=== PATIENT | male | born 1950 | race Caucasian/White ===

== ENCOUNTER 2017-03-26 17:22 | Inpatient (IN) | payer MEDICARE, MEDICAID ==
[~2017-03-26] VITALS: Ht 157.5 cm; Wt 59.0 kg
[2017-03-26 09:00] VITALS: BP 134/79
--- NOTE | 2017-03-26 17:26 | NUR ---
KRISS FROM [facility] DT SP FALL. NO KO, PT IS CO BOTH KNEES PAIN. PATIENT IS ALERT, HOWEEVR CONFUSED. APPEARS IN NO APPARENT DISTRESS. RECEIVED PT ON NON REBREATHER-- SATING 98%. PER REPORT PT WAS SATING HIGH 80S ON ROOM AIR. WILL CONT TO MONITOR. PENDING MD MAHARAJ
[2017-03-26] MEDS ORDERED: BUDE180A IH (17:41)
[2017-03-26] MEDS ORDERED: DOCU-141 PO (17:41)
[2017-03-26] MEDS ORDERED: MONT10TA22 PO (17:41)
[2017-03-26] MEDS ORDERED: TOLN15CR TP (17:41)
[2017-03-26] MEDS ORDERED: ALBU18HF2 IH (17:41)
[2017-03-26] MEDS ORDERED: POTA20TA83 PO (17:41)
[2017-03-26] MEDS ORDERED: DILT240C2 PO (17:41)
[2017-03-26] MEDS ORDERED: FURO40TA5 PO (17:41)
[2017-03-26] MEDS ORDERED: TRIA15CR2 TP (17:41)
[2017-03-26] MEDS ORDERED: Magnesium 1GM/D5W 100ML PREMIX 200 ML IV ONE (17:53)
--- NOTE | 2017-03-26 17:55 | NUR ---
CALLED RT FOR ABG AND BREATHING TREATMENT
[2017-03-26] MEDS ORDERED: DEXAMETHASONE SOD PHOSPHATE 10 MG/ML VIAL ONE (17:59)
[2017-03-26] MEDS ORDERED: Magnesium 1GM/D5W 100ML PREMIX 100 ML IV ONE ×2 (17:59→18:10)
[2017-03-26] MEDS ORDERED: DEXAMETHASONE SOD PHOSPHATE 10 MG/ML VIAL IV ONE (18:00)
[2017-03-26] MEDS ORDERED: IPRATROPIUM NEB FS 0.5 MG/2.5 ML AMPUL.NEB NEB ONE (18:00)
[2017-03-26] MEDS ORDERED: ALBUTEROL FS 2.5 MG/3 ML VIAL.NEB CONTNEB ONE (18:00)
[2017-03-26] MEDS ORDERED: ALBUTEROL FS 2.5 MG/3 ML VIAL.NEB ONE (18:03)
[2017-03-26] MEDS ORDERED: IPRATROPIUM NEB FS 0.5 MG/2.5 ML AMPUL.NEB ONE (18:03)
[2017-03-26 18:20] LABS: BASOPHILS % (AUTO) 0.3 % (0.0-2.0); EOSINOPHILS % (AUTO) 0.1 % (0.0-6.0); HEMATOCRIT 48 % (39-51); HEMOGLOBIN 16.4 g/dL (13.5-17.5); LYMPHOCYTES # (AUTO) 0.7 /CMM (0.8-4.8); LYMPHOCYTES % (AUTO) 8.8 % (20.0-44.0); MEAN CORPUSCULAR HEMOGLOBIN 32 PG (26.0-33.0); MEAN CORPUSCULAR HGB CONC 34 g/dl (31.0-36.0); MEAN CORPUSCULAR VOLUME 93 fL (80-96); MONOCYTES # (AUTO) 0.6 /CMM (0.1-1.30); MONOCYTES % (AUTO) 7.2 % (2.0-12.0); NEUTROPHILS # (AUTO) 6.4 /CMM (1.8-8.9); NEUTROPHILS % (AUTO) 83.6 % (43.0-81.0); PLATELET COUNT (AUTO) 196 /CMM (150-450); RDW COEFFICIENT OF VARIATION 11.8 (11.5-15.0); RED BLOOD CELL COUNT(AUTO) 5.14 MIL/uL (4.5-6.0); WHITE BLOOD COUNT (AUTO) 7.8 K/uL (4.3-11.0)
[2017-03-26 18:22] LABS: POTASSIUM 3.6 mmol/L (3.5-5.1)
[2017-03-26 18:31] LABS: ABG OXYGEN SATURATION 95.2 % (92.0-98.5); ABG PCO2 34.1 mmHg (35.0-45.0); ABG PH 7.495 (7.350-7.450); ABG PO2 71.1 mmHg (75.0-100.0); COHb 1.3 % (0.5-1.5); MetHb 0.6 % (0.0-1.5); O2Hb 93.4 % (94.0-97.0); SITE, ABG Right Radial; VENT MODE, BG SIMPLE MASK
[2017-03-26 18:33] LABS: TROPONIN I 1.431 ng/mL (0.00-0.056)
--- NOTE | 2017-03-26 18:36 | NUR ---
CALLED NURSING SUP. FOR TELE BED
--- NOTE | 2017-03-26 19:04 | NUR ---
REPORT GIVEN TO TIFFANY LYNNE FOR DILLAN
--- NOTE | 2017-03-26 19:07 | NUR ---
REPORT RECEIVED FROM [employer] FOR DILLAN.
[2017-03-26 19:19] LABS: BAND % (MANUAL) 13 % (0.0-5.0); LYMPHOCYTES % (MANUAL) 6 % (16-48); MONOCYTES % (MANUAL) 7 % (0-11.0); NEUTROPHILS % (MANUAL) 74 (42-76)
[2017-03-26] MEDS ORDERED: ASPIRIN 325 MG TABLET PO ONE (20:00)
[2017-03-26] MEDS ORDERED: NITROGLYCERIN PACKET 1 GM PACKET TOP ONE (20:00)
--- NOTE | 2017-03-26 20:10 | NUR ---
NURSES REPEATLY PUT O2 ON PT AND PT CONTINUES TO PULL IT OFF. NURSE SPOKE WITH PT REGARDING RISKS OF NOT WEARING O2. PT REFUSES. PT SAT 83%.
[2017-03-26] MEDS ORDERED: ASPIRIN 325 MG TABLET ONE (20:13)
[2017-03-26] MEDS ORDERED: NITROGLYCERIN PACKET 1 GM PACKET ONE (20:13)
--- NOTE | 2017-03-26 20:26 | NUR ---
D/C NITRO PASTE DUE TO PT B/P 95/47.
[2017-03-26] MEDS ORDERED: IV NS 0.9% 500 ML BAG IV ONE (20:30)
--- NOTE | 2017-03-26 20:35 | NUR ---
REPORT CALLED TO [facility] FOR DILLAN.
--- NOTE | 2017-03-26 20:45 | NUR ---
PT TRANS VIA STRETCHER TO TELE [id number] WITH RN, ACLS PROTOCOL. VSS.
--- NOTE | 2017-03-26 21:00 | NUR ---
MS RN NOTE RECEIVED PATIENT AWAKE ALERT AND ORIENTED ON GAIL FROM ER. PATIENT FELL AT "[facility] [place]". NO DISTRESS NOTED. PATIENT DENIES ANY PAIN AT THIS TIME. RECEIVING 3L OXYGEN VIA NASAL CANNULA. ALL BELONGINGS CHECKED AND ACCOUNTED FOR. IV SITE TO RAC INTACT, WITH BOLUS FINISHING ORDERED. SKIN INTACT, BUT SOME BRUISING NOTED. PICTURES TAKEN AND PLACED IN CHART. WOUND CONSULT ORDERED. ORIENTED PATIENT TO ROOM AND TO UNIT. WAITING FOR MD ORDERS. BED LOCKED AND IN LOWEST POSITION. SIDE RAILS UP, CALL LIGHT WITHIN REACH. WILL CONTINUE TO MONITOR.
[2017-03-26] MEDS ORDERED: HYDROCODONE/APAP 5/325MG 1 EACH TABLET PO PRN (22:30)
[2017-03-26] MEDS ORDERED: Z GUARD REMEDY 2 OZ OINT TP PRN (22:30)
[2017-03-26] MEDS ORDERED: MAGNESIUM HYDROXIDE 30 ML UDC PO PRN (22:30)
[2017-03-26] MEDS ORDERED: ONDANSETRON HCL/PF 4 MG/2 ML VIAL IVP PRN (22:30)
[2017-03-26] MEDS ORDERED: MAG HYDROX/AL HYDROX/SIMETH 30 ML UDC PO PRN (22:30)
[2017-03-26] MEDS ORDERED: ACETAMINOPHEN 325 MG TABLET PO PRN (22:30)
[2017-03-26] MEDS ORDERED: NITROGLYCERIN 0.4 MG/TAB BOTTLE SL PRN (22:30)
[2017-03-27] VITALS: BP_SYST 117; BP_SYST 121; BP_DIAS 79; BP_DIAS 83
[2017-03-27] MEDS ORDERED: LEVOFLOXACIN 750 MG /D5W 150ML 150 ML IV ONE (00:48)
[2017-03-27] MEDS: LEVOFLOXACIN 750 MG /D5W 150ML 750 MG in PREMIX 1 EA IV SCH (00:51)
[2017-03-27] MEDS ORDERED: ALBUTEROL FS 2.5 MG/0.5 ML VIAL.NEB ONE (01:45)
[2017-03-27] MEDS: ALBUTEROL FS 2.5 MG/0.5 ML VIAL.NEB NEB SCH ×4 (01:48→20:11)
[2017-03-27] MEDS ORDERED: LORAZEPAM INJ 2 MG/ML VIAL IV PRN (02:30)
[2017-03-27] MEDS ORDERED: LORAZEPAM INJ 2 MG/ML VIAL IV ONE (02:30)
[2017-03-27] MEDS ORDERED: LORAZEPAM INJ 2 MG/ML VIAL ONE (02:31)
[2017-03-27 04:00] VITALS: BP_SYST 117; BP_SYST 121; BP_DIAS 79; BP_DIAS 83
--- NOTE | 2017-03-27 06:09 | NUR ---
MS RN NOTE PATIENT STABLE. SLEEPING AT THIS TIME. ALL NEEDS MET AND ATTENDED TO. WILL ENDORSE TO DAY SHIFT FOR DILLAN.
[2017-03-27 07:23] LABS: BASOPHILS % (AUTO) 0.1 % (0.0-2.0); HEMATOCRIT 44 % (39-51); HEMOGLOBIN 14.7 g/dL (13.5-17.5); LYMPHOCYTES # (AUTO) 0.5 /CMM (0.8-4.8); LYMPHOCYTES % (AUTO) 8.6 % (20.0-44.0); MEAN CORPUSCULAR HEMOGLOBIN 32 PG (26.0-33.0); MEAN CORPUSCULAR HGB CONC 34 g/dl (31.0-36.0); MEAN CORPUSCULAR VOLUME 95 fL (80-96); MONOCYTES # (AUTO) 0.3 /CMM (0.1-1.30); MONOCYTES % (AUTO) 4.8 % (2.0-12.0); NEUTROPHILS # (AUTO) 4.8 /CMM (1.8-8.9); NEUTROPHILS % (AUTO) 86.5 % (43.0-81.0); PLATELET COUNT (AUTO) 181 /CMM (150-450); WHITE BLOOD COUNT (AUTO) 5.5 K/uL (4.3-11.0)
[2017-03-27 07:24] LABS: CALCIUM, SERUM 8.6 mg/dL (8.5-10.1); CREATININE 0.9 mg/dL (0.6-1.3); POTASSIUM 3.3 mmol/L (3.5-5.1)
[2017-03-27 07:33] LABS: ALBUMIN 2.3 g/dL (3.4-5.0); BILIRUBIN,TOTAL 1.7 mg/dL (0.2-1.0); MAGNESIUM 2.5 mg/dL (1.8-2.4); PHOSPHORUS 2.6 mg/dL (2.5-4.9); TOTAL PROTEIN, SERUM 6.1 g/dL (6.4-8.2)
[2017-03-27 07:37] LABS: THYROID STIMULATING HORMONE 0.387 uIU/mL (0.358-3.74)
[2017-03-27 08:00] VITALS: BP 133/88
--- NOTE | 2017-03-27 08:05 | NUR ---
YAIR MS INITIAL NOTES Received pt laying in bed. a/o x3, respirations are even and unlabored, not in any acute distress noted. PICC line to CONI, dressing intact, no s/sx of infection noted. Denies any pain at this time. Reminded pt to use call light when assistance is needed. Will continue to monitor during shift. Addendum: 03/27/17 at 0817 by VERONICA CARTER RN Incorrect RN MS initial documentation: manager of corporate Initial notes: Received pt laying in bed. a/o x3, respirations are even and unlabored, not in any acute distress noted. Peripheral RAC noted. Denies any pain at this time. currently on ATB for PNA w/ no ASE noted. Will continue to monitor pt during shift. Reminded pt to use call light when assistance is needed.
[2017-03-27 08:12] LABS: TROPONIN I 0.559 ng/mL (0.00-0.056)
[2017-03-27 08:44] LABS: THYROID STIMULATING HORMONE 0.38 uIU/mL (0.358-3.74)
[2017-03-27] MEDS: LACTOBACILLUS RHAMNOSUS GG 1 EACH CAP.SPRINK PO SCH ×2 (08:46→17:24)
[2017-03-27] MEDS: POTASSIUM CHLORIDE 20 MEQ TAB.PRT.SR PO SCH ×2 (08:47→17:25)
[2017-03-27] MEDS: FUROSEMIDE 40 MG TABLET PO SCH (08:47)
[2017-03-27] MEDS: DILTIAZEM HCL CD 240 MG PO SCH (08:47)
[2017-03-27] MEDS: ATORVASTATIN 10 MG TABLET PO SCH (08:47)
[2017-03-27] MEDS: ASPIRIN 81 MG TAB.CHEW PO SCH (08:47)
[2017-03-27] MEDS: DOCUSATE SODIUM 100 MG CAPSULE PO SCH ×2 (08:48→17:24)
[2017-03-27] MEDS: methylPREDNISolone SOD SUCC 40 MG/ML VIAL IV SCH ×3 (08:49→17:24)
[2017-03-27] MEDS: ENOXAPARIN SODIUM 60 MG/0.6 ML DISP.SYRIN SQ SCH ×2 (12:55→22:00)
[2017-03-27 16:00] VITALS: BP 128/78
[2017-03-27] MEDS: MONTELUKAST SODIUM (10MG) 10 MG TABLET PO SCH (17:25)
--- NOTE | 2017-03-27 19:27 | NUR ---
RN MS CLOSING NOTES a/o x3, respirations are even and unlabored, not in any acute distress noted. New peripheral IV access 20gauge to L wrist. tolerated procedure well. No infiltration noted. Denies any pain at this time. Reminded pt to use call light when assistance is needed. endorsed to next shift for continuity of care.
--- NOTE | 2017-03-27 19:30 | NUR ---
RN INITIAL NOTES PATIENT RECEIVED IN BED, ALERT AND ORIENTED X 2, VERBALLY RESPONSIVE AND ABLE TO MAKE NEEDS KNOWN, SITTER AT BEDSIDE. NOTED WITH NO SOB, BREATHING EVEN AND UNLABORED, NO C/O PAIN, IN NO ACUTE DISTRESS. WILL CONTINUE TO MONITOR.
[2017-03-27 20:00] VITALS: BP 105/68
[2017-03-28] VITALS: BP 113/69
[2017-03-28] MEDS: LEVOFLOXACIN 750 MG /D5W 150ML 750 MG in PREMIX 1 EA IV SCH (01:14)
[2017-03-28] MEDS ORDERED: GUAIFENESIN/D-METHORPHAN HB 5 ML UDC ONE (01:22)
[2017-03-28] MEDS ORDERED: GUAIFENESIN/D-METHORPHAN HB 5 ML UDC PO PRN (01:30)
[2017-03-28] MEDS: ALBUTEROL FS 2.5 MG/0.5 ML VIAL.NEB NEB SCH ×4 (01:32→19:28)
[2017-03-28 04:00] VITALS: BP 111/73
[2017-03-28 07:02] LABS: BASOPHILS % (AUTO) 0.1 % (0.0-2.0); HEMATOCRIT 42 % (39-51); HEMOGLOBIN 14.1 g/dL (13.5-17.5); LYMPHOCYTES # (AUTO) 0.7 /CMM (0.8-4.8); LYMPHOCYTES % (AUTO) 9.8 % (20.0-44.0); MEAN CORPUSCULAR HEMOGLOBIN 32 PG (26.0-33.0); MEAN CORPUSCULAR HGB CONC 34 g/dl (31.0-36.0); MEAN CORPUSCULAR VOLUME 95 fL (80-96); MONOCYTES # (AUTO) 0.6 /CMM (0.1-1.30); MONOCYTES % (AUTO) 8.4 % (2.0-12.0); NEUTROPHILS # (AUTO) 5.6 /CMM (1.8-8.9); NEUTROPHILS % (AUTO) 81.7 % (43.0-81.0); PLATELET COUNT (AUTO) 234 /CMM (150-450); RDW COEFFICIENT OF VARIATION 12.8 (11.5-15.0); RED BLOOD CELL COUNT(AUTO) 4.43 MIL/uL (4.5-6.0); WHITE BLOOD COUNT (AUTO) 6.9 K/uL (4.3-11.0)
--- NOTE | 2017-03-28 07:09 | NUR ---
RN CLOSING NOTES PATIENT IN BED, ALERT AND ORIENTED X 2, VERBALLY RESPONSIVE AND ABLE TO MAKE NEEDS KNOWN. NOTED WITH NO SOB, BREATHING EVEN AND UNLABORED, NOTED WITH NO C/O PAIN AT THIS TIME, IN NO ACUTE DISTRESS. SITTER AT BEDSIDE. ALL PATIENT'S NEEDS ATTENDED TO. CALL LIGHT PLACED WITHIN EASY REACH.
[2017-03-28 07:44] LABS: CALCIUM, SERUM 8.6 mg/dL (8.5-10.1); POTASSIUM 3.3 mmol/L (3.5-5.1)
[2017-03-28 08:00] VITALS: BP 104/60
--- NOTE | 2017-03-28 08:00 | NUR ---
TREE GIRDLER NOTES PATIENT IN BED RESTING NO SOB OR ACUTE DISTRESS NOTED. PATIENT ALERT, ORIENTED X2. DENIES ANY CHEST PAIN. BED IN LOW LOCKED POSITION CALL LIGHT WITHIN REACH. SITTER AT BEDSIDE WILL CONTINUE TO MONITOR.
[2017-03-28] MEDS: methylPREDNISolone SOD SUCC 40 MG/ML VIAL IV SCH ×3 (08:49→17:20)
[2017-03-28] MEDS: DOCUSATE SODIUM 100 MG CAPSULE PO SCH ×2 (08:49→17:20)
[2017-03-28] MEDS: FUROSEMIDE 40 MG TABLET PO SCH (08:50)
[2017-03-28] MEDS: DILTIAZEM HCL CD 240 MG PO SCH (08:50)
[2017-03-28] MEDS: ASPIRIN 81 MG TAB.CHEW PO SCH (08:50)
[2017-03-28] MEDS: LACTOBACILLUS RHAMNOSUS GG 1 EACH CAP.SPRINK PO SCH ×2 (08:50→17:20)
[2017-03-28] MEDS: POTASSIUM CHLORIDE 20 MEQ TAB.PRT.SR PO SCH ×5 (08:50→17:20)
[2017-03-28] MEDS: ATORVASTATIN 10 MG TABLET PO SCH (08:53)
[2017-03-28] MEDS: ENOXAPARIN SODIUM 60 MG/0.6 ML DISP.SYRIN SQ SCH ×2 (08:53→21:27)
[2017-03-28] MEDS: BUDESONIDE RESPULE INH 0.25 MG/2 ML AMPUL.NEB NEB SCH (09:23)
[2017-03-28 10:01] LABS: ALBUMIN 2.4 g/dL (3.4-5.0); BILIRUBIN,DIRECT 0.4 mg/dL (0.0-0.2); BILIRUBIN,TOTAL 1.5 mg/dL (0.2-1.0); MAGNESIUM 2.2 mg/dL (1.8-2.4); TOTAL PROTEIN, SERUM 6.2 g/dL (6.4-8.2)
[2017-03-28 10:21] LABS: TROPONIN I 0.288 ng/mL (0.00-0.056)
--- NOTE | 2017-03-28 10:46 | NUR ---
WOUND CARE CONSULT: PT PRESENTS WITH BRUISING TO RT HIP AND LEFT HEEL BUMP WHICH PT STATES IS CHRONIC. RECOMMEND DPM CONSULT. RECOMMENDATIONS MADE FOR SKIN PROTECTION. DISCUSSED WITH NURSING STAFF. PT IS CONTINENT AT THIS TIME AND AMBULATORY. WILL SEE PRN. CHAUDHRY IN AGREEMENT WITH PLAN OF CARE. Addendum: 03/28/17 at 1047 by ADRIENNE JARRETTU Amended: Links added. Addendum: 03/28/17 at 1048 by ADRIENNE JARRETTU PT BECOMES ANXIOUS AND AGITATED AT TIMES. SITTER AT BEDSIDE.
[2017-03-28 12:00] VITALS: BP 117/74
--- NOTE | 2017-03-28 13:00 | NUR ---
CATALYTIC CONVERTER OPERATOR NOTES PATIENT REFUSED BED BATH DESPITE EXPLANATION OF BENEFITS. STATES WHEN HE RETURNEES TO HIS ASSISTED LIVING WILL HAVE A SHOWER THERE.
[2017-03-28] MEDS ORDERED: NORMAL SALINE 10 ML DISP.SYRIN IV PRN (15:00)
--- NOTE | 2017-03-28 15:00 | NUR ---
DISPLAY DEPARTMENT MANAGER NOTES PATIENT TRANSFERRED TO RADIOLOGY FOR CT OF THE ABDOMEN REFUSED ONCE IN RADIOLOGY TRANSFERRED BACK TO ROOM . MD MADE AWARE.
--- NOTE | 2017-03-28 15:28 | NUR ---
PT REFUSING CT SCAN.
[2017-03-28] MEDS ORDERED: IV NS 0.9% 1,000 ML BAG IV PRN (15:30)
[2017-03-28 16:00] VITALS: BP 113/70
[2017-03-28] MEDS: MONTELUKAST SODIUM (10MG) 10 MG TABLET PO SCH (17:20)
[2017-03-28] MEDS: IV NS 0.9% 1,000 ML IV PRN (17:21)
--- NOTE | 2017-03-28 18:58 | NUR ---
LEAN CONSULTANT NOTES PATIENT IN BED RESTING NO SOB OR ACUTE DISTRESS NOTED. PATIENT ALERT, ORIENTED X3. DENIES ANY DISTRESS OR DISCOMFORT. PATIENT WITH PERIPHERAL IV INTACT RUNNING NS AT 70ML/HR. ALL DUE MEDICATIONS ADMINISTERED ALL NEEDS MET WILL ENDORSE CARE TO PM SHIFT.
--- NOTE | 2017-03-28 19:20 | NUR ---
TELE/RN NOTES RECEIVED PT. LYING IN BED. AWAKE, ALERT AND ORIENTED X 2-3. BREATHING EVEN AND UNLABORED ON ROOM AIR. NO SOB, RESPIRATORY DISTRESS OR COMPLAINTS OF PAIN NOTED AT THIS TIME. PT. WITH LEFT FOREARM 20 GAUGE IV SALINE LOCK WITH NS @ 70 ML/HR. PT. WITH EXTERNAL ENGINEER TECHNICAL STAFF PRESENT AND INTACT CURRENT RHYTHM = NSR HR 91. PT. WITH 1:1 SITTER PRESENT AT BEDSIDE. BED LOCKED AND IN LOWEST POSITION, SIDE RAILS UP X2, CALL LIGHT WITHIN REACH, WILL CONTINUE TO MONITOR.
[2017-03-28 20:00] VITALS: BP 117/78
[2017-03-29] VITALS: BP 101/66
--- NOTE | 2017-03-29 00:50 | NUR ---
TELE/RN NOTES CLARIFIED LEVAQUIN MEDICATION WITH EPIC ELECTRIC ENGINE MECHANIC ALIS RUBIN. PT. HAS LEVAQUIN 750MG IVPB AND LEVAQUIN 750MG PO SCHEDULED AT 0100. PER ALIS RUBIN D/C LEVAQUIN IVPB AND ADMINISTER TO PT. LEVAQUIN PO ORDERED. WILL CARRY OUT ORDER. WILL CONTINUE TO MONITOR.
[2017-03-29] MEDS: ALBUTEROL FS 2.5 MG/0.5 ML VIAL.NEB NEB SCH ×4 (01:46→20:12)
[2017-03-29] MEDS: LEVOFLOXACIN (750 MG) 750 MG TABLET PO SCH (01:58)
[2017-03-29 04:00] VITALS: BP 116/70
--- NOTE | 2017-03-29 06:45 | NUR ---
TELE/RN NOTES PT. IS LYING IN BED RESTING. BREATHING EVEN AND UNLABORED ON ROOM AIR. NO SOB, RESPIRATORY DISTRESS OR COMPLAINTS OF PAIN NOTED AT THIS TIME. PT. WITH LEFT FOREARM 20 GAUGE IV SALINE LOCK WITH NS @ 70 ML/HR. PT. WITH EXTERNAL LIPCOAT SPRAYER PRESENT AND INTACT CURRENT RHYTHM = NSR HR 84. PT. WITH 1:1 SITTER PRESENT AT BEDSIDE. ALL PT. NEEDS MET. BED LOCKED AND IN LOWEST POSITION, SIDE RAILS UP X2, CALL LIGHT WITHIN REACH, WILL ENDORSE TO DAYSHIFT NURSE FOR CONTINUITY OF CARE.
[2017-03-29 07:14] LABS: BASOPHILS % (AUTO) 0.1 % (0.0-2.0); HEMATOCRIT 40 % (39-51); HEMOGLOBIN 13.5 g/dL (13.5-17.5); LYMPHOCYTES # (AUTO) 0.8 /CMM (0.8-4.8); LYMPHOCYTES % (AUTO) 9.2 % (20.0-44.0); MEAN CORPUSCULAR HEMOGLOBIN 32 PG (26.0-33.0); MEAN CORPUSCULAR HGB CONC 34 g/dl (31.0-36.0); MEAN CORPUSCULAR VOLUME 94 fL (80-96); MONOCYTES # (AUTO) 0.9 /CMM (0.1-1.30); MONOCYTES % (AUTO) 10.8 % (2.0-12.0); NEUTROPHILS # (AUTO) 6.6 /CMM (1.8-8.9); NEUTROPHILS % (AUTO) 79.9 % (43.0-81.0); PLATELET COUNT (AUTO) 258 /CMM (150-450); RDW COEFFICIENT OF VARIATION 12.8 (11.5-15.0); RED BLOOD CELL COUNT(AUTO) 4.23 MIL/uL (4.5-6.0); WHITE BLOOD COUNT (AUTO) 8.3 K/uL (4.3-11.0)
[2017-03-29 07:27] LABS: ALBUMIN 2.2 g/dL (3.4-5.0); CALCIUM, SERUM 8.3 mg/dL (8.5-10.1); MAGNESIUM 2.3 mg/dL (1.8-2.4); PHOSPHORUS 3.1 mg/dL (2.5-4.9); POTASSIUM 4.7 mmol/L (3.5-5.1); TOTAL PROTEIN, SERUM 5.7 g/dL (6.4-8.2)
--- NOTE | 2017-03-29 07:30 | NUR ---
RN NOTES PT RECEIVED IN BED RESTING COMFORTABLY, ABLE TO MAKE NEEDS KNOWN, EASILY AROUSABLE DURING CARE. RESPIRATIONS EVEN AND UNLABORED ON ROOM AIR. DENIES ANY PAIN OR DISCOMFORT AT THIS TIME. PT WITH LEFT FOREARM 20 GAUGE IV SALINE LOCK WITH NS @ 70 ML/HR. PT. WITH EXTERNAL SENIOR DESIGNER PRESENT . WITH 1:1 SITTER PRESENT AT BEDSIDE. ALL PT. NEEDS MET. BED LOCKED AND IN LOWEST POSITION, SIDE RAILS UP X2, CALL LIGHT WITHIN REACH, WILL CONTINUE TO MONITOR
[2017-03-29 07:33] LABS: TROPONIN I 0.156 ng/mL (0.00-0.056)
[2017-03-29 08:00] VITALS: BP 133/90
--- NOTE | 2017-03-29 08:30 | NUR ---
RN NOTES PATIENT REFUSED CT OF ABDOMEN X3 EXPLAINED MD ORDERS STRONGLY REFUSED WILL NOTIFY MD
[2017-03-29] MEDS: DOCUSATE SODIUM 100 MG CAPSULE PO SCH ×2 (08:59→17:09)
[2017-03-29] MEDS: POTASSIUM CHLORIDE 20 MEQ TAB.PRT.SR PO SCH (08:59)
[2017-03-29] MEDS: methylPREDNISolone SOD SUCC 40 MG/ML VIAL IV SCH ×3 (08:59→17:09)
[2017-03-29] MEDS: ATORVASTATIN 10 MG TABLET PO SCH (09:00)
[2017-03-29] MEDS: DILTIAZEM HCL CD 240 MG PO SCH (09:00)
[2017-03-29] MEDS: LACTOBACILLUS RHAMNOSUS GG 1 EACH CAP.SPRINK PO SCH ×2 (09:01→17:09)
[2017-03-29] MEDS: FUROSEMIDE 40 MG TABLET PO SCH (09:01)
[2017-03-29] MEDS: ASPIRIN 81 MG TAB.CHEW PO SCH (09:01)
[2017-03-29] MEDS: ENOXAPARIN SODIUM 60 MG/0.6 ML DISP.SYRIN SQ SCH (09:02)
[2017-03-29] MEDS: BUDESONIDE RESPULE INH 0.25 MG/2 ML AMPUL.NEB NEB SCH ×2 (09:52→16:50)
[2017-03-29 15:03] LABS: APPEARANCE,URINE SL CLOUDY (CLEAR); BILIRUBIN,URINE NEGATIVE (NEGATIVE); BLOOD, URINE 1+ Ery/uL (NEGATIVE); COLOR,URINE YELLOW (YELLOW); KETONES,URINE NEGATIVE (NEGATIVE); LEUKOCYTE ESTERASE ,URINE NEGATIVE (NEGATIVE); NITRITE, URINE NEGATIVE (NEGATIVE); PROTEIN,URINE NEGATIVE (NEGATIVE); UGLUCOSE NEGATIVE (NEGATIVE); UROBILINOGEN,URINE 0.2 EU/dL (0.2)
[2017-03-29 15:35] LABS: BACTERIA,URINE None seen /HPF (None Seen); SQUAMOUS EPITHELIAL CELL,UR Rare /HPF (None Seen); WBC,URINE 0-2 /HPF (0-3)
[2017-03-29 16:00] VITALS: BP 111/67
--- NOTE | 2017-03-29 17:00 | NUR ---
RN NOTES DR. LAGUNAS IN FACILITY AWARE, PT IS REFUSING CT OF ABDOMEN, NO NEW ORDERS AT THIS TIME WILL CONTINUE TO MONITOR
[2017-03-29] MEDS: IV NS 0.9% 1,000 ML IV PRN (17:09)
[2017-03-29] MEDS: MONTELUKAST SODIUM (10MG) 10 MG TABLET PO SCH (17:09)
--- NOTE | 2017-03-29 18:56 | NUR ---
RN CLOSING NOTES ALL NEEDS ANTICIPATED AND RENDERED. A/O X2-3, RESPIRATIONS ARE EVEN AND UNLABORED, NOT IN ANY ACUTE DISTRESS NOTED. DENIES ANY PAIN AT THIS TIME. PT REFUSED CT SCAN AND RECEIVED ORDER TO D/C. PT CONTNUES TO BE ON FALL RISK AND WITH ONE SITTER AT BEDSIDE. PT IS ALSO CONTINENT OF BOTH BLADDER AND BOWEL WITH ONE PERSON ASSIST TO THE BATHROOM. WILL ENDORSE TO NEXT SHIFT FOR CONTINUITY OF CARE.
--- NOTE | 2017-03-29 19:35 | NUR ---
MS RN NOTES RECEIVED ON BED A/O X2-3,BREATHING NON LABORED,O2 SAT 94% ON ROOM AIR.PRESENT IVF NS 70ML/HR RATE IN PROGRESS VIA IV PUMP,SITE PATENT ON LFA.INSTRUCTED NPO EXCEPT MEDS AFTER MIDNIGHT FOR STRESS TEST TOMORROW.RT AT BEDSIDE TO ADMINISTER BREATHING TREATMENT SCHEDULED.
[2017-03-29 20:00] VITALS: BP 130/80
--- NOTE | 2017-03-30 01:00 | NUR ---
MS RN NOTES DUE LEVAQUIN 750MG PO ADMINISTERED WITH SIPS OF WATER,TAKEN WELL.
[2017-03-30] MEDS: LEVOFLOXACIN (750 MG) 750 MG TABLET PO SCH (01:20)
[2017-03-30] MEDS: ALBUTEROL FS 2.5 MG/0.5 ML VIAL.NEB NEB SCH ×3 (01:51→10:02)
--- NOTE | 2017-03-30 04:00 | NUR ---
MS RN NOTES SOUND ASLEEP,SITTER AT BEDSIDE FOR SAFETY.
--- NOTE | 2017-03-30 06:16 | NUR ---
MS RN NOTES FAIRLY RESTED,SLEPT WITH INTERVALS,NO FALL NO INJURY,SITTER AT BEDSIDE FOR SAFETY.KEPT NPO EXCEPT EDS FOR STRESS TEST.WILL ENDORSE TO DAY NURSE FOR DILLAN.
--- NOTE | 2017-03-30 07:42 | NUR ---
RN MS INITIAL NOTES RECEIVED PT LAYING IN BED WITH HOB ELEVATED. AWAKE, ALERT AND ORIENTED X2-3 WITH FORGETFULNESS. RESPIRATIONS ARE EVEN AND UNLABORED, NOT IN ANY ACUTE DISTRESS NOTED. CURRENTLY NPO DUE TO SCHEDULED STRESS TEST. DENIES ANY PAIN AT THIS TIME. PT HAS ONE SITTER AT BEDSIDE. REMINDED PT TO LET SITTER KNOW AND USE CALL LIGHT WHEN ASSISTANCE IS NEEDED. WILL CONTINUE TO MONITOR DURING SHIFT.
[2017-03-30 08:00] VITALS: BP 130/75
[2017-03-30] MEDS ORDERED: REGADENOSON 0.4 MG/5 ML DISP.SYRIN IVP ONE (08:00)
[2017-03-30 08:18] VITALS: BP 130/75
[2017-03-30 08:18] LABS: IMMUNOGLOBULIN A, SERUM 202 mg/dL (61-437); IMMUNOGLOBULIN G, SERUM 712 mg/dL (700-1600); IMMUNOGLOBULIN M, SERUM 44 mg/dL (20-172)
[2017-03-30] MEDS: DILTIAZEM HCL CD 240 MG PO SCH (08:18)
[2017-03-30] MEDS: ASPIRIN 81 MG TAB.CHEW PO SCH (08:18)
[2017-03-30] MEDS: DOCUSATE SODIUM 100 MG CAPSULE PO SCH (08:19)
[2017-03-30] MEDS: LACTOBACILLUS RHAMNOSUS GG 1 EACH CAP.SPRINK PO SCH (08:19)
[2017-03-30] MEDS: methylPREDNISolone SOD SUCC 40 MG/ML VIAL IV SCH ×2 (08:19→12:23)
[2017-03-30] MEDS: BUDESONIDE RESPULE INH 0.25 MG/2 ML AMPUL.NEB NEB SCH ×2 (09:00→10:05)
[2017-03-30] MEDS: ATORVASTATIN 10 MG TABLET PO SCH (09:36)
[2017-03-30] MEDS ORDERED: ASPI-1169 PO (13:04)
[2017-03-30] MEDS ORDERED: LEVO750T21 PO (13:04)
[2017-03-30] MEDS ORDERED: ATOR10TA PO (13:04)
[2017-03-30] MEDS ORDERED: METH4TAB17 PO (13:04)
[2017-03-30 14:17] LABS: *SPE ALBUMIN 2.5 g/dL (2.9-4.4); *SPE ALPHA-1-GLOBULIN 0.3 g/dL (0.0-0.4); *SPE ALPHA-2-GLOBULIN 0.9 g/dL (0.4-1.0); *SPE BETA GLOBULIN 0.7 g/dL (0.7-1.3); *SPE GLOBULIN, TOTAL 2.6 g/dL (2.2-3.9); *SPE M-SPIKE Not Observed g/dL (Not Observed); *SPEGAMMA GLOBULIN 0.7 g/dL (0.4-1.8)
--- NOTE | 2017-03-30 15:30 | NUR ---
RN MS DISCHARGE NOTES PT D/C'D TO [facility] IN STABLE CONDITION 1530. A/O X2-3 WITH FORGETFUL. RESPIRATIONS ARE EVEN AND UNLABORED, NOT IN ANY ACUTE DISTRESS NOTED. VITAL SIGNS ARE WNL. DENIES ANY PAIN AT THIS TIME. DISCHARGE PAPERWORK EXPLAINED TO PATIENT WITH VERBAL UNDERSTANDING. PICTURES WERE TAKEN TO BLE. PAPERWORKS AND BELONGING SHEET SIGNED BY PT AND ALL BELONGS WERE SENT WITH PT. REPORT GIVEN TO [facility]. TRANSPORTATION PERSONNEL FROM THE [facility] CAME TO P/U PT VIA WHEELCHAIR IN STABLE CONDITION.
--- NOTE | 2017-03-30 16:50 | NUR ---
ADDENDUM TO RN DISHCARGE NOTE: IV LINE D/C'D W/ NO BLEEDING, NO S/SX OF INFECTION NOTED. PT TOLERATED WELL.
== END 2017-03-30 15:15 | DRG 177 ==
LOC: ER 17:24 → TELE 20:10 → MED 03-29 09:06
PROVIDERS: ADMIT Legal Medicine; ATTEND Legal Medicine
DX: J15.6 Pneumonia due to other Gram-negative bacteria (principal); I21.4 Non-ST elevation (NSTEMI) myocardial infarction; J96.01 Acute respiratory failure with hypoxia; N17.0 Acute kidney failure with tubular necrosis; J45.901 Unspecified asthma with (acute) exacerbation; E88.09 Other disorders of plasma-protein metabolism, not elsewhere classified; E83.52 Hypercalcemia; R17 Unspecified jaundice; J98.11 Atelectasis; I11.0 Hypertensive heart disease with heart failure; I50.9 Heart failure, unspecified; K44.9 Diaphragmatic hernia without obstruction or gangrene; J15.9 Unspecified bacterial pneumonia; E87.6 Hypokalemia; I25.10 Atherosclerotic heart disease of native coronary artery without angina pectoris; I10 Essential (primary) hypertension; I87.2 Venous insufficiency (chronic) (peripheral); Z88.2 Allergy status to sulfonamides; Z79.899 Other long term (current) drug therapy; R29.6 Repeated falls; M41.9 Scoliosis, unspecified; I87.8 Other specified disorders of veins; M85.671 Other cyst of bone, right ankle and foot
CPT/HCPCS: 36415; 36600; 71010-TC; 71250-TC; 73564-TC; 76536-TC; 80048-TC; 80053-TC; 80061-TC; 80076-TC; 81000-TC; 82306; 82784; 83605-TC; 83615-TC; 83735-TC; 83880; 84100-TC; 84153-TC; 84155; 84165; 84439-TC; 84443-TC; 84484-TC; 85025-TC; 86301; 86334; 87081-TC; 87400; 93307-TC; 93970-TC; 94799-TC; A4216; A9502; J1100; J1650; J1956; J2060; J2785; J2920; J3475; J7030; J7040; Z7610

== ENCOUNTER 2017-12-08 16:43 | Inpatient (IN) | payer MEDICARE, OTHER ==
[~2017-12-08] VITALS: Ht 152.4 cm; Wt 60.8 kg
[~2017-12-08 16:43] MED LIST: ALBU18HF2 IH; ASPI-1169 PO; ATOR10TA PO; BUDE180A IH; DILT240C2 PO; DOCU-141 PO; FURO40TA5 PO; LEVO750T21 PO; METH4TAB17 PO; MONT10TA22 PO; POTA20TA83 PO; TOLN15CR TP; TRIA15CR2 TP
[2017-12-08] MEDS ORDERED: ATOR10TA PO (17:22)
[2017-12-08] MEDS ORDERED: ASPI-1169 PO (17:22)
[2017-12-08] MEDS ORDERED: MUPI22OI7 TD (17:22)
[2017-12-08] MEDS ORDERED: ONDANSETRON HCL/PF 4 MG/2 ML VIAL ONE (17:29)
[2017-12-08] MEDS ORDERED: PIPERACILLIN /TAZOBACTAM 3.375 G in IV D5W 50 ML IV ONE (17:30)
[2017-12-08] MEDS ORDERED: VANCOMYCIN 1 GM in IV D5W 250 ML IV ONE (17:30)
[2017-12-08] MEDS ORDERED: MORPHINE SULFATE INJ 4 MG/ML DISP.SYRIN ONE (17:30)
[2017-12-08] MEDS ORDERED: MORPHINE SULFATE INJ 2 MG/ML DISP.SYRIN IV ONE (17:30)
[2017-12-08] MEDS ORDERED: ONDANSETRON HCL/PF 4 MG/2 ML VIAL IVP ONE (17:30)
[2017-12-08] MEDS ORDERED: CLINDAMYCIN 600 MG in IV D5W 100 ML IV ONE (17:30)
[2017-12-08] MEDS ORDERED: IV NS 0.9% 1,000 ML BAG IV ONE (17:30)
[2017-12-08 17:31] LABS: BASOPHILS # (AUTO) 0.1 /CMM (0.0-0.2); BASOPHILS % (AUTO) 0.8 % (0.0-2.0); HEMATOCRIT 51 % (39-51); HEMOGLOBIN 17.2 g/dL (13.5-17.5); LYMPHOCYTES # (AUTO) 0.4 /CMM (0.8-4.8); LYMPHOCYTES % (AUTO) 3.7 % (20.0-44.0); MEAN CORPUSCULAR HEMOGLOBIN 32 PG (26.0-33.0); MEAN CORPUSCULAR HGB CONC 34 g/dl (31.0-36.0); MEAN CORPUSCULAR VOLUME 94 fL (80-96); MONOCYTES # (AUTO) 0.6 /CMM (0.1-1.30); MONOCYTES % (AUTO) 5.9 % (2.0-12.0); NEUTROPHILS # (AUTO) 8.9 /CMM (1.8-8.9); NEUTROPHILS % (AUTO) 89.6 % (43.0-81.0); PLATELET COUNT (AUTO) 205 /CMM (150-450); RDW COEFFICIENT OF VARIATION 11.9 (11.5-15.0); RED BLOOD CELL COUNT(AUTO) 5.42 MIL/uL (4.5-6.0)
[2017-12-08 17:42] LABS: CALCIUM, SERUM 9.3 mg/dL (8.5-10.1); CARBON DIOXIDE 29 mmol/L (21-32); CHLORIDE 98 mmol/L (98-107); GLUCOSE 96 mg/dL (74-106); POTASSIUM 3.4 mmol/L (3.5-5.1); SODIUM SERUM 134 mmol/L (136-145); UREA NITROGEN, BLOOD 22 mg/dL (7-18)
[2017-12-08 17:44] LABS: INR 1.17 (0.85-1.15)
[2017-12-08 17:47] LABS: ALANINE AMINOTRANSFERASE 38 U/L (12-78); ALBUMIN 3.5 g/dL (3.4-5.0); ALKALINE PHOSPHATASE 84 U/L (46-116); ASPARTATE AMINOTRANSFERASE 62 U/L (15-37); BILIRUBIN,DIRECT 0.3 mg/dL (0.0-0.2); BILIRUBIN,TOTAL 2.9 mg/dL (0.2-1.0); TOTAL PROTEIN, SERUM 7.2 g/dL (6.4-8.2)
[2017-12-08 17:48] LABS: TROPONIN I < 0.017 ng/mL (0.00-0.056)
[2017-12-08] MEDS ORDERED: ENOXAPARIN SODIUM 60 MG/0.6 ML DISP.SYRIN SQ STA (18:48)
[2017-12-08 18:53] LABS: APPEARANCE,URINE Clear (CLEAR); BILIRUBIN,URINE Negative (NEGATIVE); BLOOD, URINE Moderate Ery/uL (NEGATIVE); COLOR,URINE Yellow (YELLOW); KETONES,URINE 15 (NEGATIVE); LEUKOCYTE ESTERASE ,URINE Negative (NEGATIVE); NITRITE, URINE Negative (NEGATIVE); PROTEIN,URINE Negative (NEGATIVE); UGLUCOSE Negative (NEGATIVE); UROBILINOGEN,URINE 0.2 EU/dL (0.2)
[2017-12-08 19:36] LABS: BACTERIA,URINE Rare /HPF (None Seen); MUCUS,URINE Few /LPF (None Seen); RBC,URINE 51-80 /HPF (0-2); SQUAMOUS EPITHELIAL CELL,UR Few /HPF (None Seen); URINE AMORPHOUS URATE Few /HPF (None Seen)
[2017-12-08 20:00] VITALS: BP 148/92
[2017-12-08] MEDS ORDERED: ACETAMINOPHEN 325 MG TABLET PO PRN (21:00)
[2017-12-08] MEDS ORDERED: ENOXAPARIN SODIUM 60 MG/0.6 ML DISP.SYRIN SQ SCH (21:00)
[2017-12-08] MEDS ORDERED: ONDANSETRON HCL/PF 4 MG/2 ML VIAL IVP PRN (21:00)
[2017-12-08] MEDS ORDERED: FEE PK DOSING 1 MIN EA MC ONE (21:06)
[2017-12-08 21:45] VITALS: BP 147/99
[2017-12-08] MEDS ORDERED: ENOXAPARIN SODIUM 80 MG/0.8 ML DISP.SYRIN SQ ONE (22:02)
[2017-12-08] MEDS: ENOXAPARIN SODIUM 80 MG/0.8 ML DISP.SYRIN SQ SCH (22:12)
[2017-12-09] MEDS: VANCOMYCIN 1 GM in IV D5W 250 ML IV SCH ×2 (06:02→17:21)
[2017-12-09 06:43] LABS: BASOPHILS % (AUTO) 0.2 % (0.0-2.0); HEMATOCRIT 43 % (39-51); HEMOGLOBIN 14.4 g/dL (13.5-17.5); LYMPHOCYTES # (AUTO) 0.6 /CMM (0.8-4.8); LYMPHOCYTES % (AUTO) 7.4 % (20.0-44.0); MEAN CORPUSCULAR HEMOGLOBIN 32 PG (26.0-33.0); MEAN CORPUSCULAR HGB CONC 33 g/dl (31.0-36.0); MEAN CORPUSCULAR VOLUME 97 fL (80-96); MONOCYTES # (AUTO) 0.9 /CMM (0.1-1.30); MONOCYTES % (AUTO) 11.5 % (2.0-12.0); NEUTROPHILS # (AUTO) 6.6 /CMM (1.8-8.9); NEUTROPHILS % (AUTO) 80.9 % (43.0-81.0); PLATELET COUNT (AUTO) 184 /CMM (150-450); RDW COEFFICIENT OF VARIATION 12.6 (11.5-15.0); RED BLOOD CELL COUNT(AUTO) 4.46 MIL/uL (4.5-6.0); WHITE BLOOD COUNT (AUTO) 8.2 K/uL (4.3-11.0)
[2017-12-09 06:46] LABS: CALCIUM, SERUM 8.1 mg/dL (8.5-10.1); CREATININE 0.7 mg/dL (0.6-1.3)
[2017-12-09] MEDS ORDERED: CLONIDINE HCL 0.1 MG TABLET PO PRN (08:00)
[2017-12-09] MEDS: PANTOPRAZOLE 40 MG TABLET.DR PO SCH (08:34)
[2017-12-09] MEDS ORDERED: POTASSIUM CHLORIDE 20 MEQ TAB.PRT.SR PO ONE (09:00)
[2017-12-09] MEDS ORDERED: BUDESONIDE INH SCH (09:00)
[2017-12-09] MEDS: ATORVASTATIN 10 MG TABLET PO SCH (09:23)
[2017-12-09] MEDS: ENOXAPARIN SODIUM 80 MG/0.8 ML DISP.SYRIN SQ SCH ×2 (09:23→22:03)
[2017-12-09] MEDS: POTASSIUM CHLORIDE 20 MEQ TAB.PRT.SR PO SCH ×2 (09:23→17:22)
[2017-12-09] MEDS: FUROSEMIDE 40 MG TABLET PO SCH (09:24)
[2017-12-09] MEDS: DOCUSATE SODIUM 100 MG CAPSULE PO SCH ×2 (09:24→17:22)
[2017-12-09] MEDS: ASPIRIN 81 MG TAB.CHEW PO SCH (09:24)
[2017-12-09] MEDS ORDERED: Z GUARD REMEDY 2 OZ OINT TP PRN (10:00)
[2017-12-09] MEDS: DILTIAZEM HCL CD 240 MG PO SCH (11:20)
[2017-12-09] MEDS ORDERED: ALBUTEROL FS 2.5 MG/3 ML VIAL.NEB NEB PRN (13:30)
[2017-12-09 16:00] VITALS: BP 149/84
[2017-12-09] MEDS: MONTELUKAST SODIUM (10MG) 10 MG TABLET PO SCH (17:22)
[2017-12-09 20:00] VITALS: BP 154/98
[2017-12-10 07:05] LABS: CALCIUM, SERUM 8.4 mg/dL (8.5-10.1); CREATININE 0.8 mg/dL (0.6-1.3); POTASSIUM 3.1 mmol/L (3.5-5.1)
[2017-12-10] MEDS: VANCOMYCIN 1 GM in IV D5W 250 ML IV SCH ×2 (07:35→17:17)
[2017-12-10 08:00] VITALS: BP 147/72
[2017-12-10] MEDS: ATORVASTATIN 10 MG TABLET PO SCH (08:41)
[2017-12-10] MEDS: DILTIAZEM HCL CD 240 MG PO SCH (08:41)
[2017-12-10] MEDS: DOCUSATE SODIUM 100 MG CAPSULE PO SCH ×2 (08:41→16:35)
[2017-12-10] MEDS: ASPIRIN 81 MG TAB.CHEW PO SCH (08:41)
[2017-12-10] MEDS: FUROSEMIDE 40 MG TABLET PO SCH (08:41)
[2017-12-10] MEDS: POTASSIUM CHLORIDE 20 MEQ TAB.PRT.SR PO SCH ×2 (08:42→16:35)
[2017-12-10] MEDS: PANTOPRAZOLE 40 MG TABLET.DR PO SCH (08:42)
[2017-12-10] MEDS: ENOXAPARIN SODIUM 80 MG/0.8 ML DISP.SYRIN SQ SCH (09:30)
[2017-12-10] MEDS ORDERED: POTASSIUM CHLORIDE 20 MEQ TAB.PRT.SR PO ONE (13:00)
[2017-12-10 16:00] VITALS: BP 125/75
[2017-12-10] MEDS: RIVAROXABAN 10 MG TABLET PO SCH (16:35)
[2017-12-10] MEDS: MONTELUKAST SODIUM (10MG) 10 MG TABLET PO SCH (17:17)
[2017-12-10] MEDS: BUDESONIDE RESPULE INH 0.25 MG/2 ML AMPUL.NEB NEB SCH (19:30)
[2017-12-10 20:00] VITALS: BP 125/80
[2017-12-11] MEDS: VANCOMYCIN 1 GM in IV D5W 250 ML IV SCH (05:32)
[2017-12-11] MEDS: BUDESONIDE RESPULE INH 0.25 MG/2 ML AMPUL.NEB NEB SCH (07:30)
[2017-12-11 07:37] LABS: POTASSIUM 3.8 mmol/L (3.5-5.1)
[2017-12-11 08:00] VITALS: BP 96/69
[2017-12-11] MEDS: PANTOPRAZOLE 40 MG TABLET.DR PO SCH (08:54)
[2017-12-11] MEDS: DOCUSATE SODIUM 100 MG CAPSULE PO SCH ×2 (08:54→16:17)
[2017-12-11] MEDS: POTASSIUM CHLORIDE 20 MEQ TAB.PRT.SR PO SCH ×2 (08:54→16:17)
[2017-12-11] MEDS: ATORVASTATIN 10 MG TABLET PO SCH (08:54)
[2017-12-11] MEDS: FUROSEMIDE 40 MG TABLET PO SCH (08:54)
[2017-12-11] MEDS: ASPIRIN 81 MG TAB.CHEW PO SCH (08:54)
[2017-12-11] MEDS: DILTIAZEM HCL CD 240 MG PO SCH (08:55)
[2017-12-11 09:51] VITALS: BP 96/69
[2017-12-11] MEDS ORDERED: CEPH-570 PO (12:12)
[2017-12-11] MEDS: RIVAROXABAN 10 MG TABLET PO SCH (16:17)
== END 2017-12-11 17:42 | DRG 872 ==
LOC: ER 16:45 → MED 18:30 → MEDSG2 21:32
PROVIDERS: ADMIT Legal Medicine; ATTEND Legal Medicine
DX: A41.9 Sepsis, unspecified organism (principal); I82.411 Acute embolism and thrombosis of right femoral vein; L97.329 Non-pressure chronic ulcer of left ankle with unspecified severity; L03.115 Cellulitis of right lower limb; I87.8 Other specified disorders of veins; J44.9 Chronic obstructive pulmonary disease, unspecified; I11.0 Hypertensive heart disease with heart failure; E87.6 Hypokalemia; I89.0 Lymphedema, not elsewhere classified; I87.2 Venous insufficiency (chronic) (peripheral); I50.9 Heart failure, unspecified
CPT/HCPCS: 36415; 71045-TC; 73590-TC; 80048-TC; 80076-TC; 80202-TC; 81000-TC; 83605-TC; 84484-TC; 85025-TC; 85730-TC; 87040-TC; 87081-TC; 87086-TC; 93971-TC; A4606; J1650; J2270; J2405; J2543; J3370; J3490; J7030; J7050; J7060; Z7610

== ENCOUNTER 2018-10-05 11:57 | Inpatient (IN) | payer MEDICARE, OTHER ==
[~2018-10-05] VITALS: Ht 149.9 cm; Wt 52.6 kg
[~2018-10-05 11:57] MED LIST changes: +CEPH-570 PO; -LEVO750T21 PO; -METH4TAB17 PO; +MUPI22OI7 TD
--- NOTE | 2018-10-05 12:08 | NUR ---
PT [facility], PER REPORT SEND BY PD FOR INCREASING CUNFUSION. PT IS AAOX2, NOT IN RESPIRATORY DISTRESS, V/S STABLE, KEPT RESTED AND COMFORTABLE, WILL CONTINUE TO MONITOR.
[2018-10-05] MEDS ORDERED: TRAM50TA2 PO (12:16)
[2018-10-05] MEDS ORDERED: APIX5TAB PO (12:16)
[2018-10-05] MEDS ORDERED: VITA1TAB56 PO (12:16)
[2018-10-05] MEDS ORDERED: MULT-447 PO (12:16)
--- NOTE | 2018-10-05 12:20 | NUR ---
SEEN AND EXAMINED BY DR. FONSECA.
[2018-10-05] MEDS ORDERED: IV NS 0.9% 1,000 ML BAG IV ONE (12:30)
--- NOTE | 2018-10-05 12:30 | NUR ---
URINE SPECIMEN COLLECTED AND SENT TO LAB.
--- NOTE | 2018-10-05 12:35 | NUR ---
IV LINE ESTABLISHED, BLOOD DRAWNED AND SENT TO LAB.
[2018-10-05 12:38] LABS: BASOPHILS # (AUTO) 0.1 /CMM (0.0-0.2); BASOPHILS % (AUTO) 1.2 % (0.0-2.0); EOSINOPHILS % (AUTO) 0.7 % (0.0-6.0); HEMATOCRIT 42 % (39-51); LYMPHOCYTES # (AUTO) 0.7 /CMM (0.8-4.8); LYMPHOCYTES % (AUTO) 14.8 % (20.0-44.0); MEAN CORPUSCULAR HGB CONC 33 g/dl (31.0-36.0); MEAN CORPUSCULAR VOLUME 96 fL (80-96); MONOCYTES # (AUTO) 0.8 /CMM (0.1-1.30); MONOCYTES % (AUTO) 16.6 % (2.0-12.0); NEUTROPHILS # (AUTO) 3.3 /CMM (1.8-8.9); NEUTROPHILS % (AUTO) 66.7 % (43.0-81.0); PLATELET COUNT (AUTO) 247 /CMM (150-450); RED BLOOD CELL COUNT(AUTO) 4.39 MIL/uL (4.5-6.0); WHITE BLOOD COUNT (AUTO) 4.9 K/uL (4.3-11.0)
[2018-10-05 12:39] LABS: APPEARANCE,URINE Clear (CLEAR); BILIRUBIN,URINE Negative (NEGATIVE); BLOOD, URINE Large Ery/uL (NEGATIVE); COLOR,URINE Yellow (YELLOW); KETONES,URINE Negative (NEGATIVE); LEUKOCYTE ESTERASE ,URINE Negative (NEGATIVE); NITRITE, URINE Negative (NEGATIVE); PROTEIN,URINE Negative (NEGATIVE); UGLUCOSE Negative (NEGATIVE); UROBILINOGEN,URINE 0.2 EU/dL (0.2)
[2018-10-05 12:42] LABS: BACTERIA,URINE Few /HPF (None Seen); SQUAMOUS EPITHELIAL CELL,UR Few /HPF (None Seen); WBC,URINE 0-2 /HPF (0-3)
--- NOTE | 2018-10-05 12:48 | NUR ---
PT IS WHEELED TO CT SCAN VIA [facility].
[2018-10-05 13:16] LABS: ALANINE AMINOTRANSFERASE 25 U/L (12-78); ALBUMIN 3.8 g/dL (3.4-5.0); ALCOHOL, BLOOD < 3 mg/dL (0-0); ALKALINE PHOSPHATASE 86 U/L (46-116); ASPARTATE AMINOTRANSFERASE 26 U/L (15-37); BILIRUBIN,DIRECT 0.3 mg/dL (0.0-0.2); BILIRUBIN,TOTAL 1.4 mg/dL (0.2-1.0); CALCIUM, SERUM 9.3 mg/dL (8.5-10.1); CARBON DIOXIDE 29 mmol/L (21-32); CHLORIDE 98 mmol/L (98-107); GLUCOSE 79 mg/dL (74-106); SODIUM SERUM 137 mmol/L (136-145); TOTAL PROTEIN, SERUM 7.3 g/dL (6.4-8.2); UREA NITROGEN, BLOOD 26 mg/dL (7-18)
[2018-10-05 13:26] LABS: CREATININE 0.9 mg/dL (0.6-1.3)
[2018-10-05 13:27] LABS: SERUM AMMONIA 7 umol/L (11-32)
[2018-10-05 14:14] LABS: THYROID STIMULATING HORMONE 1.918 uIU/mL (0.358-3.74)
--- NOTE | 2018-10-05 14:22 | NUR ---
CALLED ARTIST WOODBLOCK JESENIA KNIGHT 1HR
[2018-10-05 15:45] LABS: ACETAMINOPHEN < 10 ug/ml (10-30); SALICYLATE < 3.0 mg/dL (2.8-20.0)
--- NOTE | 2018-10-05 15:54 | NUR ---
GPS 214-1
--- NOTE | 2018-10-05 15:55 | NUR ---
RN ANTONIA CRISIS TEAM AT BEDSIDE FOR EVAL.
--- NOTE | 2018-10-05 16:45 | NUR ---
REPORT GIVEN TO YAIR ROJAS FOR DILLAN.
[2018-10-05] MEDS ORDERED: ZOLPIDEM TARTRATE 5 MG TABLET PO PRN (18:00)
[2018-10-05] MEDS ORDERED: MAG HYDROX/AL HYDROX/SIMETH 30 ML UDC PO PRN (18:00)
[2018-10-05] MEDS ORDERED: ACETAMINOPHEN 325 MG TABLET PO PRN (18:00)
[2018-10-05] MEDS ORDERED: MAGNESIUM HYDROXIDE 30 ML UDC PO PRN (18:00)
--- NOTE | 2018-10-05 18:22 | NUR ---
POST ACUTE CARE NURSE NOTE: PATIENT IS A 68 YEAR OLD MALE BROUGHT BY AMBULANCE TO [facility] ER FROM [facility], ADMITTED ON A 5150 GD. PER HOLD, PSYCH EVALUATION REQUESTED BY ER MD FOR THIS 68 BROUGHT BY AMBULANCE TO ER FROM [facility]. JOI HAS BEEN INCREASINGLY CONFUSED AND NON-COMPLIANT WITH CARE AT THE FACILITY. WHEN INTERVIEW ATTEMPTED FACE TO FACE AT THE BEDSIDE, JOI WAS CONFUSED, HE STATED "THOSE PSYCHOS ARE TRYING TO KILL ME. I NEED TO GET OUT OF HERE. THEY WANT TO JUMP ME. THEY ARE A BUNCH OF JACKASSES!" PATIENT IS TRYING TO WALK OUT OF THE ER AND HE IS FEARFUL AND IMPULSIVE. PER STAFF MARGARITA AND SYEDA AT [facility], JOI HAS BEEN INCREASINGLY CONFUSED AND PARANOID FOR THE PAST WEEK. HE HAS BEEN WANDERING, CURSING AT STAFF AND REFUSING ALL CARE FROM STAFF. HE IS CONFUSED AT TIMES AND TRIES TO LEAVE THE FACILITY. HE IS CURRENTLY NOT SAFE FOR DISCHARGE AND STAFF ARE CONCERNED FOR HIS SAFETY AT FACILITY DUE TO HIS PARANOIA AND IMPAIRED JUDGEMENT AND IMPULSIVE BEHAVIOR. UPON FACE TO FACE ASSESSMENT, PATIENT IS UNCOOPERATIVE WITH CARE, DOES NOT ALLOW US TO TOUCH HIM. WHEN I REMOVED HIS IV LINE AND PUT A DRESSING ON, HE PULLED AWAY FROM ME RIGHT AWAY TRYING TO GET AWAY FROM ME AND STARTED BLEEDING THROUGH THE SITE. NEW DRESSING HAD TO BE APPLIED WITH THE HELP OF SECURITY. PATIENT IS ALERT X1, CONFUSED, VERBALLY AGGRESSIVE TOWARDS STAFF, AWOL AND FALL RISK. PATIENT IS ALREADY SCREAMING STATING THAT HE WANTS TO GET OUT OF HERE, THERE'S PEOPLE AFTER HIM. PATIENT REFUSED SKIN CHECK, REFUSED PHOTO TAKEN AND REFUSED PUTTING PUTTING HIS ARMBAND ON. PATIENT DENIES SI/HI, VAH AT THIS TIME. PATIENT IS PORTRAYING PARANOID BEHAVIOR THINKING PEOPLE ARE AFTER HIM. PATIENT REFUSED VITAL SIGNS, HEIGHT AND WEIGHT ASSESSMENT ALONG WITH MRSA SWAB OF THE NARES. PATIENT IS VERY FORGETFUL, HAS A UNKEMPT, DISHEVELED APPEARANCE, UNABLE TO SIT STILL, AND POOR CONCENTRATION. PATIENT HAS ALLERGIES TO SULFA, VALUABLES AND CONTRABANDS NOTED AND PUT AWAY IN LOCKER. HANDBOOK WAS GIVEN INCLUDING PATIENT'S RIGHTS AND GUIDE TO PRESCRIPTIONS. DR. TREADWELL & DR. ROMERO WAS CONTACTED AND INFORMED OF THE PATIENT'S ADMISSION WITH ADMITTING ORDERS. ATTEMPTED ON CONTACTING FAMILY MEMBER LISTED IN EMERGENCY CONTACTS AND PHONE NUMBER WAS NOT CORRECT. UNABLE TO CONTACT FAMILY. WILL MONITOR PATIENT Q 15 MINUTES FOR SAFETY AND BEHAVIOR PER GPS PROTOCOL AND CONTACT MD IF BEHAVIOR ESCALATES. Addendum: 10/05/18 at 1904 by HUY DISLA RN WILL ENDORSE THE REFUSAL OF ASSESSMENTS TO FOLLOWING SHIFT TO ATTEMPT AGAIN.
[2018-10-05] MEDS ORDERED: TRAMADOL HCL 50 MG TABLET PO PRN (18:30)
[2018-10-05] MEDS: APIXABAN 5 MG TABLET PO SCH (18:30)
[2018-10-05] MEDS ORDERED: ALBUTEROL FS 2.5 MG/0.5 ML VIAL.NEB NEB PRN (19:30)
[2018-10-05 20:00] VITALS: BP 130/89
[2018-10-05] MEDS: ATORVASTATIN 10 MG TABLET PO SCH (22:11)
[2018-10-06 07:45] LABS: CALCIUM, SERUM 9.9 mg/dL (8.5-10.1); POTASSIUM 3.3 mmol/L (3.5-5.1); TOTAL PROTEIN, SERUM 7.6 g/dL (6.4-8.2)
[2018-10-06 07:49] LABS: CHOLESTEROL 170 mg/dL (<200); HDL CHOLESTEROL 120 mg/dL (40-60); LDL 48 mg/dL (0-99); TRIGLYCERIDES 46 mg/dL (30-150)
[2018-10-06 08:00] VITALS: BP 130/90
[2018-10-06] MEDS: POTASSIUM CHLORIDE 20 MEQ TAB.PRT.SR PO SCH ×2 (09:11→16:32)
[2018-10-06] MEDS: FUROSEMIDE 40 MG TABLET PO SCH (09:11)
[2018-10-06] MEDS: VITAMIN B COMP W-C 1 TAB TABLET PO SCH (09:11)
[2018-10-06] MEDS: MULTIVIT W/MINERALS 1 TAB TABLET PO SCH (09:11)
[2018-10-06] MEDS: ASPIRIN 81 MG TAB.CHEW PO SCH (09:11)
[2018-10-06] MEDS: DILTIAZEM HCL CD 240 MG PO SCH (09:12)
[2018-10-06] MEDS: APIXABAN 5 MG TABLET PO SCH ×2 (09:13→16:34)
--- NOTE | 2018-10-06 10:52 | NUR ---
WOUND CARE CONSULT: PT PRESENTS WITH MULTIPLE AREAS OF RED/PURPLE/BROWN DISCOLORATION ON BODY INCLUDING LARGE RED AREA TO LEFT AND RT KNEE AND RT LATERAL LEG AND INTACT DEEP TISSUE INJURY TO MIDBACK, PRESENT ON ADMISSION. PLANTAR FOOT CALLUS NOTED BY NURSING STAFF, PRESENT ON ADMISSION. RECOMMEND DPM CONSULT. DR RANKIN AWARE OF CONSULT REQUEST. PT UNCOOPERATIVE AT TIMES AND WALKS AWAY DURING SKIN ASSESSMENT. PT NOTED TO HAVE VERY BONY KYPHOTIC BACK. RECOMMENDATIONS MADE FOR SKIN PROTECTION. DISCUSSED WITH NURSING STAFF. WILL SEE PRN. CHAUDHRY IN AGREEMENT WITH PLAN OF CARE.
[2018-10-06] MEDS ORDERED: Z GUARD REMEDY 2 OZ OINT TP PRN (11:00)
--- NOTE | 2018-10-06 12:03 | NUR ---
NATALIE contacted [facility] Address: [address] [facility], [place] [address] Jauregui, senior storage administrator for collateral information and discharge planning. Dr. Jauregui stated that pt has no family or responsible green party, pt has been living at [facility] for 10 years and has not had any visitors since he's been living there. Dr. Jauregui also informed SW that pt has a psychiatrist and psychologist and has refused to take psychotropic medication and does not see his psychologist. Per Dr. Jauregui this is pts first psychiatric hospitalization since living at [facility], she also mentioned that pt is combative and is wheelchair bound and often times pushes other residents out of his way. SW was also informed that pt has OCD and if able to will ride the elevators up and down all day if he's allowed to and gets upset when other people are in the elevator thus becoming aggressive, Dr. Jauregui mentioned that pt isolates himself and only comes out during meal times. Dr. Jauregui mentioned that pt has drastically declined mentally within the last week and has been having delusions and responding to internal stimuli.
[2018-10-06] MEDS: Z GUARD REMEDY 2 OZ OINT TP SCH (13:13)
[2018-10-06] MEDS: DIVALPROEX SODIUM 250 MG TABLET.DR PO SCH ×2 (13:13→22:31)
--- NOTE | 2018-10-06 14:13 | NUR ---
INITIAL DISCHARGE PLAN: Patient wishes to return to [facility] Address: [address] [facility], [place] [address] . NATALIE spoke with Dr. Jauregui, linux unix system administrator who stated pt is able to return once stable ans also stated facility will arrange for transportation back to the facility from hospital. NATALIE will help form a safe and proper discharge in collaboration with .
--- NOTE | 2018-10-06 14:30 | NUR ---
GROUP NOTE: SW prompted pt to attend group discussing the topic of support systems, but pt unable to participate in group.
[2018-10-06 16:00] VITALS: BP 125/68
[2018-10-06] MEDS: LORAZEPAM 0.5 MG TABLET PO PRN (16:32)
--- NOTE | 2018-10-06 16:35 | NUR ---
GPS/RN-NOTES NOTED PATIENT VERY ANXIOUS,UNABLE TO SIT STILL,WALKING UN ASSISTED AND NOT USING WALKER. REDIRECTED AND OFFERED ATIVAN AND AGREED. ATIVAN 1MG P.O GIVEN PRN ORDER. WILL CONT. MONITORING FOR SAFETY AND BEHAVIOR.
[2018-10-06] MEDS: MONTELUKAST SODIUM (10MG) 10 MG TABLET PO SCH (17:23)
--- NOTE | 2018-10-06 17:35 | NUR ---
GPS/RN-NOTES PATIENT IN THE DAY ROOM UP IN THE TATIANNA-CHAIR CALM,NO ACUTE DISTRESS NOTED.
[2018-10-06 20:21] VITALS: BP 129/63
[2018-10-06] MEDS: ATORVASTATIN 10 MG TABLET PO SCH (22:31)
[2018-10-06] MEDS: QUETIAPINE FUMARATE 25 MG TABLET PO SCH (22:31)
[2018-10-07 08:00] VITALS: BP 121/80
[2018-10-07] MEDS: DIVALPROEX SODIUM 250 MG TABLET.DR PO SCH ×2 (09:07→21:33)
[2018-10-07] MEDS: MULTIVIT W/MINERALS 1 TAB TABLET PO SCH (09:07)
[2018-10-07] MEDS: POTASSIUM CHLORIDE 20 MEQ TAB.PRT.SR PO SCH ×2 (09:07→16:21)
[2018-10-07] MEDS: ASPIRIN 81 MG TAB.CHEW PO SCH (09:07)
[2018-10-07] MEDS: DILTIAZEM HCL CD 240 MG PO SCH (09:07)
[2018-10-07] MEDS: Z GUARD REMEDY 2 OZ OINT TP SCH (09:08)
[2018-10-07] MEDS: CLOTRIMAZOLE 1% 15 GM TUBE TP SCH (09:08)
[2018-10-07] MEDS: VITAMIN B COMP W-C 1 TAB TABLET PO SCH (09:09)
[2018-10-07] MEDS: APIXABAN 5 MG TABLET PO SCH ×2 (09:10→16:21)
[2018-10-07] MEDS: FUROSEMIDE 40 MG TABLET PO SCH (09:13)
--- NOTE | 2018-10-07 14:17 | NUR ---
DR. ROMERO MADE AWARE THAT PT. IS POSITIVE FOR MRSA AND ORDERED BACTROBAN OINTMENT Q12HR FOR 7 DAYS.
[2018-10-07 16:18] VITALS: BP 132/83
[2018-10-07] MEDS: MONTELUKAST SODIUM (10MG) 10 MG TABLET PO SCH (16:21)
[2018-10-07 20:00] VITALS: BP 122/74
[2018-10-07] MEDS: QUETIAPINE FUMARATE 25 MG TABLET PO SCH (21:33)
[2018-10-07] MEDS: ATORVASTATIN 10 MG TABLET PO SCH (21:33)
[2018-10-07] MEDS: MUPIROCIN OINT 2% 22 GM TUBE SCH (21:33)
[2018-10-08 06:22] LABS: BASOPHILS % (AUTO) 0.5 % (0.0-2.0); EOSINOPHILS % (AUTO) 0.6 % (0.0-6.0); HEMATOCRIT 44 % (39-51); HEMOGLOBIN 14.6 g/dL (13.5-17.5); LYMPHOCYTES # (AUTO) 0.5 /CMM (0.8-4.8); LYMPHOCYTES % (AUTO) 7.8 % (20.0-44.0); MEAN CORPUSCULAR HGB CONC 33 g/dl (31.0-36.0); MEAN CORPUSCULAR VOLUME 95 fL (80-96); NEUTROPHILS # (AUTO) 5.2 /CMM (1.8-8.9); NEUTROPHILS % (AUTO) 76.1 % (43.0-81.0); PLATELET COUNT (AUTO) 250 /CMM (150-450); RED BLOOD CELL COUNT(AUTO) 4.58 MIL/uL (4.5-6.0); WHITE BLOOD COUNT (AUTO) 6.8 K/uL (4.3-11.0)
[2018-10-08 06:41] LABS: CALCIUM, SERUM 9.5 mg/dL (8.5-10.1); CREATININE 1.2 mg/dL (0.6-1.3); POTASSIUM 3.7 mmol/L (3.5-5.1)
[2018-10-08 07:09] LABS: LYMPHOCYTES % (MANUAL) 10 % (16-48); MONOCYTES % (MANUAL) 14 % (0-11.0); NEUTROPHILS % (MANUAL) 76 (42-76)
[2018-10-08 08:00] VITALS: BP 137/82
--- NOTE | 2018-10-08 09:00 | NUR ---
SEEN AND EVALUATED BY GRACY NAM WITH NEW ORDERS MADE TO CHANGE DIET TO PUREED, NOTED AND CARRIED OUT.
[2018-10-08] MEDS: POTASSIUM CHLORIDE 20 MEQ TAB.PRT.SR PO SCH ×2 (09:04→17:04)
[2018-10-08] MEDS: VITAMIN B COMP W-C 1 TAB TABLET PO SCH (09:05)
[2018-10-08] MEDS: FUROSEMIDE 40 MG TABLET PO SCH (09:05)
[2018-10-08] MEDS: DILTIAZEM HCL CD 240 MG PO SCH (09:05)
[2018-10-08] MEDS: ASPIRIN 81 MG TAB.CHEW PO SCH (09:05)
[2018-10-08] MEDS: APIXABAN 5 MG TABLET PO SCH ×2 (09:06→17:05)
[2018-10-08] MEDS: MULTIVIT W/MINERALS 1 TAB TABLET PO SCH (09:06)
[2018-10-08] MEDS: MUPIROCIN OINT 2% 22 GM TUBE SCH ×2 (09:06→21:28)
[2018-10-08] MEDS: DIVALPROEX SODIUM 250 MG TABLET.DR PO SCH ×2 (09:06→21:30)
[2018-10-08] MEDS: CLOTRIMAZOLE 1% 15 GM TUBE TP SCH (09:07)
[2018-10-08] MEDS: Z GUARD REMEDY 2 OZ OINT TP SCH (09:08)
[2018-10-08 16:08] VITALS: BP 107/62
[2018-10-08] MEDS: MONTELUKAST SODIUM (10MG) 10 MG TABLET PO SCH (17:04)
[2018-10-08 20:14] VITALS: BP 118/63
[2018-10-08] MEDS: QUETIAPINE FUMARATE 25 MG TABLET PO SCH (21:30)
[2018-10-08] MEDS: ATORVASTATIN 10 MG TABLET PO SCH (21:30)
[2018-10-08] MEDS: LORAZEPAM 0.5 MG TABLET PO PRN (23:50)
[2018-10-09 08:00] VITALS: BP 115/54
[2018-10-09] MEDS: VITAMIN B COMP W-C 1 TAB TABLET PO SCH (08:15)
[2018-10-09] MEDS: LORAZEPAM 0.5 MG TABLET PO PRN (08:15)
[2018-10-09] MEDS: DILTIAZEM HCL CD 240 MG PO SCH (08:16)
[2018-10-09] MEDS: APIXABAN 5 MG TABLET PO SCH ×2 (08:16→16:06)
[2018-10-09] MEDS: ASPIRIN 81 MG TAB.CHEW PO SCH (08:16)
[2018-10-09] MEDS: DIVALPROEX SODIUM 250 MG TABLET.DR PO SCH ×2 (08:16→21:00)
[2018-10-09] MEDS: POTASSIUM CHLORIDE 20 MEQ TAB.PRT.SR PO SCH ×2 (08:16→16:07)
[2018-10-09] MEDS: FUROSEMIDE 40 MG TABLET PO SCH (08:16)
[2018-10-09] MEDS: MULTIVIT W/MINERALS 1 TAB TABLET PO SCH (08:16)
[2018-10-09] MEDS: MUPIROCIN OINT 2% 22 GM TUBE SCH ×2 (09:07→21:09)
[2018-10-09] MEDS: CLOTRIMAZOLE 1% 15 GM TUBE TP SCH (09:08)
[2018-10-09] MEDS: Z GUARD REMEDY 2 OZ OINT TP SCH (09:08)
[2018-10-09] MEDS: risperiDONE 1 MG TABLET PO SCH ×2 (10:00→16:07)
--- NOTE | 2018-10-09 10:30 | NUR ---
GPS RN NOTES PATIENT REFUSED TO HAVE RISPERDAL. RISKS AND BENEFITS EXPLAINED BUT TO NO AVAIL, PATIENT STRONGLY REFUSED. WILL CONTINUE TO MONITOR
--- NOTE | 2018-10-09 15:58 | NUR ---
Group Note: Pt attended group therapy session on 10/09/18 at 2:30pm discussing personal strengths and coping skills but was not engaged and did not participate due to her cognitive impairment.
[2018-10-09 16:00] VITALS: BP 138/92
[2018-10-09] MEDS: MONTELUKAST SODIUM (10MG) 10 MG TABLET PO SCH (17:11)
[2018-10-09 20:00] VITALS: BP 118/71
[2018-10-09] MEDS: ATORVASTATIN 10 MG TABLET PO SCH (21:00)
[2018-10-09] MEDS: ZOLPIDEM TARTRATE 5 MG TABLET PO PRN (22:59)
--- NOTE | 2018-10-09 22:59 | NUR ---
RN GPS NOTES UPON ASSESSMENT NOTED PATIENT AWAKE NOT SLEEPING , APPEARS IRRITABLE, REMOVING GOWN. ATTEMPTING TO GET UP UNASSISTED , PRN AMBIEN GIVEN WILL CONTINUE TO MONITOR FOR EFFECTIVENESS.
[2018-10-10 07:20] LABS: BASOPHILS # (AUTO) 0.1 /CMM (0.0-0.2); BASOPHILS % (AUTO) 1.1 % (0.0-2.0); EOSINOPHILS % (AUTO) 1.3 % (0.0-6.0); HEMATOCRIT 41 % (39-51); HEMOGLOBIN 13.9 g/dL (13.5-17.5); LYMPHOCYTES # (AUTO) 0.6 /CMM (0.8-4.8); LYMPHOCYTES % (AUTO) 10.3 % (20.0-44.0); MEAN CORPUSCULAR HGB CONC 34 g/dl (31.0-36.0); MEAN CORPUSCULAR VOLUME 95 fL (80-96); MONOCYTES # (AUTO) 0.9 /CMM (0.1-1.30); NEUTROPHILS % (AUTO) 71.3 % (43.0-81.0); PLATELET COUNT (AUTO) 282 /CMM (150-450); RED BLOOD CELL COUNT(AUTO) 4.33 MIL/uL (4.5-6.0); WHITE BLOOD COUNT (AUTO) 5.7 K/uL (4.3-11.0)
[2018-10-10 07:30] LABS: ALBUMIN 3.1 g/dL (3.4-5.0); BILIRUBIN,DIRECT 0.2 mg/dL (0.0-0.2); BILIRUBIN,TOTAL 1.2 mg/dL (0.2-1.0); CALCIUM, SERUM 9.2 mg/dL (8.5-10.1); CREATININE 1.9 mg/dL (0.6-1.3); POTASSIUM 4.6 mmol/L (3.5-5.1); TOTAL PROTEIN, SERUM 6.9 g/dL (6.4-8.2)
[2018-10-10] MEDS: FUROSEMIDE 40 MG TABLET PO SCH ×2 (07:56→08:36)
[2018-10-10] MEDS: ASPIRIN 81 MG TAB.CHEW PO SCH ×2 (07:56→08:35)
[2018-10-10] MEDS: POTASSIUM CHLORIDE 20 MEQ TAB.PRT.SR PO SCH ×2 (07:56→08:36)
[2018-10-10] MEDS: risperiDONE 1 MG TABLET PO SCH ×4 (07:56→17:09)
[2018-10-10] MEDS: APIXABAN 5 MG TABLET PO SCH ×3 (07:56→17:09)
[2018-10-10] MEDS: DIVALPROEX SODIUM 250 MG TABLET.DR PO SCH ×4 (07:56→21:13)
[2018-10-10 08:00] VITALS: BP 106/72
[2018-10-10] MEDS: MUPIROCIN OINT 2% 22 GM TUBE SCH ×2 (08:04→21:14)
[2018-10-10] MEDS: DILTIAZEM HCL CD 240 MG PO SCH (08:05)
[2018-10-10] MEDS: VITAMIN B COMP W-C 1 TAB TABLET PO SCH (08:05)
[2018-10-10] MEDS: MULTIVIT W/MINERALS 1 TAB TABLET PO SCH (08:05)
[2018-10-10] MEDS: CLOTRIMAZOLE 1% 15 GM TUBE TP SCH (08:06)
[2018-10-10] MEDS: Z GUARD REMEDY 2 OZ OINT TP SCH (08:08)
--- NOTE | 2018-10-10 09:01 | NUR ---
WOUND CARE CONSULT: PT PRESENTS WITH MULTIPLE SKIN ISSUES INCLUDING RASH TO ABDOMINAL/GROIN FOLDS, MULTIPLE AREAS OF BRUISING AND RT LATERAL LEG OPEN WOUND, RT KNEE OPEN ABRASION, MIDBACK OPEN AREA. RT LATERAL LEG, MIDBACK DEEP TISSUE INJURY AND RT KNEE NOTED TO BE PRESENT ON ADMISSION. MIDBACK DTI IS NOW IN EVOLUTION. PT IS VERY THIN AND BONY WITH KYPHOSIS NOTED TO BE SEVERE TO HIS BACK. PT IS UNCOOPERATIVE AT TIMES AND OFTEN TRYING TO WALK WITH UNSTEADY GAIT. PT WILL BENEFIT FROM CLOSE SUPERVISION AND POSSIBLY P.T. CONTINUE TO KEEP SKIN CLEAN AND DRY AND ASSIST PT IN REPOSITIONING EVERY 2 HOURS PT CONDITION PERMITS. ALL SKIN PROTECTION AND WOUND CARE RECOMMENDATIONS DISCUSSED WITH NURSING STAFF. WILL SEE PRN. CHAUDHRY IN AGREEMENT WITH PLAN OF CARE. DIETARY CONSULT IN PLACE. Addendum: 10/10/18 at 0906 by ADRIENNE APTHAK WNDNU Amended: Links added.
--- NOTE | 2018-10-10 15:30 | NUR ---
ALAN CALLED REGARDING ELEVATED POTASSIUM AND MED DC'D.
--- NOTE | 2018-10-10 15:36 | NUR ---
Group Note: Pt attended group therapy session on 10/10/18 at 2:00pm discussing the topic of goal setting for while they are in the hospital and after discharge but was not engaged and did not participate due to cognitive impairment.
[2018-10-10 16:00] VITALS: BP 124/73
[2018-10-10] MEDS: MONTELUKAST SODIUM (10MG) 10 MG TABLET PO SCH (17:09)
--- NOTE | 2018-10-10 18:00 | NUR ---
REFUSED MEDS IN AM THEN DR. TREADWELL SPOKE WITH PT AND TOOK PSYCH MEDS AFTER THAT.
[2018-10-10 20:25] VITALS: BP 103/64
[2018-10-10] MEDS: ATORVASTATIN 10 MG TABLET PO SCH (21:13)
[2018-10-10] MEDS: LORAZEPAM 0.5 MG TABLET PO PRN (22:26)
--- NOTE | 2018-10-10 22:39 | NUR ---
GPS RN NOTES: PT.NOTED VERY ANXIOUS ,RESTLESS, UNCOOPERTIVE,GETTING OUT OF THE BED, NOT FOLLOWING ANY REDIRECTIONS, VERBALLY ABUSIVE WITH STAFF, ATIVAN 1 MG PO PRN GIVEN ,WILL CONTINUE TO MONITOR.
[2018-10-11 08:00] VITALS: BP 133/72
[2018-10-11] MEDS: risperiDONE 1 MG TABLET PO SCH ×2 (09:00→21:38)
[2018-10-11] MEDS: MULTIVIT W/MINERALS 1 TAB TABLET PO SCH (09:00)
[2018-10-11] MEDS: MUPIROCIN OINT 2% 22 GM TUBE SCH ×2 (10:39→21:01)
[2018-10-11] MEDS: CLOTRIMAZOLE 1% 15 GM TUBE TP SCH (10:40)
[2018-10-11] MEDS: DILTIAZEM HCL CD 240 MG PO SCH (12:28)
[2018-10-11] MEDS: APIXABAN 5 MG TABLET PO SCH ×2 (12:28→17:48)
[2018-10-11] MEDS: ASPIRIN 81 MG TAB.CHEW PO SCH (12:29)
[2018-10-11] MEDS: VITAMIN B COMP W-C 1 TAB TABLET PO SCH (12:29)
[2018-10-11] MEDS: DIVALPROEX SODIUM 250 MG TABLET.DR PO SCH ×2 (12:29→21:01)
--- NOTE | 2018-10-11 13:35 | NUR ---
Group Note: Pt attended group therapy session on 10/11/18 at 12:30pm discussing stress management techniques for while they are in the hospital and after discharge but was not engaged and did not participate due to cognitive impairment.
[2018-10-11] MEDS: Z GUARD REMEDY 2 OZ OINT TP SCH (15:53)
[2018-10-11 17:00] VITALS: BP 127/89
[2018-10-11] MEDS: FUROSEMIDE 40 MG TABLET PO SCH (17:47)
[2018-10-11] MEDS: MONTELUKAST SODIUM (10MG) 10 MG TABLET PO SCH (17:47)
--- NOTE | 2018-10-11 18:00 | NUR ---
Debbie PATEL MANAGER [facility]OS[facility] IN TO SEE PT. RN REQUESTED BMP PT. ON LASIX WITH NO POTASSIUM.SILKE. YAIR TO FOLLOW UP TOMORROW.
[2018-10-11 20:00] VITALS: BP 148/99
[2018-10-11] MEDS: ATORVASTATIN 10 MG TABLET PO SCH (21:37)
[2018-10-12] MEDS: ZOLPIDEM TARTRATE 5 MG TABLET PO PRN (00:06)
--- NOTE | 2018-10-12 07:28 | NUR ---
GPS RN NOTES: REPORT GIVEN DAY NURSE ARTURO PT. ON LASIX, WITH NO POTASSIUM NOTED ,AND PLEASE FOLLOW UP WITH MD .WILL CONTINUITY WITH CARE .
[2018-10-12 07:55] LABS: BASOPHILS # (AUTO) 0.1 /CMM (0.0-0.2); BASOPHILS % (AUTO) 0.8 % (0.0-2.0); EOSINOPHILS % (AUTO) 1.8 % (0.0-6.0); HEMATOCRIT 40 % (39-51); HEMOGLOBIN 13.4 g/dL (13.5-17.5); LYMPHOCYTES # (AUTO) 0.6 /CMM (0.8-4.8); LYMPHOCYTES % (AUTO) 10.1 % (20.0-44.0); MEAN CORPUSCULAR HGB CONC 34 g/dl (31.0-36.0); MEAN CORPUSCULAR VOLUME 95 fL (80-96); MONOCYTES % (AUTO) 16.4 % (2.0-12.0); NEUTROPHILS # (AUTO) 4.5 /CMM (1.8-8.9); NEUTROPHILS % (AUTO) 70.9 % (43.0-81.0); PLATELET COUNT (AUTO) 281 /CMM (150-450); RED BLOOD CELL COUNT(AUTO) 4.23 MIL/uL (4.5-6.0); WHITE BLOOD COUNT (AUTO) 6.3 K/uL (4.3-11.0)
[2018-10-12 08:00] VITALS: BP 124/81
[2018-10-12 08:28] LABS: ALBUMIN 3.3 g/dL (3.4-5.0); BILIRUBIN,TOTAL 1.3 mg/dL (0.2-1.0); CALCIUM, SERUM 9.5 mg/dL (8.5-10.1); CREATININE 1.9 mg/dL (0.6-1.3); MAGNESIUM 2.9 mg/dL (1.8-2.4); PHOSPHORUS 4.6 mg/dL (2.5-4.9); POTASSIUM 4.1 mmol/L (3.5-5.1); TOTAL PROTEIN, SERUM 7.1 g/dL (6.4-8.2)
[2018-10-12] MEDS: VITAMIN B COMP W-C 1 TAB TABLET PO SCH (08:28)
[2018-10-12] MEDS: DILTIAZEM HCL CD 240 MG PO SCH (08:28)
[2018-10-12] MEDS: MULTIVIT W/MINERALS 1 TAB TABLET PO SCH (08:28)
[2018-10-12] MEDS: ASPIRIN 81 MG TAB.CHEW PO SCH (08:28)
[2018-10-12] MEDS: DIVALPROEX SODIUM 250 MG TABLET.DR PO SCH ×2 (08:28→21:23)
[2018-10-12] MEDS: CLOTRIMAZOLE 1% 15 GM TUBE TP SCH (08:30)
[2018-10-12] MEDS: Z GUARD REMEDY 2 OZ OINT TP SCH (08:30)
[2018-10-12] MEDS: APIXABAN 5 MG TABLET PO SCH ×2 (08:30→17:51)
[2018-10-12] MEDS: MUPIROCIN OINT 2% 22 GM TUBE SCH ×2 (08:30→21:23)
[2018-10-12 16:00] VITALS: BP 112/64
[2018-10-12] MEDS: MONTELUKAST SODIUM (10MG) 10 MG TABLET PO SCH (17:51)
--- NOTE | 2018-10-12 18:10 | NUR ---
GPS NOTE DID BLADDER SCAN AND NOTED URINE OF >[address] KEYLA PATEL FOR IN AND OUT ORDER. WAITING FOR CALL BACK.
--- NOTE | 2018-10-12 18:45 | NUR ---
GPS NOTE PAGED MD AGAIN. WAITING FOR CALL BACK.
--- NOTE | 2018-10-12 19:21 | NUR ---
GPS NOTE RECEIVED ORDERS FROM DR KEYLA PATEL. NOTED AND CARRIED OUT. IN AND OUT DONE AND 1100 ML OF URINE IS DRAINED. ENDORSED TO UP COLOR MAKER FORMULATOR.
[2018-10-12 20:33] VITALS: BP 135/76
[2018-10-12] MEDS: ATORVASTATIN 10 MG TABLET PO SCH (21:23)
[2018-10-12] MEDS: risperiDONE 1 MG TABLET PO SCH (21:23)
[2018-10-13] MEDS: ZOLPIDEM TARTRATE 5 MG TABLET PO PRN ×2 (00:01→21:49)
--- NOTE | 2018-10-13 06:53 | NUR ---
GPS/APPRENTICE COOK NOTES: BLADDER SCAN DONE. NOTED 989 URINE. BLOOD PRESSURE CHECKED. 104/69. IN AND OUT CATH DONE ORDERED. 900 URINE OUTPUT. BLOOD PRESSURE RECHECKED AND NOTED 112/73. WILL ENDORSE TO NEXT SHIFT.
[2018-10-13 07:07] LABS: BASOPHILS % (AUTO) 0.5 % (0.0-2.0); EOSINOPHILS % (AUTO) 3.7 % (0.0-6.0); HEMATOCRIT 37 % (39-51); HEMOGLOBIN 12.4 g/dL (13.5-17.5); MEAN CORPUSCULAR HGB CONC 34 g/dl (31.0-36.0); MEAN CORPUSCULAR VOLUME 94 fL (80-96); MONOCYTES # (AUTO) 1.1 /CMM (0.1-1.30); MONOCYTES % (AUTO) 17.8 % (2.0-12.0); NEUTROPHILS # (AUTO) 3.7 /CMM (1.8-8.9); PLATELET COUNT (AUTO) 289 /CMM (150-450); RED BLOOD CELL COUNT(AUTO) 3.93 MIL/uL (4.5-6.0); WHITE BLOOD COUNT (AUTO) 6.1 K/uL (4.3-11.0)
[2018-10-13 07:24] LABS: ALBUMIN 2.9 g/dL (3.4-5.0); BILIRUBIN,TOTAL 1.3 mg/dL (0.2-1.0); CREATININE 1.4 mg/dL (0.6-1.3); MAGNESIUM 2.6 mg/dL (1.8-2.4); PHOSPHORUS 3.8 mg/dL (2.5-4.9); POTASSIUM 3.8 mmol/L (3.5-5.1); TOTAL PROTEIN, SERUM 6.6 g/dL (6.4-8.2)
[2018-10-13 08:00] VITALS: BP 102/59
--- NOTE | 2018-10-13 08:00 | NUR ---
PT. IN THE BED SLEEPING BUT AROUSABLE. WATCHING TV. NO DISTRESS OR AGITATION NOTED. CONFUSED. REALITY ORIENTATION DONE. NO C/O PAIN OR DISCOMFORT. SAFETY ENVIRONMENT OBSERVED AT ALL TIMES. ON CONTACT ISOLATION PRECAUTIONS FOR MRSA NARES.WILL CONTINUE TO MONITOR Q 15 MIN FOR SAFETY AND BEHAVIOR.
[2018-10-13] MEDS: DILTIAZEM HCL CD 240 MG PO SCH (09:00)
[2018-10-13] MEDS: MULTIVIT W/MINERALS 1 TAB TABLET PO SCH (09:03)
[2018-10-13] MEDS: VITAMIN B COMP W-C 1 TAB TABLET PO SCH (09:03)
[2018-10-13] MEDS: ASPIRIN 81 MG TAB.CHEW PO SCH (09:03)
[2018-10-13] MEDS: Z GUARD REMEDY 2 OZ OINT TP SCH (09:04)
[2018-10-13] MEDS: DIVALPROEX SODIUM 250 MG TABLET.DR PO SCH ×2 (09:04→21:45)
[2018-10-13 09:26] LABS: EOSINOPHILS % (MANUAL) 4 % (0-4); LYMPHOCYTES % (MANUAL) 10 % (16-48); MONOCYTES % (MANUAL) 18 % (0-11.0); NEUTROPHILS % (MANUAL) 68 (42-76)
[2018-10-13] MEDS: CLOTRIMAZOLE 1% 15 GM TUBE TP SCH (09:40)
[2018-10-13] MEDS: MUPIROCIN OINT 2% 22 GM TUBE SCH (09:41)
[2018-10-13] MEDS: APIXABAN 5 MG TABLET PO SCH ×2 (09:41→18:27)
--- NOTE | 2018-10-13 13:30 | NUR ---
PT HASN'T VOIDED SINCE AM BLADDER SCAN DONE WITH 907 ML URINARY RETENTION NOTED. NOTIFIED DR PATEL WITH ORDERS TO INSERT BERNARDO CATHETER AND CARRIED OUT.
--- NOTE | 2018-10-13 14:30 | NUR ---
INSERTED BERNARDO CATHETER AND DRAINED 1300 ML YELLOW SIVLESTRE URINE.PT TOLERATED WELL.WOUND TX DONE TO BLE AND BACK WOUNDS.TURNED EVERY TWO HRS.PT LOVES TO TURN ON HIS LT SIDE.PROVIDED 1:1 SITTER TO CLOSELY MONITOR PT'S SAfety.
[2018-10-13 16:00] VITALS: BP 127/75
[2018-10-13] MEDS: MONTELUKAST SODIUM (10MG) 10 MG TABLET PO SCH (18:26)
[2018-10-13 20:00] VITALS: BP 136/79
[2018-10-13] MEDS: TAMSULOSIN 0.4 MG CAP.SR.24H PO SCH (21:46)
[2018-10-13] MEDS: ATORVASTATIN 10 MG TABLET PO SCH (21:46)
[2018-10-13] MEDS: risperiDONE 1 MG TABLET PO SCH (21:48)
[2018-10-14] MEDS: MUPIROCIN OINT 2% 22 GM TUBE SCH ×3 (00:20→23:06)
[2018-10-14 07:27] LABS: BASOPHILS # (AUTO) 0.1 /CMM (0.0-0.2); BASOPHILS % (AUTO) 0.9 % (0.0-2.0); HEMATOCRIT 36 % (39-51); HEMOGLOBIN 12.3 g/dL (13.5-17.5); LYMPHOCYTES # (AUTO) 0.4 /CMM (0.8-4.8); LYMPHOCYTES % (AUTO) 6.5 % (20.0-44.0); MEAN CORPUSCULAR HGB CONC 34 g/dl (31.0-36.0); MEAN CORPUSCULAR VOLUME 93 fL (80-96); MONOCYTES # (AUTO) 0.9 /CMM (0.1-1.30); MONOCYTES % (AUTO) 13.8 % (2.0-12.0); NEUTROPHILS # (AUTO) 5.2 /CMM (1.8-8.9); NEUTROPHILS % (AUTO) 77.8 % (43.0-81.0); PLATELET COUNT (AUTO) 295 /CMM (150-450); RED BLOOD CELL COUNT(AUTO) 3.89 MIL/uL (4.5-6.0); WHITE BLOOD COUNT (AUTO) 6.7 K/uL (4.3-11.0)
[2018-10-14 07:42] LABS: CALCIUM, SERUM 8.7 mg/dL (8.5-10.1); CREATININE 0.8 mg/dL (0.6-1.3); PHOSPHORUS 2.7 mg/dL (2.5-4.9); POTASSIUM 3.1 mmol/L (3.5-5.1)
[2018-10-14 08:00] VITALS: BP 142/75
[2018-10-14] MEDS: DIVALPROEX SODIUM 250 MG TABLET.DR PO SCH ×2 (08:43→23:03)
[2018-10-14] MEDS: MULTIVIT W/MINERALS 1 TAB TABLET PO SCH (08:43)
[2018-10-14] MEDS: VITAMIN B COMP W-C 1 TAB TABLET PO SCH (08:43)
[2018-10-14] MEDS: APIXABAN 5 MG TABLET PO SCH ×2 (08:43→16:51)
[2018-10-14] MEDS: ASPIRIN 81 MG TAB.CHEW PO SCH (08:43)
[2018-10-14] MEDS: FINASTERIDE (5 MG) 5 MG TABLET PO SCH (08:43)
[2018-10-14] MEDS: DILTIAZEM HCL CD 240 MG PO SCH (08:44)
[2018-10-14] MEDS: Z GUARD REMEDY 2 OZ OINT TP SCH (08:47)
[2018-10-14] MEDS ORDERED: POTASSIUM CHLORIDE 20 MEQ TAB.PRT.SR PO ONE (09:30)
[2018-10-14] MEDS: CLOTRIMAZOLE 1% 15 GM TUBE TP SCH (11:03)
--- NOTE | 2018-10-14 12:22 | NUR ---
GPS/RN-NOTES ANSELMO PATEL SEEN THE PATIENT AND AWARE OF PATIENT TEA COLORED URINE AND LABS RESULT.
[2018-10-14 13:39] LABS: CREATININE, URINE 82.5 MG/DL (30.0-125.0)
[2018-10-14 13:44] LABS: APPEARANCE,URINE CLOUDY (CLEAR)
[2018-10-14 13:47] LABS: PH,URINE >9.0 (5.0-8.0)
[2018-10-14 13:48] LABS: BILIRUBIN,URINE 2+ (NEGATIVE); BLOOD, URINE 3+ Ery/uL (NEGATIVE); KETONES,URINE TRACE (NEGATIVE); PROTEIN,URINE 3+ mg/dl (NEGATIVE); UGLUCOSE TRACE mg/dL (NEGATIVE)
[2018-10-14 13:49] LABS: LEUKOCYTE ESTERASE ,URINE 3+ (NEGATIVE); NITRITE, URINE POSITIVE (NEGATIVE)
[2018-10-14 13:50] LABS: COLOR,URINE AMBER (YELLOW)
[2018-10-14 13:54] LABS: RBC,URINE TOO NUMEROUS TO COUN /HPF (0-2)
[2018-10-14 13:56] LABS: BACTERIA,URINE Many /HPF (None Seen)
[2018-10-14 13:57] LABS: CALCIUM OXALATE CRYSTALS,UR Few /HPF (None Seen); SQUAMOUS EPITHELIAL CELL,UR Few /HPF (None Seen)
[2018-10-14 14:03] LABS: URINE TOTAL PROTEIN 811.5 mg/dL (0-11.9)
--- NOTE | 2018-10-14 15:01 | NUR ---
GPSR/N-NOTES ANSELMO PATEL MADE AWARE OF PT. URINE RESULTS. Addendum: 10/14/18 at 1506 by MONICA BARRIENTOS RN IN ADDITION ON MY ABOVE NOTES RECEIVED T.O ORDER FROM ANSELMO PATEL OF MACROBID 100MG P.O BID X10 DAYS. NOTED AND CARRIED OUT.
[2018-10-14 15:45] LABS: EOSINOPHIL,URINE None Seen
[2018-10-14 16:00] VITALS: BP 108/62
[2018-10-14] MEDS: NITROFURANTOIN/NITROFURAN MAC 100 MG CAPSULE PO SCH (16:51)
[2018-10-14] MEDS: MONTELUKAST SODIUM (10MG) 10 MG TABLET PO SCH (17:06)
[2018-10-14 19:54] VITALS: BP 137/83
[2018-10-14 20:28] LABS: OCCULT BLOOD STOOL POSITIVE (NEGATIVE)
[2018-10-14] MEDS: risperiDONE 1 MG TABLET PO SCH (23:04)
[2018-10-14] MEDS: ZOLPIDEM TARTRATE 5 MG TABLET PO PRN (23:04)
[2018-10-14] MEDS: ATORVASTATIN 10 MG TABLET PO SCH (23:04)
[2018-10-14] MEDS: TAMSULOSIN 0.4 MG CAP.SR.24H PO SCH (23:04)
[2018-10-15 08:00] VITALS: BP 120/61
[2018-10-15] MEDS: MULTIVIT W/MINERALS 1 TAB TABLET PO SCH (09:49)
[2018-10-15] MEDS: APIXABAN 5 MG TABLET PO SCH ×2 (09:49→17:25)
[2018-10-15] MEDS: VITAMIN B COMP W-C 1 TAB TABLET PO SCH (09:49)
[2018-10-15] MEDS: FINASTERIDE (5 MG) 5 MG TABLET PO SCH (09:49)
[2018-10-15] MEDS: NITROFURANTOIN/NITROFURAN MAC 100 MG CAPSULE PO SCH ×2 (09:49→17:23)
[2018-10-15] MEDS: ASPIRIN 81 MG TAB.CHEW PO SCH (09:49)
[2018-10-15] MEDS: DIVALPROEX SODIUM 250 MG TABLET.DR PO SCH ×2 (09:50→21:09)
[2018-10-15] MEDS: DILTIAZEM HCL CD 240 MG PO SCH (09:50)
[2018-10-15] MEDS: Z GUARD REMEDY 2 OZ OINT TP SCH (09:51)
[2018-10-15] MEDS: CLOTRIMAZOLE 1% 15 GM TUBE TP SCH (09:51)
[2018-10-15] MEDS: MUPIROCIN OINT 2% 22 GM TUBE SCH ×2 (09:52→21:08)
[2018-10-15 16:00] VITALS: BP 116/56
[2018-10-15] MEDS: ENSURE ENLIVE 237 ML LIQUID (VANILLA) PO SCH (17:24)
[2018-10-15] MEDS: MONTELUKAST SODIUM (10MG) 10 MG TABLET PO SCH (18:18)
[2018-10-15 20:32] VITALS: BP 116/66
[2018-10-15] MEDS: TAMSULOSIN 0.4 MG CAP.SR.24H PO SCH (21:22)
[2018-10-15] MEDS: risperiDONE 1 MG TABLET PO SCH (21:22)
[2018-10-15] MEDS: ATORVASTATIN 10 MG TABLET PO SCH (21:22)
[2018-10-15] MEDS: ZOLPIDEM TARTRATE 5 MG TABLET PO PRN (21:43)
--- NOTE | 2018-10-16 06:18 | NUR ---
BERNARDO CATHETER, EMPTIED 350 ML BLOODY OUTPUT, YAIR WHARTON MADE AWARE. DR. Jania RUBIN WAS PAGED, AWAITING CALL BACK.
--- NOTE | 2018-10-16 07:45 | NUR ---
RN-CO: NOTIFIED DR PATEL REGARDING PATIENT'S BLOODY URINE. MD WILL COME AND SEE PATIENT.V/S: 107/69,98.6,20,97
[2018-10-16 08:00] VITALS: BP 107/69
--- NOTE | 2018-10-16 08:10 | NUR ---
GPS/RN-NOTES ANSELMO PATEL MADE AWARE OF PATIENT BLOODY URINE OUT. NNO AT THIS TIME. STILL AWAITING FOR THE LAB RESULTS TODAY.
[2018-10-16 08:13] LABS: BASOPHILS % (AUTO) 0.6 % (0.0-2.0); EOSINOPHILS % (AUTO) 2.2 % (0.0-6.0); HEMATOCRIT 32 % (39-51); HEMOGLOBIN 11.2 g/dL (13.5-17.5); LYMPHOCYTES # (AUTO) 0.9 /CMM (0.8-4.8); LYMPHOCYTES % (AUTO) 14.9 % (20.0-44.0); MEAN CORPUSCULAR HGB CONC 35 g/dl (31.0-36.0); MEAN CORPUSCULAR VOLUME 93 fL (80-96); MONOCYTES # (AUTO) 1.1 /CMM (0.1-1.30); MONOCYTES % (AUTO) 18.3 % (2.0-12.0); NEUTROPHILS # (AUTO) 3.8 /CMM (1.8-8.9); PLATELET COUNT (AUTO) 300 /CMM (150-450); RED BLOOD CELL COUNT(AUTO) 3.45 MIL/uL (4.5-6.0); WHITE BLOOD COUNT (AUTO) 5.9 K/uL (4.3-11.0)
--- NOTE | 2018-10-16 08:54 | NUR ---
RN-CO: Patient had no incident, of aggression last night and today. More redirectable, notified Dr Dietz and ordered to discontinue 1:1 sitter. Addendum: 10/16/18 at 0909 by MEHREEN DENNIS RN RN-CO: ERROR ON CHARTING.
[2018-10-16 09:00] VITALS: BP 107/69
[2018-10-16] MEDS: MULTIVIT W/MINERALS 1 TAB TABLET PO SCH (09:00)
[2018-10-16] MEDS: FINASTERIDE (5 MG) 5 MG TABLET PO SCH (09:00)
[2018-10-16] MEDS: ASPIRIN 81 MG TAB.CHEW PO SCH (09:00)
[2018-10-16] MEDS: ENSURE ENLIVE 237 ML LIQUID (VANILLA) PO SCH (09:00)
[2018-10-16] MEDS: NITROFURANTOIN/NITROFURAN MAC 100 MG CAPSULE PO SCH (09:00)
[2018-10-16] MEDS: DIVALPROEX SODIUM 250 MG TABLET.DR PO SCH (09:00)
[2018-10-16] MEDS: VITAMIN B COMP W-C 1 TAB TABLET PO SCH (09:00)
[2018-10-16] MEDS: DILTIAZEM HCL CD 240 MG PO SCH (09:00)
[2018-10-16] MEDS: APIXABAN 5 MG TABLET PO SCH (09:00)
--- NOTE | 2018-10-16 09:05 | NUR ---
DISCHARGE NOTE: Pt being discharged to the Med/Surg Floor due to bloody urine and severe UTI.
--- NOTE | 2018-10-16 09:09 | NUR ---
RN-CO: DR KEYLA PATEL SEEN AND EXAMINED THE PATIENT WITH ORDER TO DISCHARGE HIM TO MEDICAL FLOOR. DR TREADWELL MADE AWARE AND WILL SEE THE PATIENT SOON.
[2018-10-16] MEDS: MUPIROCIN OINT 2% 22 GM TUBE SCH (09:11)
[2018-10-16 09:13] LABS: CALCIUM, SERUM 8.3 mg/dL (8.5-10.1); CREATININE 1.2 mg/dL (0.6-1.3); POTASSIUM 3.8 mmol/L (3.5-5.1)
[2018-10-16] MEDS: Z GUARD REMEDY 2 OZ OINT TP SCH (09:14)
--- NOTE | 2018-10-16 09:14 | NUR ---
NATALIE contacted [facility] Address: [address] [place] [address] Jauregui, zoning administrator and informed her pt will be transferring to the medical floor. Dr. Jauregui agreed with transfer.
[2018-10-16] MEDS: CLOTRIMAZOLE 1% 15 GM TUBE TP SCH (09:15)
--- NOTE | 2018-10-16 09:17 | NUR ---
GPS/RN-NOTES ANSELMO PATEL SEEN THE PATIENT WITH VERBAL ORDER TO HOLD ELIQUIS AND TO DISCHARGE TO [facility]. PATIENT REFUSED ALL OTHER MEDICATIONS AND REFUSED BREAKFAST. DR. TREADWELL IN THE UNIT AND AWARE OF PATIENT'S CONDITION AND THE TRANSFER ORDERED BY ANSELMO PATEL.
--- NOTE | 2018-10-16 10:25 | NUR ---
RN-CO: REPORT GIVEN TO SAJI MAZARIEGOS.
--- NOTE | 2018-10-16 11:06 | NUR ---
GPS/RN-NOTES TRANSFER PATIENT TO [address] [facility] UN[address] VIA WHEELCHAIR WITH ALL BELONGINGS.. PATIENT AWAKE,ALERT X1. REPORT WAS GIVEN TO SAJI ( [facility] PAPER REEL OPERATOR). NO FAMILY TO NOTIFY ON THE DISCHARGE.
[2018-10-16] MEDS ORDERED: RISP1TAB7 PO (13:14)
[2018-10-16] MEDS ORDERED: TAMS-12 PO (13:14)
[2018-10-16] MEDS ORDERED: MAGN400O6 PO (13:14)
[2018-10-16] MEDS ORDERED: MAG30ORA PO (13:14)
[2018-10-16] MEDS ORDERED: [UNRECOGNIZED DRUG - OTHER] (13:14)
[2018-10-16] MEDS ORDERED: DIVA-78 PO (13:14)
[2018-10-16] MEDS ORDERED: TYL2T PO (13:14)
[2018-10-16] MEDS ORDERED: ZOLP5TAB8 PO (13:14)
[2018-10-16] MEDS ORDERED: ALLA266C2 TP (13:14)
[2018-10-16] MEDS ORDERED: CLOT15CR63 TP (13:14)
[2018-10-16] MEDS ORDERED: NITR100C6 PO (13:14)
[2018-10-16] MEDS ORDERED: LORA1TAB PO (13:14)
== END 2018-10-16 11:02 | DRG 885 ==
LOC: ER 11:58 → GPS 16:13
PROVIDERS: ADMIT Psychiatry & Neurology Psychiatry; ATTEND Nurse Practitioner Acute Care
DX: F29 Unspecified psychosis not due to a substance or known physiological condition (principal); G93.41 Metabolic encephalopathy; N17.0 Acute kidney failure with tubular necrosis; F41.9 Anxiety disorder, unspecified; I10 Essential (primary) hypertension; J45.909 Unspecified asthma, uncomplicated; E83.52 Hypercalcemia; L30.9 Dermatitis, unspecified; Z88.2 Allergy status to sulfonamides; Z79.82 Long term (current) use of aspirin; Z79.899 Other long term (current) drug therapy; M19.90 Unspecified osteoarthritis, unspecified site; G89.29 Other chronic pain; B35.3 Tinea pedis; B35.1 Tinea unguium; Z22.322 Carrier or suspected carrier of Methicillin resistant Staphylococcus aureus; E87.6 Hypokalemia; M16.10 Unilateral primary osteoarthritis, unspecified hip; M17.10 Unilateral primary osteoarthritis, unspecified knee; I87.2 Venous insufficiency (chronic) (peripheral); E80.6 Other disorders of bilirubin metabolism
CPT/HCPCS: 36415; 70450-TC; 71045-TC; 76770-TC; 80048-TC; 80053-TC; 80061-TC; 80076-TC; 80164-TC; 80305; 81000-TC; 82140-TC; 82272-TC; 82570-TC; 83605-TC; 83735-TC; 84100-TC; 84155-TC; 84300-TC; 84443-TC; 84484-TC; 85025-TC; 85730-TC; 87040-TC; 87081-TC; 87086-TC; 87186-TC; 97530-TC; A6403; G0480

== ENCOUNTER 2018-10-16 11:43 | Inpatient (IN) | payer MEDICARE, OTHER ==
[~2018-10-16] VITALS: Ht 149.9 cm; Wt 46.7 kg
[2018-10-16 11:00] VITALS: BP 140/80
--- NOTE | 2018-10-16 11:00 | NUR ---
MS RN NOTE RECEIVED REPORT FROM ZACK MAZARIEGOS GPS.RECEIVED PATIENT IN [place] CHAIR.ON RA.NO SOB NO DISTRESS NOTED.INSERTED IV ON RW#22,SL.SITTER AT BEDSIDE.AXOX1.SAFETY AND ASPIRATION PRECAUTIONS IN PLACE.SRX3.WILL CONTINUE TO MONITOR.
[~2018-10-16 11:43] MED LIST changes: +APIX5TAB PO; -BUDE180A IH; -CEPH-570 PO; -DOCU-141 PO; +MULT-447 PO; -MUPI22OI7 TD; -TOLN15CR TP; +TRAM50TA2 PO; -TRIA15CR2 TP; +VITA1TAB56 PO
[2018-10-16] MEDS ORDERED: IV NS 0.9% 1,000 ML BAG IV PRN (12:30)
[2018-10-16] MEDS ORDERED: ACETAMINOPHEN 325 MG TABLET PO PRN ×2 (12:30→14:00)
[2018-10-16] MEDS ORDERED: TEMAZEPAM 15 MG CAPSULE PO PRN (12:30)
[2018-10-16] MEDS ORDERED: MAGNESIUM HYDROXIDE 30 ML UDC PO PRN ×2 (12:30→14:00)
[2018-10-16] MEDS ORDERED: HYDROCODONE/APAP 5/325MG 1 EACH TABLET PO PRN (12:30)
[2018-10-16] MEDS ORDERED: ONDANSETRON HCL/PF 4 MG/2 ML VIAL IVP PRN (12:30)
[2018-10-16] MEDS ORDERED: MAG HYDROX/AL HYDROX/SIMETH 30 ML UDC PO PRN ×2 (12:30→14:00)
--- NOTE | 2018-10-16 12:37 | NUR ---
WOUND CARE CONSULT: PT PRESENTS WITH MIDBACK DEEP TISSUE INJURY IN EVOLUTION AND RT THIGH WOUND, RT KNEE SCAB, MULTIPLE BRUISES, ALL PRESENT ON ADMISSION. RECOMMENDATIONS MADE FOR WOUND CARE AND SKIN PROTECTION. DISCUSSED WITH NURSING STAFF. PT NOTED TO HAVE BERNARDO CATH WITH BLOODY URINE AND SMALL AMOUNT OF RECTAL BLEEDING WELL. PT IS INCONTINENT OF STOOL AT THIS TIME. SITTER AT BEDSIDE. WILL SEE PRN. PT ON PATERSON ISOFLEX LOW AIRLOSS BED. SEVERE KYPHOSIS NOTED TO BACK AND PT NOTED TO BE VERY THIN AND BONY. IN AGREEMENT WITH PLAN OF CARE. Addendum: 10/16/18 at 1240 by ADRIENNE PATHAK WNDNU Amended: Links added.
[2018-10-16] MEDS ORDERED: LORAZEPAM 1 MG TABLET PO PRN (13:00)
[2018-10-16] MEDS ORDERED: Z GUARD REMEDY 2 OZ OINT TP PRN (13:00)
[2018-10-16] MEDS ORDERED: ZOLPIDEM TARTRATE 5 MG TABLET PO PRN (13:00)
--- NOTE | 2018-10-16 13:00 | NUR ---
MS RN NOTE SEEN BY ALIS BALTAZAR ,UPDATED ABOUT PATIENT CONDITION WITH LABS AND HEMATURIA.GOT NEW ORDERS.WILL CONTINUE TO MONITOR.
[2018-10-16] MEDS: IV NS 0.9% 1,000 ML IV PRN (13:07)
[2018-10-16] MEDS ORDERED: ALLA266C2 TP (13:14)
[2018-10-16] MEDS ORDERED: MAGN400O6 PO (13:14)
[2018-10-16] MEDS ORDERED: NITR100C6 PO (13:14)
[2018-10-16] MEDS ORDERED: [UNRECOGNIZED DRUG - OTHER] (13:14)
[2018-10-16] MEDS ORDERED: ZOLP5TAB8 PO (13:14)
[2018-10-16] MEDS ORDERED: CLOT15CR63 TP (13:14)
[2018-10-16] MEDS ORDERED: DIVA-78 PO (13:14)
[2018-10-16] MEDS ORDERED: MAG30ORA PO (13:14)
[2018-10-16] MEDS ORDERED: LORA1TAB PO (13:14)
[2018-10-16] MEDS ORDERED: RISP1TAB7 PO (13:14)
[2018-10-16] MEDS ORDERED: TAMS-12 PO (13:14)
[2018-10-16] MEDS ORDERED: TYL2T PO (13:14)
[2018-10-16] MEDS: AMPICILLIN SODIUM 2 GM in IV NS 0.9% 100 ML IV SCH ×3 (13:36→23:07)
[2018-10-16] MEDS: DIVALPROEX SODIUM 250 MG TABLET.DR PO SCH ×2 (13:42→22:20)
[2018-10-16] MEDS: Z GUARD REMEDY 2 OZ OINT TP SCH (14:25)
[2018-10-16] MEDS: PANTOPRAZOLE 40 MG TABLET.DR PO SCH ×2 (14:27→22:20)
[2018-10-16 16:00] VITALS: BP 142/83
[2018-10-16] MEDS: MONTELUKAST SODIUM (10MG) 10 MG TABLET PO SCH (17:39)
[2018-10-16] MEDS: ENSURE ENLIVE 237 ML LIQUID (VANILLA) PO SCH (18:11)
[2018-10-16] MEDS ORDERED: ALBUTEROL FS 2.5 MG/3 ML VIAL.NEB NEB PRN ×2 (19:30)
--- NOTE | 2018-10-16 19:30 | NUR ---
MS/RN OPENING NOTES PT AWAKE, RESTING IN BED. A/OX1. ON 2L O2 VIA NC, BREATHING EVEN AND UNLABORED. NO SOB OR PAIN NOTED. SITTER AT BEDSIDE. IV TO RAC AND RFA PATENT AND INTACT RUNNING IVF ORDERED. BERNARDO IN PLACE AND DRAINING TO GRAVITY, WITH HEMATURIA. FOR CT CHEST/ABD/PELVIS WITH IV AND ORAL CONTRAST. CONSENT SIGNED BY MD AND IN THE CHART. BED IN LOW/LOCKED POSITION WITH CALL LIGHT IN REACH. HOB ELEVATED, SIDE RAILS UPX3 AND BED ALARM ON FOR SAFETY. WILL CONTINUE TO MONITOR
--- NOTE | 2018-10-16 19:42 | NUR ---
MS RN CLOSING NOTE SEEN BY ALIS BALTAZAR UPDATED ABOUT PATIENT CONDITION WITH LABS,MADE AWARE ABOUT RECTAL BLEEDING AND GROSS HEMATURIA.GOT NEW ORDER FOR GI CONSULT.SPOKE TO .CONTINUE TO MONITOR.LABS IN AM.SITTER AT BEDSIDE.CT RESULT RELAYED TO ALIS BALTAZAR NNO.NO FAMILY.SEEN BY GOT NEW ORDERS.ALIS BALTAZAR SIGNED FOR CT SCAN CONSENT.ENDORSE PATIENT TO PM NURSE FOR DILLAN.
[2018-10-16 20:00] VITALS: BP 131/77
[2018-10-16] MEDS ORDERED: DIVALPROEX SODIUM 500 MG TABLET.DR PO SCH (21:00)
--- NOTE | 2018-10-16 21:10 | NUR ---
MS/RN NOTES DR. MC AT BEDSIDE TO ASSESS PT. NO NEW ORDERS PRESENTED AT THIS TIME. MD WILL ADD ADDITIONAL ABX TO SCHEDULE.
[2018-10-16] MEDS ORDERED: LEVOFLOXACIN (500MG) 500 MG TABLET PO SCH (21:30)
[2018-10-16] MEDS: ATORVASTATIN 10 MG TABLET PO SCH (22:20)
[2018-10-16] MEDS: NITROFURANTOIN/NITROFURAN MAC 100 MG CAPSULE PO SCH (22:20)
[2018-10-16] MEDS: FINASTERIDE (5 MG) 5 MG TABLET PO SCH (22:20)
[2018-10-16] MEDS: risperiDONE 1 MG TABLET PO SCH (22:20)
[2018-10-17 04:00] VITALS: BP 124/77
[2018-10-17 06:20] LABS: BASOPHILS % (AUTO) 0.5 % (0.0-2.0); EOSINOPHILS % (AUTO) 2.8 % (0.0-6.0); HEMATOCRIT 33 % (39-51); HEMOGLOBIN 11.2 g/dL (13.5-17.5); LYMPHOCYTES # (AUTO) 0.9 /CMM (0.8-4.8); LYMPHOCYTES % (AUTO) 15.6 % (20.0-44.0); MEAN CORPUSCULAR HGB CONC 34 g/dl (31.0-36.0); MEAN CORPUSCULAR VOLUME 93 fL (80-96); MONOCYTES % (AUTO) 16.4 % (2.0-12.0); NEUTROPHILS # (AUTO) 3.9 /CMM (1.8-8.9); NEUTROPHILS % (AUTO) 64.7 % (43.0-81.0); PLATELET COUNT (AUTO) 304 /CMM (150-450); RED BLOOD CELL COUNT(AUTO) 3.51 MIL/uL (4.5-6.0)
[2018-10-17] MEDS: AMPICILLIN SODIUM 2 GM in IV NS 0.9% 100 ML IV SCH ×3 (06:21→17:54)
[2018-10-17 06:27] LABS: CALCIUM, SERUM 8.2 mg/dL (8.5-10.1); CREATININE 0.7 mg/dL (0.6-1.3); MAGNESIUM 1.9 mg/dL (1.8-2.4); PHOSPHORUS 2.8 mg/dL (2.5-4.9); POTASSIUM 3.6 mmol/L (3.5-5.1)
[2018-10-17 06:37] LABS: FREE PSA 0.06 ng/mL (0.00-45); PROSTATE SPECIFIC ANTIGEN SCR 0.89 ng/mL (0.00-4.00); THYROID STIMULATING HORMONE 2.113 uIU/mL (0.358-3.74)
--- NOTE | 2018-10-17 07:33 | NUR ---
MS/RN CLOSING NOTES PT RESTING COMFORTABLY IN BED. A/OX1. ON 2L O2 VIA NC, BREATHING EVEN AND UNLABORED. NO SOB OR PAIN NOTED. SITTER REMAINS AT BEDSIDE. IV TO RAC AND RFA PATENT AND INTACT RUNNING IVF ORDERED. NO BEHAVIORAL ISSUES NOTED. BERNARDO IN PLACE AND DRAINING TO GRAVITY, STILL WITH HEMATURIA. FOR CT CHEST/ABD/PELVIS WITH IV AND ORAL CONTRAST. CONSENT SIGNED BY MD AND IN THE CHART. PT WITH X1 BLACK BM DURING SHIFT. BED IN LOW/LOCKED POSITION WITH CALL LIGHT IN REACH. HOB ELEVATED, SIDE RAILS UPX3 AND BED ALARM ON FOR SAFETY. ENDORSED TO DAY SHIFT RN DILLAN.
--- NOTE | 2018-10-17 07:52 | NUR ---
RN NOTE: PATIENT RECEIVED ALERT AWAKE ORIENTED X 1. ON 2 LPM O2 VIA NC, NO BREATHING DISTRESS NOTED. DENIES PAIN & DISCOMFORT. BERNARDO CATH INTACT, DRAINING WELL WITH GRAVITY. CONTINUE WITH IV FLUIDS ORDERED. CONTINUE TO MONITOR FOR LOWER GI BLEED. PLAN FOR CT CHEST WITH CONTRAST TODAY. SITTER AT BEDSIDE. SAFETY MEASURES OBSERVED. CONTINUE TO MONITOR.
[2018-10-17 08:00] VITALS: BP_SYST 120; BP_SYST 123; BP_DIAS 72
[2018-10-17] MEDS: DILTIAZEM HCL CD 240 MG PO SCH (08:39)
[2018-10-17] MEDS: FINASTERIDE (5 MG) 5 MG TABLET PO SCH (08:39)
[2018-10-17] MEDS: TAMSULOSIN 0.4 MG CAP.SR.24H PO SCH (08:39)
[2018-10-17] MEDS: VITAMIN B COMP W-C 1 TAB TABLET PO SCH (08:39)
[2018-10-17] MEDS: DIVALPROEX SODIUM 250 MG TABLET.DR PO SCH ×2 (08:39→21:42)
[2018-10-17] MEDS: MULTIVITAMINS,THERAGRAN 1 UDTAB TABLET PO SCH (08:40)
[2018-10-17] MEDS: ENSURE ENLIVE 237 ML LIQUID (VANILLA) PO SCH ×2 (08:40→17:54)
[2018-10-17] MEDS: NITROFURANTOIN/NITROFURAN MAC 100 MG CAPSULE PO SCH ×2 (08:40→21:42)
[2018-10-17] MEDS: PANTOPRAZOLE 40 MG TABLET.DR PO SCH ×2 (08:40→21:42)
[2018-10-17] MEDS: Z GUARD REMEDY 2 OZ OINT TP SCH (08:41)
[2018-10-17] MEDS ORDERED: MULTIVITAMIN LIQ 5 ML UDC PO SCH (09:00)
[2018-10-17] MEDS ORDERED: FUROSEMIDE 40 MG TABLET PO SCH (09:00)
[2018-10-17] MEDS ORDERED: Z GUARD REMEDY 2 OZ OINT TP SCH (09:00)
[2018-10-17] MEDS ORDERED: DIATR MEGLU/DIATRIZOATE SODIUM 30 ML BOTTLE (GASTROGRAPHIN) ONE (09:40)
[2018-10-17] MEDS: CLOTRIMAZOLE 1% 15 GM TUBE TP SCH (10:45)
[2018-10-17] MEDS: IV NS 0.9% 1,000 ML IV PRN (10:52)
[2018-10-17] MEDS ORDERED: IOHEXOL-300 100 ML VIAL IV ONE (15:28)
[2018-10-17 16:00] VITALS: BP 118/70
--- NOTE | 2018-10-17 16:29 | NUR ---
RN NOTE; PATIENT REMAINS STABLE DURING SHIFT. SITTER AT BEDSIDE. PATIENT REFUSED TO DRINK ORAL CONTRAST. DR. LAGUNAS AWARE, OK TO DO CT ABDOMEN WITH IV CONTRAST ONLY. EPISODE OF BRIGHT RED COLOR STOOL NOTED, DR. TSAI MADE AWARE. HEMATURIA IS IMPROVING. CONTINUE WITH PLAN OF CARE.
[2018-10-17] MEDS: MONTELUKAST SODIUM (10MG) 10 MG TABLET PO SCH (17:54)
[2018-10-17 20:00] VITALS: BP 126/71
--- NOTE | 2018-10-17 20:15 | NUR ---
RN OPENING NOTES RECEIVED REPORT FROM RACHNA MAZARIEGOS. PATIENT A/A/O X1 TO NAME W/ CONFUSION BUT ABLE TO MAKE SOME NEEDS KNOWN & STATE PAIN. BREATHING EVEN & UNLABORED, TOLERATING ROM AIR. DENIES ANY SOB OR DIFFICULTY BREATHING. RADIAL PULSES PRESENT. RIGHT HAND IV #22 & RIGHT AC IV #20 INTACT & PATENT W/ DRESSING CDI & IVF NS INFUSING WELL @ 75 ML/HR. DENIES ANY PAIN OR DISCOMFORT @ THIS TIME. SAFETY MEASURES IN PLACE W/ SIDE RAILS UP & BED ALARM ON. SITTER @ BEDSIDE. WILL CONTINUE TO MONITOR.
[2018-10-17] MEDS ORDERED: PEG 3350/NA SULF,BICARB,CL/KCL 4,000 ML BOTTLE PO ONE (20:30)
[2018-10-17] MEDS: risperiDONE 1 MG TABLET PO SCH (21:42)
[2018-10-17] MEDS: ATORVASTATIN 10 MG TABLET PO SCH (21:43)
[2018-10-18] MEDS: AMPICILLIN SODIUM 2 GM in IV NS 0.9% 100 ML IV SCH ×4 (00:08→17:34)
[2018-10-18 04:00] VITALS: BP 123/52
--- NOTE | 2018-10-18 06:00 | NUR ---
RN NOTES PATIENT HAD X1 BM W/ DARK RED BLOOD & SOME HEMATURIA STILL NOTED DRAINING FROM BERNARDO CATH. PATIENT ALSO NON-COMPLIANT W/ DRINKING GOLYTELY ORDERED. WILL ENDORSE TO AM NURSE.
[2018-10-18 07:10] LABS: CALCIUM, SERUM 8.2 mg/dL (8.5-10.1); CREATININE 0.7 mg/dL (0.6-1.3); POTASSIUM 3.6 mmol/L (3.5-5.1)
[2018-10-18 07:12] LABS: BASOPHILS # (AUTO) 0.1 /CMM (0.0-0.2); EOSINOPHILS % (AUTO) 3.6 % (0.0-6.0); HEMATOCRIT 33 % (39-51); HEMOGLOBIN 11.2 g/dL (13.5-17.5); LYMPHOCYTES # (AUTO) 1.2 /CMM (0.8-4.8); LYMPHOCYTES % (AUTO) 19.7 % (20.0-44.0); MEAN CORPUSCULAR HGB CONC 34 g/dl (31.0-36.0); MEAN CORPUSCULAR VOLUME 94 fL (80-96); MONOCYTES # (AUTO) 1.1 /CMM (0.1-1.30); MONOCYTES % (AUTO) 17.8 % (2.0-12.0); NEUTROPHILS # (AUTO) 3.4 /CMM (1.8-8.9); NEUTROPHILS % (AUTO) 57.9 % (43.0-81.0); PLATELET COUNT (AUTO) 293 /CMM (150-450); RED BLOOD CELL COUNT(AUTO) 3.49 MIL/uL (4.5-6.0); WHITE BLOOD COUNT (AUTO) 5.9 K/uL (4.3-11.0)
[2018-10-18 08:00] VITALS: BP 122/66
[2018-10-18 08:07] LABS: IMMUNOGLOBULIN A, SERUM 298 mg/dL (61-437); IMMUNOGLOBULIN G, SERUM 887 mg/dL (700-1600); IMMUNOGLOBULIN M, SERUM 35 mg/dL (20-172); T3, FREE 1.7 pg/mL (2.0-4.4)
--- NOTE | 2018-10-18 08:12 | NUR ---
MS RN OPENING NOTES RECEIVED PATIENT IN BED AWAKE, A/O X1 TO NAME W/ CONFUSION BUT ABLE TO MAKE SOME NEEDS KNOWN & STATE PAIN. NO SOB OR ACUTE DISTRESS NOTED. TOLERATING ROOM AIR. RIGHT HAND IV #22 & RIGHT AC IV #20 INTACT & PATENT W/ DRESSING CDI & IVF NS INFUSING WELL @ 75 ML/HR. DENIES ANY PAIN OR DISCOMFORT @ THIS TIME. SAFETY MEASURES IN PLACE W/ SIDE RAILS UP & BED ALARM ON. CALL LIGHT WITHIN REACH. SITTER @ BEDSIDE. WILL CONTINUE TO MONITOR.
[2018-10-18 09:01] LABS: EOSINOPHILS % (MANUAL) 5 % (0-4); LYMPHOCYTES % (MANUAL) 19 % (16-48); MONOCYTES % (MANUAL) 14 % (0-11.0); NEUTROPHILS % (MANUAL) 62 (42-76)
[2018-10-18] MEDS: VITAMIN B COMP W-C 1 TAB TABLET PO SCH (09:21)
[2018-10-18] MEDS: DIVALPROEX SODIUM 250 MG TABLET.DR PO SCH ×2 (09:21→21:00)
[2018-10-18] MEDS: ENSURE ENLIVE 237 ML LIQUID (VANILLA) PO SCH ×2 (09:22→17:35)
[2018-10-18] MEDS: DILTIAZEM HCL CD 240 MG PO SCH (09:22)
[2018-10-18] MEDS: PANTOPRAZOLE 40 MG TABLET.DR PO SCH ×2 (09:22→21:00)
[2018-10-18] MEDS: TAMSULOSIN 0.4 MG CAP.SR.24H PO SCH (09:22)
[2018-10-18] MEDS: NITROFURANTOIN/NITROFURAN MAC 100 MG CAPSULE PO SCH ×2 (09:22→21:00)
[2018-10-18] MEDS: FINASTERIDE (5 MG) 5 MG TABLET PO SCH (09:22)
[2018-10-18] MEDS: MULTIVITAMINS,THERAGRAN 1 UDTAB TABLET PO SCH (09:22)
[2018-10-18] MEDS: Z GUARD REMEDY 2 OZ OINT TP SCH (09:23)
[2018-10-18] MEDS: CLOTRIMAZOLE 1% 15 GM TUBE TP SCH (09:23)
[2018-10-18] MEDS ORDERED: PEG 3350/NA SULF,BICARB,CL/KCL 4,000 ML BOTTLE PO ONE (10:00)
[2018-10-18 15:07] LABS: *SPE A/G RATIO 1.1 (0.7-1.7); *SPE ALBUMIN 2.7 g/dL (2.9-4.4); *SPE ALPHA-1-GLOBULIN 0.3 g/dL (0.0-0.4); *SPE ALPHA-2-GLOBULIN 0.7 g/dL (0.4-1.0); *SPE BETA GLOBULIN 0.8 g/dL (0.7-1.3); *SPE GLOBULIN, TOTAL 2.5 g/dL (2.2-3.9); *SPE M-SPIKE Not Observed g/dL (Not Observed); *SPEGAMMA GLOBULIN 0.7 g/dL (0.4-1.8)
[2018-10-18 16:00] VITALS: BP 105/60
[2018-10-18] MEDS: MONTELUKAST SODIUM (10MG) 10 MG TABLET PO SCH (17:38)
[2018-10-18 19:00] VITALS: BP 146/76
--- NOTE | 2018-10-18 19:53 | NUR ---
MS RN CLOSING NOTES PATIENT IN BED AWAKE, A/O X1 TO NAME W/ CONFUSION BUT ABLE TO MAKE SOME NEEDS KNOWN & STATE PAIN. NO SOB OR ACUTE DISTRESS NOTED. TOLERATING ROOM AIR. STATED TO KEEP IV AND BERNARDO CATHETER IN PLACE UPON PLANNED DISCHARGE TOMORROW. RIGHT HAND IV #22 & RIGHT AC IV #20 INTACT & PATENT. DENIES ANY PAIN OR DISCOMFORT @ THIS TIME. SAFETY MEASURES IN PLACE W/ SIDE RAILS UP & BED ALARM ON. CALL LIGHT WITHIN REACH. SITTER @ BEDSIDE. CARE ENDORSED TO RESEARCH ADMINISTRATOR RN.
[2018-10-18 20:00] VITALS: BP 146/76
--- NOTE | 2018-10-18 20:25 | NUR ---
RN OPENING NOTES RECEIVED REPORT FROM NATHALIE MAZARIEGOS. PATIENT A/A/O X1 TO NAME W/ CONFUSION BUT ABLE TO MAKE SOME NEEDS KNOWN & STATE PAIN. BREATHING EVEN & UNLABORED, TOLERATING ROM AIR. DENIES ANY SOB OR DIFFICULTY BREATHING. RADIAL PULSES PRESENT. RIGHT HAND IV #22 & RIGHT AC IV #20 INTACT & PATENT W/ DRESSING CDI & IVF NS INFUSING WELL @ 75 ML/HR. DENIES ANY PAIN OR DISCOMFORT @ THIS TIME. SAFETY MEASURES IN PLACE W/ SIDE RAILS UP & BED ALARM ON. SITTER @ BEDSIDE. WILL CONTINUE TO MONITOR.
[2018-10-18] MEDS: ATORVASTATIN 10 MG TABLET PO SCH (22:00)
[2018-10-18] MEDS: risperiDONE 1 MG TABLET PO SCH (22:00)
--- NOTE | 2018-10-18 23:45 | NUR ---
RN NOTES NOTED PATIENT TO BE MORE LETHARGIC & HARD TO AROUSE. PAIN STIMULI GIVEN AND PATIENT ABLE TO VERBALIZE "OW" AND WITHDRAW FROM PAIN. NEURO CHECK DONE & ABLE TO FOLLOW SIMPLE COMMANDS. NOTED W/ STRONG BILATERAL HAND CITY ADMINISTRATOR & ABLE TO PUSH DOWN W/ FEET. NO DRIFT W/ ARMS & LEGS BUT NOTED PATIENT NOT ABLE TO OPEN LEFT EYE. NO FACIAL DROOP. ALL 2200 MEDS HELD D/T INCREASED LETHARGY. CHARGE NURSE & DR VAZQUEZ MADE AWARE. NO NEW ORDERS RECEIVED.
[2018-10-19] MEDS: AMPICILLIN SODIUM 2 GM in IV NS 0.9% 100 ML IV SCH ×5 (00:56→23:39)
[2018-10-19 04:00] VITALS: BP 134/81
[2018-10-19 07:50] LABS: BASOPHILS # (AUTO) 0.1 /CMM (0.0-0.2); EOSINOPHILS % (AUTO) 3.1 % (0.0-6.0); HEMATOCRIT 34 % (39-51); HEMOGLOBIN 11.4 g/dL (13.5-17.5); LYMPHOCYTES # (AUTO) 1.1 /CMM (0.8-4.8); LYMPHOCYTES % (AUTO) 17.8 % (20.0-44.0); MEAN CORPUSCULAR HGB CONC 34 g/dl (31.0-36.0); MEAN CORPUSCULAR VOLUME 95 fL (80-96); MONOCYTES # (AUTO) 1.3 /CMM (0.1-1.30); MONOCYTES % (AUTO) 20.6 % (2.0-12.0); NEUTROPHILS # (AUTO) 3.5 /CMM (1.8-8.9); NEUTROPHILS % (AUTO) 57.5 % (43.0-81.0); PLATELET COUNT (AUTO) 333 /CMM (150-450); RED BLOOD CELL COUNT(AUTO) 3.53 MIL/uL (4.5-6.0); WHITE BLOOD COUNT (AUTO) 6.1 K/uL (4.3-11.0)
--- NOTE | 2018-10-19 07:52 | NUR ---
MS RN OPENING NOTES RECEIVED PATIENT IN BED AWAKE, A/O X1 TO NAME W/ CONFUSION BUT ABLE TO MAKE SOME NEEDS KNOWN & STATE PAIN. NO SOB OR ACUTE DISTRESS NOTED. TOLERATING ROOM AIR. RIGHT HAND IV #22 & RIGHT AC IV #20 INTACT & PATENT. DENIES ANY PAIN OR DISCOMFORT @ THIS TIME. SAFETY MEASURES IN PLACE W/ SIDE RAILS UP & BED ALARM ON. CALL LIGHT WITHIN REACH. SITTER @ BEDSIDE. WILL CONTINUE TO MONITOR.
[2018-10-19 08:00] VITALS: BP 122/69
[2018-10-19 08:58] LABS: CALCIUM, SERUM 8.7 mg/dL (8.5-10.1); CREATININE 0.7 mg/dL (0.6-1.3); POTASSIUM 3.7 mmol/L (3.5-5.1)
[2018-10-19 09:33] LABS: EOSINOPHILS % (MANUAL) 8 % (0-4); LYMPHOCYTES % (MANUAL) 25 % (16-48); MONOCYTES % (MANUAL) 14 % (0-11.0); NEUTROPHILS % (MANUAL) 53 (42-76)
[2018-10-19] MEDS: DILTIAZEM HCL CD 240 MG PO SCH (09:40)
[2018-10-19] MEDS: FINASTERIDE (5 MG) 5 MG TABLET PO SCH (09:40)
[2018-10-19] MEDS: NITROFURANTOIN/NITROFURAN MAC 100 MG CAPSULE PO SCH ×2 (09:40→21:04)
[2018-10-19] MEDS: MULTIVITAMINS,THERAGRAN 1 UDTAB TABLET PO SCH (09:40)
[2018-10-19] MEDS: PANTOPRAZOLE 40 MG TABLET.DR PO SCH ×2 (09:40→21:04)
[2018-10-19] MEDS: VITAMIN B COMP W-C 1 TAB TABLET PO SCH (09:40)
[2018-10-19] MEDS: DIVALPROEX SODIUM 250 MG TABLET.DR PO SCH ×2 (09:40→21:04)
[2018-10-19] MEDS: TAMSULOSIN 0.4 MG CAP.SR.24H PO SCH (09:40)
[2018-10-19] MEDS: CLOTRIMAZOLE 1% 15 GM TUBE TP SCH (09:58)
[2018-10-19] MEDS: Z GUARD REMEDY 2 OZ OINT TP SCH (09:59)
[2018-10-19] MEDS: ENSURE ENLIVE 237 ML LIQUID (VANILLA) PO SCH ×2 (09:59→17:06)
[2018-10-19 16:00] VITALS: BP 130/71
--- NOTE | 2018-10-19 17:00 | NUR ---
BERNARDO CATHETER REMOVED PER MD ORDER. URINE SAMPLE SENT TO LAB PER .
[2018-10-19] MEDS: MONTELUKAST SODIUM (10MG) 10 MG TABLET PO SCH (18:20)
--- NOTE | 2018-10-19 19:45 | NUR ---
MS RN NOTE : RECEIVED PT ON BED LETHARGIC BUT RESPONDS TO VERBAL AND TACTILE STIMULI. SITTER AT BEDSIDE. NO APPARENT DISTRESS NOTED. NO FACIAL GRIMACING OR ANY SIGNS OF PAIN NOTED. BREATHING EVEN AND UNLABORED WITH NORMAL RESPIRATIONS. IV ON RIGHT ANTECUBITAL #20 AND RIGHT HAND #22 INTACT AND PATENT, FLUSHING WELL. KEPT CLEAN, DRY AND COMFORTABLE. SAFETY AND FALL PRECAUTIONS OBSERVED AND MAINTAINED. WILL CONTINUE TO MONITOR PT.
--- NOTE | 2018-10-19 19:49 | NUR ---
MS RN CLOSING NOTES PATIENT IN BED AWAKE, A/O X1 TO NAME W/ CONFUSION BUT ABLE TO MAKE SOME NEEDS KNOWN & STATE PAIN. NO SOB OR ACUTE DISTRESS NOTED. TOLERATING ROOM AIR. RIGHT HAND IV #22 & RIGHT AC IV #20 INTACT & PATENT. DENIES ANY PAIN OR DISCOMFORT @ THIS TIME. PATIENT SEEN BY MULTIPLE MD'S THROUGHOUT THE SHIFT. SAFETY MEASURES IN PLACE W/ SIDE RAILS UP & BED ALARM ON. CALL LIGHT WITHIN REACH. SITTER @ BEDSIDE. CARE ENDORSED TO MECHANICAL HANDYMAN RN. .
[2018-10-19 20:00] VITALS: BP 103/62
[2018-10-19 20:26] LABS: APPEARANCE,URINE Slightly Cloudy (CLEAR); BILIRUBIN,URINE Negative (NEGATIVE); BLOOD, URINE Large Ery/uL (NEGATIVE); COLOR,URINE Dark (YELLOW); KETONES,URINE 15 (NEGATIVE); LEUKOCYTE ESTERASE ,URINE Trace (NEGATIVE); NITRITE, URINE Negative (NEGATIVE); PH,URINE 7.5 (5.0-8.0); PROTEIN,URINE 100 mg/dl (NEGATIVE); UGLUCOSE Negative (NEGATIVE)
[2018-10-19 20:51] LABS: BACTERIA,URINE Few /HPF (None Seen); RBC,URINE 21-50 /HPF (0-2); SQUAMOUS EPITHELIAL CELL,UR Few /HPF (None Seen)
[2018-10-19] MEDS: ATORVASTATIN 10 MG TABLET PO SCH (21:04)
[2018-10-19] MEDS: risperiDONE 1 MG TABLET PO SCH (21:04)
[2018-10-20 04:00] VITALS: BP 124/70
[2018-10-20] MEDS: AMPICILLIN SODIUM 2 GM in IV NS 0.9% 100 ML IV SCH ×2 (05:24→12:15)
[2018-10-20 05:29] VITALS: BP 124/70
--- NOTE | 2018-10-20 06:45 | NUR ---
MS RN NOTE: NO CHANGES NOTED THROUGHOUT THE SHIFT. NO APPARENT DISTRESS NOTED. SITTER AT BEDSIDE. NO COMPLAINTS OF PAIN OR DISCOMFORT AT THIS TIME. KEPT CLEAN, DRY AND COMFORTABLE. SAFETY AND FALL PRECAUTIONS OBSERVED AND MAINTAINED. WILL ENDORSE TO DAY SHIFT RN FOR CONTINUITY OF CARE.
[2018-10-20 07:06] LABS: CALCIUM, SERUM 8.2 mg/dL (8.5-10.1); CREATININE 0.7 mg/dL (0.6-1.3); POTASSIUM 3.9 mmol/L (3.5-5.1)
[2018-10-20 07:11] LABS: BASOPHILS # (AUTO) 0.1 /CMM (0.0-0.2); BASOPHILS % (AUTO) 1.1 % (0.0-2.0); EOSINOPHILS % (AUTO) 4.6 % (0.0-6.0); HEMATOCRIT 34 % (39-51); HEMOGLOBIN 11.3 g/dL (13.5-17.5); LYMPHOCYTES # (AUTO) 1.2 /CMM (0.8-4.8); LYMPHOCYTES % (AUTO) 15.5 % (20.0-44.0); MEAN CORPUSCULAR HGB CONC 34 g/dl (31.0-36.0); MEAN CORPUSCULAR VOLUME 95 fL (80-96); MONOCYTES # (AUTO) 1.6 /CMM (0.1-1.30); MONOCYTES % (AUTO) 20.7 % (2.0-12.0); NEUTROPHILS # (AUTO) 4.5 /CMM (1.8-8.9); NEUTROPHILS % (AUTO) 58.1 % (43.0-81.0); PLATELET COUNT (AUTO) 311 /CMM (150-450); RED BLOOD CELL COUNT(AUTO) 3.55 MIL/uL (4.5-6.0); WHITE BLOOD COUNT (AUTO) 7.7 K/uL (4.3-11.0)
[2018-10-20 08:00] VITALS: BP 133/57
[2018-10-20] MEDS: DILTIAZEM HCL CD 240 MG PO SCH (09:36)
[2018-10-20] MEDS: NITROFURANTOIN/NITROFURAN MAC 100 MG CAPSULE PO SCH (09:37)
[2018-10-20] MEDS: ENSURE ENLIVE 237 ML LIQUID (VANILLA) PO SCH ×2 (09:37→18:17)
[2018-10-20] MEDS: FINASTERIDE (5 MG) 5 MG TABLET PO SCH (09:37)
[2018-10-20] MEDS: DIVALPROEX SODIUM 250 MG TABLET.DR PO SCH (09:37)
[2018-10-20] MEDS: TAMSULOSIN 0.4 MG CAP.SR.24H PO SCH (09:37)
[2018-10-20] MEDS: VITAMIN B COMP W-C 1 TAB TABLET PO SCH (09:38)
[2018-10-20] MEDS: PANTOPRAZOLE 40 MG TABLET.DR PO SCH (09:38)
[2018-10-20] MEDS: MULTIVITAMINS,THERAGRAN 1 UDTAB TABLET PO SCH (09:38)
[2018-10-20] MEDS: CLOTRIMAZOLE 1% 15 GM TUBE TP SCH (09:39)
[2018-10-20] MEDS: Z GUARD REMEDY 2 OZ OINT TP SCH (09:39)
[2018-10-20 10:02] LABS: EOSINOPHILS % (MANUAL) 7 % (0-4); LYMPHOCYTES % (MANUAL) 15 % (16-48); METAMYELOCYTES % 1 % (0-0); MONOCYTES % (MANUAL) 17 % (0-11.0); MYELOCYTES % 2 % (0-0); NEUTROPHILS % (MANUAL) 58 (42-76)
[2018-10-20 18:06] VITALS: BP 102/60
[2018-10-20] MEDS: MONTELUKAST SODIUM (10MG) 10 MG TABLET PO SCH (18:16)
--- NOTE | 2018-10-20 19:00 | NUR ---
Patient discharged in stable condition. Vital signs: 106/60, 89, 17, 97%, 98.4. Patient refused pictures of his wounds. Midback wound, bruises on lower and upper extremities, and extremities, right thigh wound. [facility] EMT services (Ambulance given report and [facility] rehab given report.
== END 2018-10-20 19:30 | DRG 377 ==
LOC: MEDSG1 11:43
PROVIDERS: ADMIT Nurse Practitioner Acute Care; ATTEND Nurse Practitioner Acute Care
DX: K28.4 Chronic or unspecified gastrojejunal ulcer with hemorrhage (principal); E43 Unspecified severe protein-calorie malnutrition; G93.41 Metabolic encephalopathy; N17.0 Acute kidney failure with tubular necrosis; N39.0 Urinary tract infection, site not specified; R64 Cachexia; F23 Brief psychotic disorder; B96.4 Proteus (mirabilis) (morganii) as the cause of diseases classified elsewhere; I48.0 Paroxysmal atrial fibrillation; E87.6 Hypokalemia; Z22.322 Carrier or suspected carrier of Methicillin resistant Staphylococcus aureus; R31.0 Gross hematuria; B95.2 Enterococcus as the cause of diseases classified elsewhere; R33.9 Retention of urine, unspecified; K64.9 Unspecified hemorrhoids; Z79.01 Long term (current) use of anticoagulants; I10 Essential (primary) hypertension; J45.909 Unspecified asthma, uncomplicated; M17.10 Unilateral primary osteoarthritis, unspecified knee; M16.10 Unilateral primary osteoarthritis, unspecified hip; G89.29 Other chronic pain; M54.5 Low back pain; E88.09 Other disorders of plasma-protein metabolism, not elsewhere classified; Z68.20 Body mass index [BMI] 20.0-20.9, adult; M62.84 Sarcopenia; I87.2 Venous insufficiency (chronic) (peripheral); K44.9 Diaphragmatic hernia without obstruction or gangrene; F32.9 Major depressive disorder, single episode, unspecified; Z88.0 Allergy status to penicillin; D64.9 Anemia, unspecified; E80.6 Other disorders of bilirubin metabolism; K56.41 Fecal impaction; M40.209 Unspecified kyphosis, site unspecified
CPT/HCPCS: 36415; 70450-TC; 71045-TC; 80048-TC; 81000-TC; 82378; 82728-TC; 82784; 82962-TC; 83540-TC; 83735-TC; 84100-TC; 84153-TC; 84154-TC; 84155; 84165; 84439-TC; 84443-TC; 84481; 85025-TC; 86301; 86334; 93970-TC; G0378; J0290; J7030; J7040; Q9963; Q9967

== ENCOUNTER 2018-11-20 11:40 | Emergency (ER) | payer MEDICARE, MEDICAID ==
[~2018-11-20] VITALS: Ht 170.2 cm; Wt 51.7 kg
[~2018-11-20 11:40] MED LIST changes: +ALLA266C2 TP; +CLOT15CR63 TP; +DIVA-78 PO; +LORA1TAB PO; +MAG30ORA PO; +MAGN400O6 PO; +NITR100C6 PO; -POTA20TA83 PO; +RISP1TAB7 PO; +TAMS-12 PO; +TYL2T PO; +ZOLP5TAB8 PO; +[UNRECOGNIZED DRUG - OTHER]
--- NOTE | 2018-11-20 11:50 | NUR ---
BIBPA FROM SNF, C/O BILATERAL LOWER EXTREMITY EDEMA x 1 DAY. EVIDENCE OF DISCOLORATION AND SMALL WOUND ON EACH LEG. DENIES PAIN. AOX3, VSS, RR EVEN AND UNLABORED ON RA. NO ACUTE DISTRESS NOTED. NO OTHER COMPLAINTS AT THIS TIME. ON MONITOR AND MADE COMFORTABLE. SEEN BY DR LU. AWAITING ORDERS
[2018-11-20 12:05] LABS: BASOPHILS % (AUTO) 0.6 % (0.0-2.0); EOSINOPHILS % (AUTO) 1.2 % (0.0-6.0); HEMATOCRIT 36 % (39-51); LYMPHOCYTES # (AUTO) 0.9 /CMM (0.8-4.8); LYMPHOCYTES % (AUTO) 18.2 % (20.0-44.0); MEAN CORPUSCULAR HGB CONC 33 g/dl (31.0-36.0); MEAN CORPUSCULAR VOLUME 94 fL (80-96); MONOCYTES # (AUTO) 0.8 /CMM (0.1-1.30); MONOCYTES % (AUTO) 16.7 % (2.0-12.0); NEUTROPHILS % (AUTO) 63.3 % (43.0-81.0); PLATELET COUNT (AUTO) 291 /CMM (150-450); RED BLOOD CELL COUNT(AUTO) 3.86 MIL/uL (4.5-6.0); WHITE BLOOD COUNT (AUTO) 4.7 K/uL (4.3-11.0)
--- NOTE | 2018-11-20 12:05 | NUR ---
IV ACCESS OBTAINED. PT JASON WELL. QUALITY CONSULTANT AT BEDSIDE FOR EKG. PRECINCT POLICE CAPTAIN STANDING BY
[2018-11-20 12:12] LABS: CALCIUM, SERUM 8.9 mg/dL (8.5-10.1); CARBON DIOXIDE 30 mmol/L (21-32); CHLORIDE 104 mmol/L (98-107); GLUCOSE 71 mg/dL (74-106); POTASSIUM 4.4 mmol/L (3.5-5.1); SODIUM SERUM 139 mmol/L (136-145); UREA NITROGEN, BLOOD 34 mg/dL (7-18)
[2018-11-20 12:27] LABS: ALANINE AMINOTRANSFERASE 24 U/L (12-78); ALBUMIN 2.8 g/dL (3.4-5.0); ALKALINE PHOSPHATASE 95 U/L (46-116); ASPARTATE AMINOTRANSFERASE 26 U/L (15-37); B-TYPE NATRIURETIC PEPTIDE 436 PG/ML (0-125); BILIRUBIN,DIRECT 0.2 mg/dL (0.0-0.2); BILIRUBIN,TOTAL 0.7 mg/dL (0.2-1.0); TOTAL PROTEIN, SERUM 6.6 g/dL (6.4-8.2)
--- NOTE | 2018-11-20 12:45 | NUR ---
PT TRYING TO GET OUT OF BED. MOVED TO BED 14 WHERE SITTER IS NEARBY.
--- NOTE | 2018-11-20 13:01 | NUR ---
[facility] ETA [address] [facility] [id number]
--- NOTE | 2018-11-20 14:00 | NUR ---
PT TRANSPORTED BACK TO FACILITY VIA [facility]. Patient discharged to home in stable condition. Written and verbal after care instructions given. Patient verbalizes understanding of instruction.IV removed. Catheter intact and site benign. Pressure and 4x4 applied to site. No bleeding noted.
[2018-11-20 15:01] VITALS: BP 135/81
== END 2018-11-20 14:00 ==
LOC: ER 11:42
DX: R60.0 Localized edema (principal); I10 Essential (primary) hypertension; J45.909 Unspecified asthma, uncomplicated; G89.29 Other chronic pain; Z88.2 Allergy status to sulfonamides; Z79.899 Other long term (current) drug therapy
CPT/HCPCS: 36415; 71045-TC; 80048-TC; 80076-TC; 83880; 84484-TC; 85025-TC; 85730-TC; 87081-TC

== ENCOUNTER 2019-01-02 19:53 | Inpatient (IN) | payer MEDICARE, MEDICAID ==
[~2019-01-02] VITALS: Ht 160 cm; Wt 47.4 kg
[~2019-01-02 19:53] MED LIST changes: -ALBU18HF2 IH; -ALLA266C2 TP; -ASPI-1169 PO; -CLOT15CR63 TP; +DILT-4 PO; -DILT240C2 PO; -MAG30ORA PO; -MAGN400O6 PO; -MULT-447 PO; -NITR100C6 PO; -TYL2T PO; -VITA1TAB56 PO; -ZOLP5TAB8 PO; -[UNRECOGNIZED DRUG - OTHER]
[2019-01-02 20:23] LABS: BASOPHILS % (AUTO) 0.2 % (0.0-2.0); HEMATOCRIT 44 % (39-51); HEMOGLOBIN 14.3 g/dL (13.5-17.5); LYMPHOCYTES # (AUTO) 0.3 /CMM (0.8-4.8); LYMPHOCYTES % (AUTO) 4.1 % (20.0-44.0); MEAN CORPUSCULAR HGB CONC 32 g/dl (31.0-36.0); MEAN CORPUSCULAR VOLUME 88 fL (80-96); MONOCYTES # (AUTO) 0.9 /CMM (0.1-1.30); MONOCYTES % (AUTO) 13.4 % (2.0-12.0); NEUTROPHILS # (AUTO) 5.8 /CMM (1.8-8.9); NEUTROPHILS % (AUTO) 82.3 % (43.0-81.0); PLATELET COUNT (AUTO) 393 /CMM (150-450); RED BLOOD CELL COUNT(AUTO) 5.04 MIL/uL (4.5-6.0)
[2019-01-02] MEDS ORDERED: ALBUTEROL FS 2.5 MG/3 ML VIAL.NEB CONTNEB ONE (20:30)
[2019-01-02] MEDS ORDERED: VANCOMYCIN 1 GM in IV D5W 250 ML IV ONE (20:30)
[2019-01-02] MEDS ORDERED: PIPERACILLIN /TAZOBACTAM 3.375 G in IV D5W 50 ML IV ONE (20:30)
[2019-01-02] MEDS ORDERED: IPRATROPIUM NEB FS 0.5 MG/2.5 ML AMPUL.NEB NEB ONE (20:30)
[2019-01-02] MEDS ORDERED: IV NS 0.9% 1,000 ML BAG IV ONE ×2 (20:30→21:00)
[2019-01-02] MEDS ORDERED: PIPERACILLIN /TAZOBACTAM 3.375 G VIAL IV ONE (20:31)
[2019-01-02] MEDS ORDERED: VANCOMYCIN 1 GM VIAL ONE (20:31)
--- NOTE | 2019-01-02 20:35 | NUR ---
[facility]. AAOX2. DYSPNEIC, BREATHING DEEP AND FAST. BROUGHT IS FOR SOB. PER REPORT, PT WAS DIAGNOSED OF PNA AND STARTED AZITHROMYCIN. PT WAS NOTED DESATURATING IN THE 89'S AND HAVING SOB. PT ARRIVED WITH A NON REBREATHER MASK @ 8LMP BY EMS SATTING @ 98%. NOTED BILAT CRACKLES AND DIMINISHED LUNGS SOUND AT THE BASES. GURLING HEARD OVER TRACHEAL AREA D/T SECRETION, ORAL SUCTIONING PROVIDED AND COPIOUS AMOUNT OF WHITE THICK SPUTUM WHICH HELPED WITH PT'S BREATHING. O2 WAS CHANGED TO NC @ 4 LMP SATTING AT 98%. RECTAL TEMP 100.3. IV LINE STARTED ON R UPPER ARM 18G. BLOOD DRAWN AND GIVEN TO TRAVEL ACCOMMODATION INSPECTOR. EKG DONE. XRAY DONE. MD WAS AT BEDSIDE. ORDERS RECEIVED, NOTED AND CARRIED OUT. PT ON MONITOR, WILL CONTINUE TO MONITOR
[2019-01-02 20:40] LABS: CALCIUM, SERUM 9.3 mg/dL (8.5-10.1); CARBON DIOXIDE 33 mmol/L (21-32); CHLORIDE 108 mmol/L (98-107); CREATININE 1.1 mg/dL (0.6-1.3); GLUCOSE 126 mg/dL (74-106); POTASSIUM 4.9 mmol/L (3.5-5.1); SODIUM SERUM 142 mmol/L (136-145); UREA NITROGEN, BLOOD 41 mg/dL (7-18)
[2019-01-02] MEDS ORDERED: IPRATROPIUM NEB FS 0.5 MG/2.5 ML AMPUL.NEB ONE (20:53)
[2019-01-02] MEDS ORDERED: ALBUTEROL FS 2.5 MG/3 ML VIAL.NEB ONE (20:53)
[2019-01-02 20:56] LABS: ALANINE AMINOTRANSFERASE 14 U/L (12-78); ALBUMIN 2.4 g/dL (3.4-5.0); ALKALINE PHOSPHATASE 98 U/L (46-116); ASPARTATE AMINOTRANSFERASE 16 U/L (15-37); B-TYPE NATRIURETIC PEPTIDE 409 PG/ML (0-125); BILIRUBIN,DIRECT 0.2 mg/dL (0.0-0.2); BILIRUBIN,TOTAL 0.7 mg/dL (0.2-1.0); TOTAL PROTEIN, SERUM 7.4 g/dL (6.4-8.2)
[2019-01-02] MEDS ORDERED: ACETAMINOPHEN 650 MG/SUPP.RECT RC ONE ×2 (21:00→21:10)
--- NOTE | 2019-01-02 21:16 | NUR ---
PAGED DR. ROMERO
--- NOTE | 2019-01-02 21:34 | NUR ---
DR. DRUMMOND ON THE PHONE WITH DR. ROMERO
[2019-01-02] MEDS ORDERED: DOCU-270 PO (22:25)
--- NOTE | 2019-01-02 22:38 | NUR ---
REPORT GIVEN TO YAIR ADAN FOR DILLAN . PT TO 311
--- NOTE | 2019-01-02 22:50 | NUR ---
RECEIVED PATIENT FROM ED VIA GURNEY IN STABLE CONDITION. PATIENT AWAKE, A/OX1 AND UNABLE TO PROVIDE HISTORY. NO C/O PAIN OR DISCOMFORT. PERIPHERAL LINE INTACT AND PATENT. FC PLACE IN ED INTACT AND PATENT. ROOM FREE OF CLUTTER AND BELONGINGS KEPT NEAR BEDSIDE. BED IN LOW LOCK SETTING WITH BED ALARM ON AND FUNCTIONING PROPERLY. WILL CONTINUE TO MONITOR.
--- NOTE | 2019-01-02 22:55 | NUR ---
PT TREANPORTED TO UNIT ON [facility] WITH EMT AND RN AT BEDSIDE W/ ACLS PROTOCOL. NAD NOTED DURING TRANSPORT.
[2019-01-02 23:00] VITALS: BP 143/83
--- NOTE | 2019-01-02 23:20 | NUR ---
CRITICAL LAB: LACTIC ACID 3.[address] ROMERO WITH NO NEW ORDERS RECEIVED. PATIENT WITH STANDING ORDER FOR IVF AND IV ATB. VITALS WNL. NO C/O PAIN OR DISCOMFORT. WILL CONTINUE TO MONITOR
[2019-01-02] MEDS ORDERED: PANTOPRAZOLE 40 MG VIAL IV SCH (23:30)
[2019-01-02] MEDS ORDERED: ACETAMINOPHEN 325 MG TABLET PO PRN (23:30)
[2019-01-02] MEDS ORDERED: ALBUTEROL FS 2.5 MG/3 ML VIAL.NEB NEB PRN (23:30)
[2019-01-02] MEDS: IV NS 0.9% 1,000 ML IV SCH (23:57)
[2019-01-03] MEDS: ENOXAPARIN SODIUM 40 MG/0.4 ML DISP.SYRIN SQ SCH ×2 (00:04→22:49)
[2019-01-03] MEDS: ALBUTEROL FS 2.5 MG/3 ML VIAL.NEB NEB SCH ×4 (01:25→19:42)
[2019-01-03] MEDS: PIPERACILLIN /TAZOBACTAM 3.375 G in IV D5W 50 ML IV SCH ×2 (03:00→04:52)
[2019-01-03 04:46] VITALS: BP 134/71
[2019-01-03] MEDS ORDERED: PIPERACILLIN /TAZOBACTAM 3.375 G VIAL IV ONE (04:48)
[2019-01-03 06:20] LABS: BASOPHILS % (AUTO) 0.3 % (0.0-2.0); EOSINOPHILS % (AUTO) 0.1 % (0.0-6.0); HEMATOCRIT 38 % (39-51); HEMOGLOBIN 12.5 g/dL (13.5-17.5); LYMPHOCYTES # (AUTO) 0.4 /CMM (0.8-4.8); LYMPHOCYTES % (AUTO) 4.9 % (20.0-44.0); MEAN CORPUSCULAR HGB CONC 32 g/dl (31.0-36.0); MEAN CORPUSCULAR VOLUME 89 fL (80-96); MONOCYTES % (AUTO) 12.3 % (2.0-12.0); NEUTROPHILS # (AUTO) 6.5 /CMM (1.8-8.9); NEUTROPHILS % (AUTO) 82.4 % (43.0-81.0); PLATELET COUNT (AUTO) 309 /CMM (150-450); RED BLOOD CELL COUNT(AUTO) 4.34 MIL/uL (4.5-6.0); WHITE BLOOD COUNT (AUTO) 7.9 K/uL (4.3-11.0)
--- NOTE | 2019-01-03 06:20 | NUR ---
MS RN NOTES PATIENT ASLEEP IN BED WITH NO DISTRESS NOTED. CALL LIGHT WITHIN REACH. ALL DUE MEDS GIVEN ORDERED WITH NO ASE. PERIPHERAL LINES INTACT AND PATENT. NO C/O PAIN OR DISCOMFORT. FC INTACT AND PATENT AND DRAINED 550ML CLEAR SILVESTRE URINE. ROOM FREE OF CLUTTER AND BELONGINGS KEPT NEAR BEDSIDE. BED IN LOW LOCK SETTING WITH BED ALARM ON AND FUNCTIONING PROPERLY. WILL ENDORSE TO ONCOMING SHIFT.
[2019-01-03 07:12] LABS: CALCIUM, SERUM 8.7 mg/dL (8.5-10.1); CREATININE 0.7 mg/dL (0.6-1.3); POTASSIUM 3.7 mmol/L (3.5-5.1)
[2019-01-03 07:30] VITALS: BP 137/137
--- NOTE | 2019-01-03 07:35 | NUR ---
TELE/RN NOTE THE PATIENT IS RECEIVED IN BED AND AWAKE. ALERT AND ORIENTED X1. DENIES PAIN AT THIS TIME. RECEIVING OXYGEN AT 2L/MIN VIA NASAL CANNULA AND DENIES SOB. THE EXTERNAL TELE BOX READING IS SR 62 WITH PVC AND PAC. THE PATIENT IS IN STABLE CONDITION. CONI G 18 PATENT AND SALINE LOCKED. LFA G 22 PATENT AND NORMAL SALINE INFUSING AT 100ML/HR AND NO S/S INFILTRATION NOTED. BED LOW AND LOCKED. SIDE RAILS UP X3. CALL LIGHT WITHIN REACH. WILL CONTINUE TO MONITOR.
[2019-01-03] MEDS ORDERED: FEE PK DOSING 1 MIN EA MC ONE (07:39)
--- NOTE | 2019-01-03 09:38 | NUR ---
WOUND CARE CONSULT: PT PRESENTS WITH MULTIPLE SKIN ISSUES AND WOUNDS INCLUDING RT HIP STAGE 2 ULCER, MIDBACK INTACT DEEP TISSUE INJURY, RT ELBOW WOUND, LEFT ELBOW DRY ESCHAR AND DISCOLORATION TO FEET WITH SKIN ISSUE/RASH, PRESENT ON ADMISSION. RECOMMEND DPM CONSULT AND SURGICAL CONSULT. DEFER TO SURGICAL TEAM AND PODIATRY TEAM FOR WOUND TREATMENT PLAN. DISCUSSED SKIN PROTECTION/PRESSURE ULCER PREVENTION WITH NURSING STAFF. [facility] WILL SEE PRN. Addendum: 01/03/19 at 0940 by ADRIENNE PATHAK WNDNU Amended: Links added. Addendum: 01/03/19 at [address] WNDNU [address] KELLER NOTIFIED OF CONSULT REQUESTS (SURGICAL AND DPM).
[2019-01-03] MEDS: VANCOMYCIN 0.75 GM in IV D5W 250 ML IV SCH ×2 (09:43→21:32)
[2019-01-03] MEDS: PANTOPRAZOLE 40 MG VIAL IV SCH (09:46)
[2019-01-03] MEDS: IV NS 0.9% 1,000 ML IV SCH (09:47)
[2019-01-03] MEDS: Z GUARD REMEDY 2 OZ OINT TP SCH (10:04)
[2019-01-03] MEDS: DIVALPROEX SODIUM 500 MG TABLET.DR PO SCH ×2 (10:06→21:32)
[2019-01-03] MEDS ORDERED: PIPERACILLIN /TAZOBACTAM 3.375 G in IV D5W 50 ML IV SCH (12:00)
[2019-01-03] MEDS: PIPERACILLIN /TAZOBACTAM 3.375 G in IV D5W 100 ML IV SCH ×2 (12:10→19:52)
--- NOTE | 2019-01-03 13:37 | NUR ---
MS/RN NOTE MADE DR ROMERO AWARE THAT THE PATIENT HAS NATURAL TEETH BUT IS WEAK TO CHEW FOOD AND THIS INCREASES THE CHANCES OF POOR INTAKE AND ASPIRATION. CARDIAC PUREED DIET ORDER IS RECEIVED FROM . NOTED AND CARRIED OUT.
[2019-01-03 16:00] VITALS: BP 120/71
[2019-01-03 16:30] VITALS: BP 120/71
[2019-01-03] MEDS: MONTELUKAST SODIUM (10MG) 10 MG TABLET PO SCH (18:10)
[2019-01-03] MEDS: DOCUSATE SODIUM 100 MG CAPSULE PO SCH (18:10)
--- NOTE | 2019-01-03 18:19 | NUR ---
MS/RN NOTE THE PATIENT IS ALERT AND ORIENTED X1. DENIES PAIN. PATIENT IS RECEIVING OXYGEN AT 2L/MIN VIA NASAL CANNULA AND SATURATION IS AT 96%. DENIES SOB. RESPIRATION REGULAR AND UNLABORED. BERNARDO CATH PRESENT AND NOTED CLEAR, YELLOW. CONI G 18 PATENT AND NS INFUSING AT 100ML/HR AND NO S/S INFILTRATION NOTED. BED LOW AND LOCKED. SIDE RAILS UP X3. CALL LIGHT WITHIN REACH. WILL ENDORSE TO JUNIOR BUYER.
[2019-01-03] MEDS: IV NS 0.9% 1,000 ML IV PRN (18:38)
--- NOTE | 2019-01-03 19:30 | NUR ---
RECEIVED PATIENT IN BED AWAKE. AO X 1, RESPONSIVE TO VOICE AND TOUCH. NO ACUTE DISTRESS NOTED. NO SIGNS OF PAIN NOTED. IV LINE PATENT, INTACT; IVF INFUSING ORDERED. BERNARDO CATH PATENT, INTACT; DRAINING ;SAFETY REMINDERS GIVEN. ON LOW BED WITH BILATERAL UPPER SIDE RAILS UP. CALL MARTIN WITHIN EASY REACH.
[2019-01-03 20:00] VITALS: BP 129/90
[2019-01-03 20:41] VITALS: BP 129/90
[2019-01-03] MEDS ORDERED: HYDROGEL DRESSING 90 GM TUBE TP ONE (21:30)
[2019-01-03] MEDS: risperiDONE 1 MG TABLET PO SCH (21:32)
--- NOTE | 2019-01-03 22:30 | NUR ---
NOTIFIED DR. IBARRA OF [facility] IN [facility] IN ONE BLOOD CULTURE. PATIENT AFEBRILE. ON BOTH ZOSYN AND VANCO IV. NO NEW ORDERS.
[2019-01-03] MEDS: ATORVASTATIN 10 MG TABLET PO SCH (22:48)
[2019-01-04] MEDS: ALBUTEROL FS 2.5 MG/3 ML VIAL.NEB NEB SCH ×4 (01:30→19:57)
[2019-01-04] MEDS: PIPERACILLIN /TAZOBACTAM 3.375 G in IV D5W 100 ML IV SCH ×3 (04:20→20:13)
--- NOTE | 2019-01-04 06:06 | NUR ---
PATIENT ASLEEP, EASILY AROUSABLE. RESPIRATIONS EVEN. NO SIGNS OF PAIN NOTED. DUE MEDS GIVEN WITH NO ASE NOTED. IVF INFUSING ORDERED. NEEDS ATTENDED. KEPT CLEAN, DRY AND COMFORTABLE. TURNED AND REPOSITIONED Q 2 HOURS. SAFETY PRECAUTIONS AND COMFORT MEASURES IN PLACE. WILL GIVE REPORT TO DAY SHIFT FOR CONTINUITY OF CARE.
[2019-01-04 08:00] VITALS: BP 131/68
--- NOTE | 2019-01-04 08:00 | NUR ---
MS RN AM NOTES RECEIVED PATIENT IN BED AWAKE. AO X 1, TALKING TO HIMSELF.RESPONSIVE TO VOICE AND TOUCH. SPITTED OUT ALL HIS PO AM MEDS INSPITE OF EXPLAINING ITS RISKS AND BENEFITS.WITH POOR ORAL INTAKE OF FLUIDS AND FOOD-EVEN OFFERED SNACKS BUT INSISTS TO REFUSE.NO ACUTE DISTRESS NOTED. NO SIGNS OF PAIN NOTED. IV LINE PATENT, INTACT; IVF INFUSING ORDERED. BERNARDO CATH PATENT, INTACT; DRAINING YELLOW URINE OUTPUT.SAFETY REMINDERS GIVEN. ON LOW BED WITH BILATERAL UPPER SIDE RAILS UP. CALL MARTIN WITHIN EASY REACH.
[2019-01-04 08:18] LABS: CALCIUM, SERUM 7.9 mg/dL (8.5-10.1); CREATININE 0.5 mg/dL (0.6-1.3); POTASSIUM 3.1 mmol/L (3.5-5.1)
[2019-01-04] MEDS: DILTIAZEM HCL CD 240 MG PO SCH ×2 (09:00→10:12)
[2019-01-04] MEDS: DIVALPROEX SODIUM 500 MG TABLET.DR PO SCH ×3 (09:00→21:07)
[2019-01-04] MEDS ORDERED: BACI/NEOM/POLY B OINT PKT 1 UDPKT PACKET TP SCH (09:00)
[2019-01-04] MEDS: TAMSULOSIN 0.4 MG CAP.SR.24H PO SCH ×2 (09:00→10:12)
[2019-01-04] MEDS: DOCUSATE SODIUM 100 MG CAPSULE PO SCH ×3 (09:00→17:13)
--- NOTE | 2019-01-04 10:00 | NUR ---
PT HAD SERIAL DEBRIDEMENT OF HIS RT ELBOW BY MADELINE MENDEZ. PT TOLERATED WELL. TYLENOL 650 MG PO GIVEN BUT PT SPITTED ALL HIS AM PO MEDS INSPITE OF EXPLAINING ITS RISKS AND BENEFITS.
[2019-01-04] MEDS: VANCOMYCIN 0.75 GM in IV D5W 250 ML IV SCH ×2 (10:06→20:14)
[2019-01-04] MEDS: Z GUARD REMEDY 2 OZ OINT TP SCH (10:06)
[2019-01-04] MEDS: HYDROGEL DRESSING 90 GM TUBE TP SCH (10:06)
[2019-01-04] MEDS: PANTOPRAZOLE 40 MG VIAL IV SCH (10:06)
[2019-01-04] MEDS: POTASSIUM CHLORIDE 20 MEQ TAB.PRT.SR PO SCH ×4 (10:12→11:30)
[2019-01-04] MEDS: IV NS 0.9% 1,000 ML IV PRN ×2 (10:22→23:59)
[2019-01-04 16:00] VITALS: BP 111/64
[2019-01-04] MEDS: MONTELUKAST SODIUM (10MG) 10 MG TABLET PO SCH (17:13)
[2019-01-04] MEDS: LACTOBACILLUS RHAMNOSUS GG 1 EACH CAP.SPRINK PO SCH (17:17)
--- NOTE | 2019-01-04 17:50 | NUR ---
PT WAS NOTED TO BE COUGHING WHILE DRINKING JUICE WITH A STRAW AND WHILE TAKING PUREED VEGIES ONE SPOON ONLY.HOB ELEVATED.WITH ASPIRATION PRECAUTIONS DURING FEEDING. WILL INFORM MD AND WILL REFER TO THE SPEECH THERAPIST FOR SWALLOW EVAL.
--- NOTE | 2019-01-04 19:30 | NUR ---
RECEIVED PATIENT IN BED AWAKE. AO X 1, RESPONSIVE TO VOICE AND TOUCH. NO ACUTE DISTRESS NOTED. NO SIGNS OF PAIN NOTED. IV LINE PATENT, INTACT; IVF INFUSING ORDERED. BERNARDO CATH PATENT, INTACT; DRAINING; SAFETY REMINDERS GIVEN. ASPIRATION PRECAUTIONS OBSERVED. ON LOW BED WITH BILATERAL UPPER SIDE RAILS UP. CALL MARTIN WITHIN EASY REACH. WILL CONTINUE TO MONITOR.
[2019-01-04 20:00] VITALS: BP 137/69
[2019-01-04] MEDS: risperiDONE 1 MG TABLET PO SCH (21:07)
[2019-01-04] MEDS: ATORVASTATIN 10 MG TABLET PO SCH (21:07)
--- NOTE | 2019-01-05 | NUR ---
PATIENT ASLEEP. IN STABLE CONDITION. WILL CONTINUE TO MONITOR.
[2019-01-05] MEDS: ENOXAPARIN SODIUM 40 MG/0.4 ML DISP.SYRIN SQ SCH (00:01)
[2019-01-05] MEDS: ALBUTEROL FS 2.5 MG/3 ML VIAL.NEB NEB SCH ×4 (02:14→19:36)
[2019-01-05] MEDS: PIPERACILLIN /TAZOBACTAM 3.375 G in IV D5W 100 ML IV SCH ×3 (04:17→20:23)
[2019-01-05 06:18] LABS: BASOPHILS % (AUTO) 0.2 % (0.0-2.0); EOSINOPHILS % (AUTO) 0.4 % (0.0-6.0); HEMATOCRIT 31 % (39-51); LYMPHOCYTES # (AUTO) 0.4 /CMM (0.8-4.8); LYMPHOCYTES % (AUTO) 3.6 % (20.0-44.0); MEAN CORPUSCULAR HGB CONC 33 g/dl (31.0-36.0); MEAN CORPUSCULAR VOLUME 86 fL (80-96); MONOCYTES # (AUTO) 0.8 /CMM (0.1-1.30); MONOCYTES % (AUTO) 7.3 % (2.0-12.0); NEUTROPHILS # (AUTO) 10.3 /CMM (1.8-8.9); NEUTROPHILS % (AUTO) 88.5 % (43.0-81.0); PLATELET COUNT (AUTO) 307 /CMM (150-450); RED BLOOD CELL COUNT(AUTO) 3.55 MIL/uL (4.5-6.0); WHITE BLOOD COUNT (AUTO) 11.6 K/uL (4.3-11.0)
[2019-01-05 06:41] LABS: CALCIUM, SERUM 8.1 mg/dL (8.5-10.1); CREATININE 0.5 mg/dL (0.6-1.3); MAGNESIUM 1.9 mg/dL (1.8-2.4); PHOSPHORUS 3.2 mg/dL (2.5-4.9); POTASSIUM 2.9 mmol/L (3.5-5.1)
[2019-01-05 08:00] VITALS: BP 131/71
--- NOTE | 2019-01-05 08:00 | NUR ---
MS RN AM NOTES RECEIVED PATIENT IN BED AWAKE. AO X 1, TALKING TO HIMSELF.RESPONSIVE TO VOICE AND TOUCH. SPITTED OUT ALL HIS PO AM MEDS INSPITE OF EXPLAINING ITS RISKS AND BENEFITS.WITH POOR ORAL INTAKE OF FLUIDS AND FOOD-EVEN OFFERED SNACKS BUT INSISTS TO REFUSE.FOR SWALLOW EVAL. NO ACUTE DISTRESS NOTED. NO SIGNS OF PAIN NOTED. IV LINE PATENT, INTACT; IVF INFUSING ORDERED. BERNARDO CATH PATENT, INTACT; DRAINING YELLOW URINE OUTPUT.SAFETY REMINDERS GIVEN. ON LOW BED WITH BILATERAL UPPER SIDE RAILS UP. CALL MARTIN WITHIN EASY REACH.
[2019-01-05] MEDS: DILTIAZEM HCL CD 240 MG PO SCH ×2 (09:00→10:20)
[2019-01-05] MEDS: DOCUSATE SODIUM 100 MG CAPSULE PO SCH ×3 (09:00→17:20)
[2019-01-05] MEDS: TAMSULOSIN 0.4 MG CAP.SR.24H PO SCH ×2 (09:00→10:19)
[2019-01-05] MEDS: DIVALPROEX SODIUM 500 MG TABLET.DR PO SCH ×3 (09:00→21:51)
[2019-01-05] MEDS: LACTOBACILLUS RHAMNOSUS GG 1 EACH CAP.SPRINK PO SCH ×3 (09:00→17:20)
[2019-01-05] MEDS: PANTOPRAZOLE 40 MG VIAL IV SCH (09:45)
[2019-01-05] MEDS: VANCOMYCIN 0.75 GM in IV D5W 250 ML IV SCH (09:47)
[2019-01-05] MEDS: NEOMY SULF/BACITRAC ZN/POLY 15 GM TUBE TP SCH (10:20)
[2019-01-05] MEDS: HYDROGEL DRESSING 90 GM TUBE TP SCH (10:21)
[2019-01-05] MEDS: Z GUARD REMEDY 2 OZ OINT TP SCH (10:30)
[2019-01-05] MEDS: POTASSIUM CL. PREMIX PERIPHER. 50 ML IV SCH ×3 (11:14→16:04)
[2019-01-05] MEDS: IV NS 0.9% 1,000 ML IV PRN (11:15)
[2019-01-05 16:00] VITALS: BP 142/70
[2019-01-05] MEDS: ENSURE ENLIVE 237 ML LIQUID (VANILLA) PO SCH ×2 (16:04→17:21)
--- NOTE | 2019-01-05 16:49 | NUR ---
PT CAN'T TOLERATE INFUSION OF K+IV EVEN IF IT IS ADMINISTERED WITH NS AT 100 ML/HR -ADJUSTED K+IV ACCORDING TO PT'S TOLERANCE DELAYING K+IV ADMINISTRATION
[2019-01-05] MEDS: MONTELUKAST SODIUM (10MG) 10 MG TABLET PO SCH (17:20)
--- NOTE | 2019-01-05 19:11 | NUR ---
PT LYING IN BED WITH NO S/S OF PAIN OR DISTRESS.TURNED EVERY TWO HRS.WILL MONITOR.
--- NOTE | 2019-01-05 19:30 | NUR ---
MS RN OPENING NOTE RECIEVED PATIENT IN BED. A/O X1, CONFUSED. TOLERATING ROOM AIR. RESPIRATIONS ARE EVEN AND UNLABORED. NO SOB NOTED. IV ACCESS IN CONI#18 RUNNING NS@100ML/HR. BERNARDO CATHERTER IS PRESENT, DRAINING TO GRAVITY, URINE IS YELLOW, SEDIMENT PRESENT. BED IS LOW AND LOCKED, SIDE RAILS UP X3, HOB ELEVATED 45 DEGREES. CALL LIGHT WITHIN REACH,. WILL CONTINUE TO MONITOR.
[2019-01-05 21:32] VITALS: BP 129/81
[2019-01-05] MEDS: ATORVASTATIN 10 MG TABLET PO SCH (21:51)
[2019-01-05] MEDS: risperiDONE 1 MG TABLET PO SCH (21:51)
[2019-01-06] MEDS: POTASSIUM CL. PREMIX PERIPHER. 50 ML IV SCH ×6 (00:17→16:08)
[2019-01-06] MEDS: ENOXAPARIN SODIUM 40 MG/0.4 ML DISP.SYRIN SQ SCH ×2 (00:20→23:30)
[2019-01-06] MEDS: VANCOMYCIN 0.75 GM in IV D5W 250 ML IV SCH ×3 (01:40→23:01)
[2019-01-06] MEDS: ALBUTEROL FS 2.5 MG/3 ML VIAL.NEB NEB SCH ×4 (01:53→19:55)
[2019-01-06] MEDS: PIPERACILLIN /TAZOBACTAM 3.375 G in IV D5W 100 ML IV SCH ×3 (04:18→23:01)
--- NOTE | 2019-01-06 06:30 | NUR ---
MS RN CLOSING NOTE PATIENT IN BED. A/O X1, CONFUSED. PATIENT PLACED ON OXYGEN 2L/MIN VIA NASAL CANNULA ON AND OFF THROUGHOUT NIGHT. RESPIRATIONS ARE EVEN AND UNLABORED. NO SOB NOTED. IV ACCESS MAINTAIN IN CONI #18 SL AND NEW IV ACCESS WAS PLACED LEFT WRIST #20 SL. BERNARDO CATHERTER IS MAINTAINED, DRAINING TO GRAVITY, URINE IS YELLOW, SEDIMENT PRESENT. BED IS LOW AND LOCKED, SIDE RAILS UP X3, HOB ELEVATED 45 DEGREES. CALL LIGHT WITHIN REACH,. WILL ENDORSE TO NEXT SHIFT.
[2019-01-06 07:38] LABS: BASOPHILS # (AUTO) 0.1 /CMM (0.0-0.2); BASOPHILS % (AUTO) 0.7 % (0.0-2.0); EOSINOPHILS % (AUTO) 0.4 % (0.0-6.0); HEMATOCRIT 32 % (39-51); HEMOGLOBIN 10.5 g/dL (13.5-17.5); LYMPHOCYTES # (AUTO) 0.6 /CMM (0.8-4.8); LYMPHOCYTES % (AUTO) 7.9 % (20.0-44.0); MEAN CORPUSCULAR HGB CONC 33 g/dl (31.0-36.0); MEAN CORPUSCULAR VOLUME 87 fL (80-96); MONOCYTES # (AUTO) 0.8 /CMM (0.1-1.30); MONOCYTES % (AUTO) 10.6 % (2.0-12.0); NEUTROPHILS # (AUTO) 6.2 /CMM (1.8-8.9); NEUTROPHILS % (AUTO) 80.4 % (43.0-81.0); PLATELET COUNT (AUTO) 320 /CMM (150-450); RED BLOOD CELL COUNT(AUTO) 3.66 MIL/uL (4.5-6.0); WHITE BLOOD COUNT (AUTO) 7.8 K/uL (4.3-11.0)
[2019-01-06 08:00] VITALS: BP 144/79
[2019-01-06 08:19] LABS: CALCIUM, SERUM 8.3 mg/dL (8.5-10.1); CREATININE 0.5 mg/dL (0.6-1.3); MAGNESIUM 1.8 mg/dL (1.8-2.4); PHOSPHORUS 2.9 mg/dL (2.5-4.9); POTASSIUM 3.3 mmol/L (3.5-5.1)
[2019-01-06] MEDS: PANTOPRAZOLE 40 MG VIAL IV SCH (10:22)
[2019-01-06] MEDS: ENSURE ENLIVE 237 ML LIQUID (VANILLA) PO SCH ×3 (10:22→16:51)
[2019-01-06] MEDS: DOCUSATE SODIUM 100 MG CAPSULE PO SCH ×2 (10:23→16:51)
[2019-01-06] MEDS: LACTOBACILLUS RHAMNOSUS GG 1 EACH CAP.SPRINK PO SCH ×2 (10:23→16:51)
[2019-01-06] MEDS: TAMSULOSIN 0.4 MG CAP.SR.24H PO SCH (10:23)
[2019-01-06] MEDS: DIVALPROEX SODIUM 500 MG TABLET.DR PO SCH ×2 (10:23→21:00)
[2019-01-06] MEDS: DILTIAZEM HCL CD 240 MG PO SCH (10:24)
[2019-01-06] MEDS ORDERED: POTASSIUM CHLORIDE 20 MEQ TAB.PRT.SR PO SCH (11:00)
[2019-01-06] MEDS: HYDROGEL DRESSING 90 GM TUBE TP SCH (11:34)
[2019-01-06] MEDS: Z GUARD REMEDY 2 OZ OINT TP SCH (11:35)
[2019-01-06] MEDS: NEOMY SULF/BACITRAC ZN/POLY 15 GM TUBE TP SCH (13:49)
--- NOTE | 2019-01-06 14:54 | NUR ---
NEW IV START RT. HAND #22 ANGIO.
[2019-01-06 16:00] VITALS: BP 127/67
[2019-01-06] MEDS: MONTELUKAST SODIUM (10MG) 10 MG TABLET PO SCH (18:00)
--- NOTE | 2019-01-06 19:00 | NUR ---
PT HAS HAD POTASSIUM IV REPLACEMENTS.
[2019-01-06 20:00] VITALS: BP 126/64
[2019-01-06] MEDS: ATORVASTATIN 10 MG TABLET PO SCH (22:00)
[2019-01-06] MEDS: risperiDONE 1 MG TABLET PO SCH (22:00)
--- NOTE | 2019-01-07 01:24 | NUR ---
lovonox is scheduled for 899
[2019-01-07] MEDS: ALBUTEROL FS 2.5 MG/3 ML VIAL.NEB NEB SCH ×4 (01:37→19:34)
[2019-01-07] MEDS: PIPERACILLIN /TAZOBACTAM 3.375 G in IV D5W 100 ML IV SCH ×3 (04:34→20:25)
[2019-01-07] MEDS: PANTOPRAZOLE 40 MG TABLET.DR PO SCH (06:27)
--- NOTE | 2019-01-07 06:28 | NUR ---
did not give,unable to swallow
--- NOTE | 2019-01-07 07:20 | NUR ---
MS RN OPENING NOTES RECEIVED PT IN BED, ASLEEP, DIFFICULT TO AROUSED, ONLY OPENS EYES, PER NIGHT NURSE PT WAS THE SAME LAST NIGHT, NON VERBAL AND NOT SWALLOWING. PT ON SUPPLEMENTARY OXYGEN AT 2L VIA NC, WITH NO ACUTE RESPIRATORY DISTRESS. PT DENIES ANY PAIN OR DISCOMFORT AT THIS TIME. ALSO DENIES CONCERNS OR QUESTIONS AT THIS TIME. IVF NS AT 100ML/HR TO CONI G18, INTACT AND FLUID INFUSING WELL. FC IN PLACE, WITH YELLOWISH URINE PRESENT IN THE BAG. PT KEPT COMFORTABLE. HOB ELEVATED. PT'S BED IN LOWEST, LOCKED, POSITION WITH SR X3. CALL LIGHT KEPT WITHIN REACH. WILL CONTINUE PLAN OF CARE.
[2019-01-07 07:28] LABS: BASOPHILS % (AUTO) 0.2 % (0.0-2.0); EOSINOPHILS % (AUTO) 0.7 % (0.0-6.0); HEMATOCRIT 33 % (39-51); LYMPHOCYTES # (AUTO) 0.3 /CMM (0.8-4.8); LYMPHOCYTES % (AUTO) 3.7 % (20.0-44.0); MEAN CORPUSCULAR HGB CONC 33 g/dl (31.0-36.0); MEAN CORPUSCULAR VOLUME 85 fL (80-96); MONOCYTES # (AUTO) 1.1 /CMM (0.1-1.30); MONOCYTES % (AUTO) 12.7 % (2.0-12.0); NEUTROPHILS # (AUTO) 7.1 /CMM (1.8-8.9); NEUTROPHILS % (AUTO) 82.7 % (43.0-81.0); PLATELET COUNT (AUTO) 338 /CMM (150-450); RED BLOOD CELL COUNT(AUTO) 3.89 MIL/uL (4.5-6.0); WHITE BLOOD COUNT (AUTO) 8.6 K/uL (4.3-11.0)
[2019-01-07 07:49] LABS: CALCIUM, SERUM 8.3 mg/dL (8.5-10.1); CREATININE 0.4 mg/dL (0.6-1.3); MAGNESIUM 1.6 mg/dL (1.8-2.4)
[2019-01-07] MEDS: ENSURE ENLIVE 237 ML LIQUID (VANILLA) PO SCH ×3 (08:00→17:51)
--- NOTE | 2019-01-07 08:10 | NUR ---
MS RN NOTES RT PRESENT AT BEDSIDE. ASSESSED PT. O2 SATURATION AT 100%. ALSO, GAVE BREATHING TREATMENT. WILL CONTINUE TO MONITOR.
[2019-01-07 08:27] VITALS: BP 138/81
[2019-01-07] MEDS: VANCOMYCIN 0.75 GM in IV D5W 250 ML IV SCH (08:27)
[2019-01-07 08:40] LABS: POTASSIUM 2.8 mmol/L (3.5-5.1)
[2019-01-07] MEDS: LACTOBACILLUS RHAMNOSUS GG 1 EACH CAP.SPRINK PO SCH ×2 (09:00→17:01)
[2019-01-07] MEDS: TAMSULOSIN 0.4 MG CAP.SR.24H PO SCH (09:00)
[2019-01-07] MEDS: DOCUSATE SODIUM 100 MG CAPSULE PO SCH ×2 (09:00→17:01)
[2019-01-07] MEDS: DIVALPROEX SODIUM 500 MG TABLET.DR PO SCH (09:00)
[2019-01-07] MEDS: DILTIAZEM HCL CD 240 MG PO SCH (09:55)
[2019-01-07] MEDS: Z GUARD REMEDY 2 OZ OINT TP PRN (09:59)
[2019-01-07] MEDS: HYDROGEL DRESSING 90 GM TUBE TP SCH (09:59)
[2019-01-07] MEDS: NEOMY SULF/BACITRAC ZN/POLY 15 GM TUBE TP SCH (09:59)
[2019-01-07] MEDS ORDERED: POTASSIUM CHLORIDE 10 MEQ/50 ML PREMIXED IVPB FOR PERIPHERAL LINE IV ONE (10:00)
[2019-01-07] MEDS: Z GUARD REMEDY 2 OZ OINT TP SCH (10:00)
--- NOTE | 2019-01-07 10:02 | NUR ---
MS RN NOTES PT UNABLE TO EAT BREAKFAST. PT JUST KEEPING FOOD IN THE MOUTH. MEDICINES NOT GIVEN. MD/SK MADE AWARE.
--- NOTE | 2019-01-07 10:02 | NUR ---
MS RN NOTES PT MADE AWARE OF POTASSIUM 2.8. ORDERS RECEIVED TO REPLACE IT WITH 60MEQ IV. ORDER PLACED. WILL CONTINUE TO MONITOR.
--- NOTE | 2019-01-07 10:10 | NUR ---
MS RN NOTES PT FOR IV REPLACEMENT POTASSIUM. BOTH MEDROOM PYXIS ARE EMPTY. PHARMAY MADE AWARE. AWAITING FOR MEDICINE TO ARRIVE.
[2019-01-07] MEDS: POTASSIUM CL. PREMIX PERIPHER. 50 ML IV SCH ×6 (10:40→15:46)
[2019-01-07] MEDS: Magnesium 1GM/D5W 100ML PREMIX 100 ML IV SCH ×2 (11:04→13:02)
[2019-01-07] MEDS: IV NS 0.9% 1,000 ML IV PRN (11:06)
--- NOTE | 2019-01-07 13:45 | NUR ---
MS RN NOTES MD/SK MADE AWARE PT'S REFUSING MEDS AND MEAL. PT ONLY KEEPING FOOD INSIDE THE MOUTH. ASPIRATINS PRECAUTIONS OBSERVED. AWAITING FOR MD'S RESPONSE.
--- NOTE | 2019-01-07 14:39 | NUR ---
MS RN NOTES MD/SK RESPONDED AND ORDERED SWALLOW EVAL. ORDER PLACED. ASPIRATION PRECAUTIONS OBSERVED. WILL CONTINUE PLAN OF CARE.
[2019-01-07 15:58] VITALS: BP 141/85
[2019-01-07] MEDS: MONTELUKAST SODIUM (10MG) 10 MG TABLET PO SCH (17:01)
--- NOTE | 2019-01-07 17:49 | NUR ---
MS RN NOTES PT ABLE TO SWALLOW 5PM MEDICATIONS. AND ABLE TO HAVE 4-5 SPOONS OF DINNER MEAL WITH THICK LIQUID WITH NO DIFFICULTY. WILL CONTINUE TO MONITOR.
--- NOTE | 2019-01-07 18:45 | NUR ---
MS RN CLOSING NOTES PT IN BED, AWAKE, VERBAL, KOREAN SPEAKING. PT TOLERATING RA, WITH NO ACUTE RESPIRATORY DISTRESS. PT DENIES ANY PAIN OR DISCOMFORT AT THIS TIME. IVF NS AT 100ML/HR TO CONI G18, INTACT AND FLUID INFUSING WELL. PIV MOHINI G20, FLUSHED WITH NS, INTACT AND OPERATIONAL. FC IN PLACE, WITH YELLOWISH URINE PRESENT IN THE BAG, URINE OUTPUT OF 600ML. ALL NEEDS AND CARE ATTENDED. ON ASPIRATION PRECAUTIONS. TURNED AND REPOSITIONED Q2 HOURS. PT KEPT COMFORTABLE. HOB ELEVATED. PT'S BED IN LOWEST, LOCKED, POSITION WITH SR X3. CALL LIGHT KEPT WITHIN REACH. WILL ENDORSE TO INCOMING CERTIFIED MEDICAL CODING SPECIALIST FOR DILLAN.
--- NOTE | 2019-01-07 19:15 | NUR ---
RN INITIAL NOTES: RECEIVED REPORT FORM PUNEET MAZARIEGOS. PT IN BED, AWAKE, A/O X1 , PATIENT KEPT REMOVING HIS OXYGEN/NASAL CANNULA, ROOM AIR SPO2 85%, ON 2L OXYGEN SPO2 93%, PT NOTED TO HAVE SHALLOW BREATHING, PER RT PT DOESN'T REALLY PERFORM DEEP BREATHING WELL, ATTEMPTED PUTTING BACK NASAL CANNULA/OXYGEN MULTIPLE TIMES, BUT PT KEPT TAKING IT OFF. PT CONFUSED, UNABLE TO COMPREHEND. IV ACCESS PATENT AND FLUSHING WELL, INFUSING WITH NS AT 100ML/HR. BERNARDO CATHETER IN PLACED, DRAINING INTO YELLOW COLORED URINE. BLE OFFLOADED. SAFETY PRECAUTIONS FOR FALL INITIATED, CALL LIGHT IN REACH, WILL CONTINUE MONITORING PT.
[2019-01-07 20:00] VITALS: BP 100/60
--- NOTE | 2019-01-07 20:00 | NUR ---
RN NOTES: FIXED THE OXYGEN AGAIN, PT WILL KEEP IT FOR AT LEAST 5MINS THEN REMOVE IT. RN SITTING OUTSIDE PT'S ROOM, FOR SAFETY, AND EASIER TO PUT THE OXYGEN BACK ONCE PT REMOVE IT.
[2019-01-07 21:05] VITALS: BP 100/60
[2019-01-07] MEDS ORDERED: DIVALPROEX SODIUM 125 MG TABLET.DR PO SCH (21:17)
[2019-01-07] MEDS: risperiDONE 1 MG TABLET PO SCH (21:24)
[2019-01-07] MEDS: ATORVASTATIN 10 MG TABLET PO SCH (21:24)
[2019-01-07] MEDS ORDERED: DIVALPROEX SODIUM 125 MG TABLET.DR PO ONE (21:30)
--- NOTE | 2019-01-07 21:40 | NUR ---
rn notes: meds crushed put in an apple sauce. placed pt on high miranda's position, aspiration protocol initiated, tried giving the medicine to the pt, pt opened his mouth and spit the entire meds. notified ornamental machine operator
--- NOTE | 2019-01-07 22:00 | NUR ---
rn notes: wound care treatment provided.
--- NOTE | 2019-01-07 23:23 | NUR ---
rn notes: assisted punchboard filling machine operator in providing bed bath to pt, pt remains on oxygen 3l via nc. will continue to monitor
[2019-01-07] MEDS: ENOXAPARIN SODIUM 40 MG/0.4 ML DISP.SYRIN SQ SCH (23:24)
[2019-01-08] MEDS: ALBUTEROL FS 2.5 MG/3 ML VIAL.NEB NEB SCH ×4 (01:03→19:41)
--- NOTE | 2019-01-08 01:18 | NUR ---
rn notes:' pt just finished with his breathing treatment, placed back on nasal cannula/oxygen at 3l
--- NOTE | 2019-01-08 02:55 | NUR ---
RT NOTE PT. RECEIVED ON 3L NASAL CANNULA. PT. REMOVED HIS NASAL CANNULA AND SATURATIONS WILL DROP TO 89%. SHALLOW BREATHING WAS NOTED. I ADVISED THE PATIENT TO KEEP HIS NASAL CANNULA ON. RN WAS AWARE. PT. COMPLIED AFTER A FEW TIMES. HR WAS 92 AND RR WAS 16 BPM. NO SOB NOTED. PATIENT TOLERATED TREATMENT WELL. AUSCULTATION REVEALED CLEAR AND DIMINISHED BREATH SOUNDS BILATERALLY. SPO2 WAS 95% AFTER TREATMENT AND PLACEMENT OF NASAL CANNULA. I FALLOWED UP WITH THE PATIENT 1HR LATER AND NASAL CANNULA WAS STILL IN PLACE. WILL CONTINUE TO MONITOR. Addendum: 01/08/19 at 0302 by MARIELA MORALES RT Amended: Links added.
[2019-01-08] MEDS: PIPERACILLIN /TAZOBACTAM 3.375 G in IV D5W 100 ML IV SCH ×3 (04:04→20:27)
[2019-01-08 06:18] LABS: POTASSIUM 3.4 mmol/L (3.5-5.1)
[2019-01-08 06:19] LABS: CALCIUM, SERUM 8.4 mg/dL (8.5-10.1); CREATININE 0.5 mg/dL (0.6-1.3); MAGNESIUM 2.2 mg/dL (1.8-2.4); PHOSPHORUS 3.2 mg/dL (2.5-4.9)
[2019-01-08 06:23] LABS: BASOPHILS % (AUTO) 0.4 % (0.0-2.0); EOSINOPHILS % (AUTO) 1.4 % (0.0-6.0); HEMATOCRIT 34 % (39-51); HEMOGLOBIN 11.1 g/dL (13.5-17.5); LYMPHOCYTES # (AUTO) 0.5 /CMM (0.8-4.8); MEAN CORPUSCULAR HGB CONC 33 g/dl (31.0-36.0); MEAN CORPUSCULAR VOLUME 85 fL (80-96); MONOCYTES # (AUTO) 0.8 /CMM (0.1-1.30); MONOCYTES % (AUTO) 14.3 % (2.0-12.0); NEUTROPHILS % (AUTO) 73.9 % (43.0-81.0); PLATELET COUNT (AUTO) 376 /CMM (150-450); WHITE BLOOD COUNT (AUTO) 5.4 K/uL (4.3-11.0)
[2019-01-08] MEDS: IV NS 0.9% 1,000 ML IV PRN ×2 (06:34→21:37)
--- NOTE | 2019-01-08 06:50 | NUR ---
RN NOTES: pt remains confused, a/o x1, pt kept removing nasal cannula, iv access remains patent and flushing well, infusing with ivf as ordered. ble and bue offloaded on pillows. cortes catheter remains in placed, bag emptied by gmat tutor. vs remains stable, needs attended. pt for swallow eval today. safety precautions for fall remains engaged, call light in reach, will endorse to day rn for continuity of care.
[2019-01-08 07:30] VITALS: BP 126/80
--- NOTE | 2019-01-08 08:00 | NUR ---
MS RN NOTES PATIENT IN BED ALERT, ORIENTED X1. NO SOB OR ACUTE DISTRESS NOTED. PERIPHERAL IV INTACT PATENT. BED IN LOW LOCKED POSITION. CALL LIGHT WITHIN REACH. BERNARDO INTACT PATENT. DRAINING YELLOW URIN. WILL CONTINUE TO MONITOR.
[2019-01-08] MEDS: DILTIAZEM HCL CD 240 MG PO SCH (08:14)
[2019-01-08] MEDS: PANTOPRAZOLE 40 MG TABLET.DR PO SCH (08:14)
[2019-01-08] MEDS: DIVALPROEX SODIUM 125 MG TABLET.DR PO SCH ×2 (08:14→21:00)
[2019-01-08] MEDS: LACTOBACILLUS RHAMNOSUS GG 1 EACH CAP.SPRINK PO SCH ×2 (08:14→17:44)
[2019-01-08] MEDS: DOCUSATE SODIUM 100 MG CAPSULE PO SCH ×2 (08:15→17:44)
[2019-01-08] MEDS: ENSURE ENLIVE 237 ML LIQUID (VANILLA) PO SCH ×3 (08:16→17:44)
[2019-01-08] MEDS: Z GUARD REMEDY 2 OZ OINT TP SCH (08:16)
[2019-01-08] MEDS: NEOMY SULF/BACITRAC ZN/POLY 15 GM TUBE TP SCH (08:17)
[2019-01-08] MEDS: HYDROGEL DRESSING 90 GM TUBE TP SCH (08:17)
[2019-01-08] MEDS: TAMSULOSIN 0.4 MG CAP.SR.24H PO SCH (08:20)
[2019-01-08] MEDS ORDERED: POTASSIUM CHLORIDE 20 MEQ TAB.PRT.SR PO SCH (09:30)
[2019-01-08 16:00] VITALS: BP 111/70
[2019-01-08] MEDS: MONTELUKAST SODIUM (10MG) 10 MG TABLET PO SCH (17:44)
--- NOTE | 2019-01-08 18:53 | NUR ---
MS RN NOTES. PATIENT IN BED RESTING NO SOB OR ACUTE DISTRESS NOTED. ALL DUE MEDICATIONS ADMINISTERED. ALL NEEDS MET. NO ACUTE CHANGES DURING SHIFT. WILL ENDORSE CARE TO PM SHIFT.
[2019-01-08 21:17] VITALS: BP 146/90
[2019-01-08] MEDS: risperiDONE 1 MG TABLET PO SCH (21:43)
[2019-01-08] MEDS: ATORVASTATIN 10 MG TABLET PO SCH (21:43)
--- NOTE | 2019-01-08 22:09 | NUR ---
MS/RN DEPAKOTE EXTENDED RELEASE NOT ADMINISTERED, PATIENT SPITS OFF THE MED.
--- NOTE | 2019-01-08 22:22 | NUR ---
MS/RN ON INITIAL ROUNDING AT 1930, PATIENT WAS IN BED AWAKE, ALERT, NO ORIENTATION NOTED AT THIS TIME THE PATIENT WILL JUST REPEAT THE QUESTIONS ASKED, NO C/O PAIN, NO DISTRESS NOTED, CALL LIGHT IN REACH, FALL PRECAUTIONS, WILL MONITOR.
[2019-01-09] MEDS: ENOXAPARIN SODIUM 40 MG/0.4 ML DISP.SYRIN SQ SCH ×2 (00:17→23:02)
[2019-01-09] MEDS: ALBUTEROL FS 2.5 MG/3 ML VIAL.NEB NEB SCH ×4 (01:39→20:09)
[2019-01-09] MEDS: PIPERACILLIN /TAZOBACTAM 3.375 G in IV D5W 100 ML IV SCH ×3 (03:44→19:40)
[2019-01-09 06:27] LABS: CALCIUM, SERUM 8.3 mg/dL (8.5-10.1); CREATININE 0.5 mg/dL (0.6-1.3); POTASSIUM 3.4 mmol/L (3.5-5.1)
--- NOTE | 2019-01-09 06:32 | NUR ---
MS/RN PATIENT IS STILL SLEEPING AT THIS TIME, APPEAR COMFORTABLE, NO SIGNS OF DISTRESS NOTED, CALL LIGHT IN REACH. ALL NEEDS ATTENDED AT THIS TIME, WILL CONTINUE TO MONITOR.
[2019-01-09 07:00] VITALS: BP 113/60
--- NOTE | 2019-01-09 08:00 | NUR ---
MS RN NOTES PATIENT IN BED RESTING NO SOB OR ACUTE DISTRESS NOTED. PATIENT ALERT, ORIENTED X1. PERIPHERAL IV INTACT PATENT.BERNARDO CATH INTACT PATIENT DRAINING YELLOW URIN. BED IN LOW LOCKED POSITION. CALL LIGHT WITHIN REACH. WILL CONTINUE TO MONITOR.
[2019-01-09] MEDS: TAMSULOSIN 0.4 MG CAP.SR.24H PO SCH (08:44)
[2019-01-09] MEDS: VALPROIC ACID 250 MG/5 ML UDC PO SCH ×2 (08:44→20:37)
[2019-01-09] MEDS: DOCUSATE SODIUM 100 MG CAPSULE PO SCH ×2 (08:44→17:00)
[2019-01-09] MEDS: LACTOBACILLUS RHAMNOSUS GG 1 EACH CAP.SPRINK PO SCH ×2 (08:45→17:39)
[2019-01-09] MEDS: DILTIAZEM HCL CD 240 MG PO SCH (08:45)
[2019-01-09] MEDS: PANTOPRAZOLE 40 MG TABLET.DR PO SCH (08:45)
[2019-01-09] MEDS: ENSURE ENLIVE 237 ML LIQUID (VANILLA) PO SCH ×3 (08:46→17:40)
[2019-01-09] MEDS: HYDROGEL DRESSING 90 GM TUBE TP SCH (08:46)
[2019-01-09] MEDS: NEOMY SULF/BACITRAC ZN/POLY 15 GM TUBE TP SCH (08:47)
[2019-01-09] MEDS: Z GUARD REMEDY 2 OZ OINT TP SCH (08:47)
[2019-01-09] MEDS ORDERED: POTASSIUM CHLORIDE 20 MEQ POWDER PACKET PO SCH (10:00)
[2019-01-09] MEDS: IV NS 0.9% 1,000 ML IV PRN (10:30)
[2019-01-09 16:00] VITALS: BP 114/73
[2019-01-09] MEDS: MONTELUKAST SODIUM (10MG) 10 MG TABLET PO SCH (17:39)
--- NOTE | 2019-01-09 18:43 | NUR ---
MS RN NOTES PATIENT IN BED RESTING NO SOB OR ACUTE DISTRESS NOTED. PATIENT ALERT, ORIENTED X1. ALL DUE MEDICATIONS ADMINISTERED. ALL NEEDS MET. ENDORSED CARE TO PM SHIFT.
--- NOTE | 2019-01-09 19:00 | NUR ---
MS RN OPENING NOTES Received patient in bed, alert, oriented x 1. Breathing even and unlabored. Not in any distress. Peripheral IV infusing at 100mL/hr. Low catheter in place draining clear, yellow urine. Safety measures in place; call light within reach, bed in lowest, locked position. Will continue to monitor accordingly
[2019-01-09 20:00] VITALS: BP 129/70
[2019-01-09] MEDS: ATORVASTATIN 10 MG TABLET PO SCH (21:11)
[2019-01-09] MEDS: risperiDONE 1 MG TABLET PO SCH (21:11)
[2019-01-10] MEDS: ALBUTEROL FS 2.5 MG/3 ML VIAL.NEB NEB SCH ×4 (02:42→20:01)
[2019-01-10] MEDS: PIPERACILLIN /TAZOBACTAM 3.375 G in IV D5W 100 ML IV SCH ×3 (04:00→19:50)
[2019-01-10] MEDS: IV NS 0.9% 1,000 ML IV PRN (04:10)
--- NOTE | 2019-01-10 06:20 | NUR ---
MS RN CLOSING NOTES Patient resting in bed, alert, oriented x 1. Breathing even and unlabored. Not in any distress. IV Zosyn currently infusing at 25mL/hr. Turned and reposition. Kept clean and dry. Low cath in place, drained 500 mL of clear yellow urine. Safety measures in place. Will endorse DILLAN to oncoming RN
[2019-01-10 07:25] LABS: BASOPHILS % (AUTO) 0.7 % (0.0-2.0); EOSINOPHILS % (AUTO) 3.9 % (0.0-6.0); HEMATOCRIT 37 % (39-51); HEMOGLOBIN 11.8 g/dL (13.5-17.5); LYMPHOCYTES # (AUTO) 0.7 /CMM (0.8-4.8); LYMPHOCYTES % (AUTO) 15.1 % (20.0-44.0); MEAN CORPUSCULAR HGB CONC 32 g/dl (31.0-36.0); MEAN CORPUSCULAR VOLUME 86 fL (80-96); MONOCYTES # (AUTO) 0.6 /CMM (0.1-1.30); MONOCYTES % (AUTO) 12.3 % (2.0-12.0); NEUTROPHILS # (AUTO) 3.1 /CMM (1.8-8.9); PLATELET COUNT (AUTO) 394 /CMM (150-450); RED BLOOD CELL COUNT(AUTO) 4.27 MIL/uL (4.5-6.0); WHITE BLOOD COUNT (AUTO) 4.5 K/uL (4.3-11.0)
[2019-01-10 07:30] VITALS: BP 124/82
--- NOTE | 2019-01-10 07:50 | NUR ---
MS RN OPENING NOTES RECEIVED PATIENT IN BED ALERT AND AWAKE ORIENTED X1. NO EVIDENCE OF PAIN NOR DISCOMFORT AT THIS TIME. HOB ELEVATED. NO SOB. CONI # 18 AND MOHINI# 20 SL INTACT AND PATENT. ON NS @ 100 ML/HR JASON WELL. BED IN LOWEST POSITION, LOCKED. BED SIDERAILS UPX2. CALL ;LIGHT WITHIN REACH.
[2019-01-10 08:06] LABS: CALCIUM, SERUM 8.5 mg/dL (8.5-10.1); CREATININE 0.6 mg/dL (0.6-1.3); POTASSIUM 3.4 mmol/L (3.5-5.1)
[2019-01-10] MEDS: ENSURE ENLIVE 237 ML LIQUID (VANILLA) PO SCH ×3 (08:16→17:43)
[2019-01-10] MEDS: PANTOPRAZOLE 40 MG TABLET.DR PO SCH ×2 (08:16→08:21)
[2019-01-10] MEDS: DOCUSATE SODIUM 100 MG CAPSULE PO SCH ×3 (09:00→17:43)
[2019-01-10] MEDS: LACTOBACILLUS RHAMNOSUS GG 1 EACH CAP.SPRINK PO SCH ×3 (09:00→17:43)
[2019-01-10] MEDS: POTASSIUM CHLORIDE 20 MEQ TAB.PRT.SR PO SCH ×2 (09:00→09:21)
[2019-01-10] MEDS: DILTIAZEM HCL CD 240 MG PO SCH ×2 (09:00→09:24)
[2019-01-10] MEDS: TAMSULOSIN 0.4 MG CAP.SR.24H PO SCH ×2 (09:00→09:21)
[2019-01-10] MEDS: VALPROIC ACID 250 MG/5 ML UDC PO SCH ×3 (09:00→21:16)
[2019-01-10] MEDS: Z GUARD REMEDY 2 OZ OINT TP SCH (09:25)
[2019-01-10] MEDS: HYDROGEL DRESSING 90 GM TUBE TP SCH (09:25)
--- NOTE | 2019-01-10 09:50 | NUR ---
MS RN NOTES ADMINISTERED AM MEDS, BUT PATIENT SPIT ALL MEDICATIONS OUT DESPITE OF EDUCATION AND EXPLANATIONS OF RISKS AND BENEFITS.
--- NOTE | 2019-01-10 10:00 | NUR ---
MS RN NOTES AWAITING FOR NEOMYCIN OINTMENT. PHARMACY MADE AWARE.
[2019-01-10] MEDS: POTASSIUM CL. PREMIX PERIPHER. 50 ML IV SCH ×2 (10:31→11:33)
[2019-01-10] MEDS: NEOMY SULF/BACITRAC ZN/POLY 15 GM TUBE TP SCH (11:38)
--- NOTE | 2019-01-10 11:38 | NUR ---
MS RN NOTES NEOSPORIN OINTMENT RECEIVED FROM PHARMACY. ADMINISTERED ORDERED.
[2019-01-10 16:00] VITALS: BP 113/66
[2019-01-10] MEDS: MONTELUKAST SODIUM (10MG) 10 MG TABLET PO SCH (17:43)
--- NOTE | 2019-01-10 18:45 | NUR ---
MS RN CLOSING NOTES ALERT AND ORIENTED X1. HOB ELEVATED. NO SOB OBSERVED. DENIES ANY C/O PAIN NOR DISCOMFORT AT THIS TIME. PATIENT REQUIRES FREQUENT ENCOURAGEMENT WITH CARE. PATIENT ALSO REMOVES 02 VIA NC DESPITE OF EDUCATION, REALITY ORIENTATION AND FREQUENT REMINDERS PROVIDED. IN NO APPARENT DISTRESS. BED IN LOWEST POSITION, LOCKED. WOUND CARE DONE JASON WELL. CALL LIGHT WITHIN REACH.
--- NOTE | 2019-01-10 19:00 | NUR ---
MS RN OPENING NOTES Received patient in bed, alert, oriented x 1. Breathing even and unlabored. Not in any distress. Peripheral IV infusing at 75mL/hr. Low catheter in place draining clear yellow urine. Safety measures in place; call light within reach, bed in low, locked position. Will continue to monitor accordingly
[2019-01-10 20:00] VITALS: BP 126/70
[2019-01-10 21:08] VITALS: BP 126/70
[2019-01-10] MEDS: risperiDONE 1 MG TABLET PO SCH (21:16)
[2019-01-10] MEDS: ATORVASTATIN 10 MG TABLET PO SCH (21:16)
[2019-01-10] MEDS: ENOXAPARIN SODIUM 40 MG/0.4 ML DISP.SYRIN SQ SCH (22:53)
[2019-01-11] MEDS: ALBUTEROL FS 2.5 MG/3 ML VIAL.NEB NEB SCH ×4 (00:32→19:30)
[2019-01-11] MEDS: IV NS 0.9% 1,000 ML IV PRN (00:50)
[2019-01-11] MEDS: PIPERACILLIN /TAZOBACTAM 3.375 G in IV D5W 100 ML IV SCH ×3 (04:00→19:32)
--- NOTE | 2019-01-11 06:29 | NUR ---
MS RN CLOSING NOTES Patient resting in bed, alert, oriented x 1. Breathing even and unlabored. Not in any distress. IV Zosyn currently infusing at 25mL/hr. Turned and repositioned. Kept clean and dry. Low cath in place, drained 600 mL of clear yellow urine. Safety measures in place. Will endorse DILLAN to oncoming RN
--- NOTE | 2019-01-11 07:15 | NUR ---
MS RN OPENING NOTES RECEIVED PATIENT IN BED, ASLEEP. AROUSABLE TO VERBAL AND TACTILE STIMULI. HOB ELEVATED. NO SOB. NO EVIDENCE OF PAIN NOR DISCOMFORT AT THIS TIME. RFA #22 SL AND MOHINI# 20 SL INTACT AND PATENT. ON NS @ 100 ML/HR JASON WELL. BED IN LOWEST POSITION, LOCKED. BED SIDERAILS UPX2. CALL ;LIGHT WITHIN REACH.
[2019-01-11 07:47] LABS: CALCIUM, SERUM 7.8 mg/dL (8.5-10.1); CREATININE 0.4 mg/dL (0.6-1.3); POTASSIUM 3.9 mmol/L (3.5-5.1)
[2019-01-11] MEDS: ENSURE ENLIVE 237 ML LIQUID (VANILLA) PO SCH ×3 (08:17→17:32)
[2019-01-11] MEDS: PANTOPRAZOLE 40 MG TABLET.DR PO SCH (08:17)
[2019-01-11 09:15] VITALS: BP 124/78
[2019-01-11] MEDS: LACTOBACILLUS RHAMNOSUS GG 1 EACH CAP.SPRINK PO SCH ×2 (09:29→17:32)
[2019-01-11] MEDS: TAMSULOSIN 0.4 MG CAP.SR.24H PO SCH (09:29)
[2019-01-11] MEDS: DOCUSATE SODIUM 100 MG CAPSULE PO SCH ×2 (09:29→17:32)
[2019-01-11] MEDS: DILTIAZEM HCL CD 240 MG PO SCH (09:29)
[2019-01-11] MEDS: VALPROIC ACID 250 MG/5 ML UDC PO SCH ×2 (09:29→20:16)
[2019-01-11] MEDS: NEOMY SULF/BACITRAC ZN/POLY 15 GM TUBE TP SCH (09:30)
[2019-01-11] MEDS: Z GUARD REMEDY 2 OZ OINT TP PRN ×3 (09:30→09:32)
[2019-01-11] MEDS: HYDROGEL DRESSING 90 GM TUBE TP SCH (09:30)
[2019-01-11] MEDS: Z GUARD REMEDY 2 OZ OINT TP SCH (09:33)
[2019-01-11] MEDS: PROSOURCE / PROSTAT (PYXIS) 30 ML UDC GT SCH ×2 (12:52→17:35)
[2019-01-11 16:41] VITALS: BP_SYST 118; BP_SYST 155; BP_DIAS 71; BP_DIAS 85
[2019-01-11] MEDS: MONTELUKAST SODIUM (10MG) 10 MG TABLET PO SCH (17:32)
--- NOTE | 2019-01-11 19:24 | NUR ---
MS RN CLOSING NOTES ALERT AND ORIENTED X1. HOB ELEVATED. NO SOB OBSERVED. HOB ELEVATED. DENIES ANY C/O PAIN NOR DISCOMFORT AT THIS TIME. RT HAND SL #22 INTACT AND PATENT, LT HAND SL # 22 INTACT AND PATENT. IN NO APPARENT DISTRESS. BED IN LOWEST POSITION, LOCKED. WOUND CARE DONE JASON WELL. IN NO APPARENT DISTRESS. CALL LIGHT WITHIN REACH.
--- NOTE | 2019-01-11 19:25 | NUR ---
MS RN OPENING NOTES NOTES Received patient A/O x1, awake, on Dunbar's position on bed. On O2 inhalation via NC @ 2LPM, saturating well, no SOB/respiratory distress noted. Patient denies any discomfort at this time. Kept on bed clean, dry and comfortable. Call light within easy reach. On fall precautions. Will continue to monitor accordingly.
[2019-01-11 20:00] VITALS: BP 117/70
[2019-01-11] MEDS: ATORVASTATIN 10 MG TABLET PO SCH (22:00)
[2019-01-11] MEDS: risperiDONE 1 MG TABLET PO SCH (22:00)
[2019-01-11] MEDS: ENOXAPARIN SODIUM 40 MG/0.4 ML DISP.SYRIN SQ SCH (22:34)
[2019-01-12] MEDS: ALBUTEROL FS 2.5 MG/3 ML VIAL.NEB NEB SCH ×4 (01:39→19:30)
[2019-01-12] MEDS: PIPERACILLIN /TAZOBACTAM 3.375 G in IV D5W 100 ML IV SCH ×2 (03:45→12:01)
--- NOTE | 2019-01-12 06:31 | NUR ---
MS RN CLOSING NOTES Patient asleep, easily awaken. On O2 inhalation via NC, no SOB/respiratory distress noted. All due meds given as ordered. All nursing needs attended. No new complaints made, no new unusualities noted. Kept on bed clean, dry and comfortable. Call light within easy reach. Endorsed to the next shift.
--- NOTE | 2019-01-12 07:19 | NUR ---
MS RN OPENING NOTES RECEIVED PATIENT AWAKE IN BED IN NO ACUTE SIGNS OF DISTRESS. HOB ELEVATED. A/O X1. VERBALLY RESPONSIVE AND CONFUSED. NO SIGNS OF GRIMACING OR DISCOMFORTS NOTED AT THIS TIME. ON SUPPLEMENTAL 02 VIA N/C @ 2LPM, TOLERATING WELL WITH NO SOB NOTED. IV ACCESS ON MOHINI# 20 INTACT AND PATENT, IV ATB ZOSYN INFUSING AT THIS TIME, NO S/S OF INFILTRATIONS NOTED. SAFETY MEASURES IN PLACE. BED IN LOWEST LOCKED POSITION WITH BED SIDE-RAILS UP X2. CALL LIGHT WITHIN REACH. WILL CONTINUE TO MONITOR.
[2019-01-12] MEDS: LACTOBACILLUS RHAMNOSUS GG 1 EACH CAP.SPRINK PO SCH ×2 (08:29→16:49)
[2019-01-12] MEDS: VALPROIC ACID 250 MG/5 ML UDC PO SCH (08:29)
[2019-01-12] MEDS: PANTOPRAZOLE 40 MG TABLET.DR PO SCH (08:29)
[2019-01-12] MEDS: TAMSULOSIN 0.4 MG CAP.SR.24H PO SCH (08:29)
[2019-01-12] MEDS: DOCUSATE SODIUM 100 MG CAPSULE PO SCH ×2 (08:29→16:50)
[2019-01-12] MEDS: ENSURE ENLIVE 237 ML LIQUID (VANILLA) PO SCH ×3 (08:29→17:11)
[2019-01-12] MEDS: PROSOURCE / PROSTAT (PYXIS) 30 ML UDC GT SCH ×2 (08:29→16:50)
[2019-01-12] MEDS: DILTIAZEM HCL CD 240 MG PO SCH (08:53)
[2019-01-12] MEDS: NEOMY SULF/BACITRAC ZN/POLY 15 GM TUBE TP SCH (09:23)
[2019-01-12] MEDS: HYDROGEL DRESSING 90 GM TUBE TP SCH (09:23)
[2019-01-12] MEDS: Z GUARD REMEDY 2 OZ OINT TP SCH (09:24)
[2019-01-12 10:03] VITALS: BP 132/76
--- NOTE | 2019-01-12 15:51 | NUR ---
RN NOTES PATIENT SEEN BY DR ROMERO THIS AFTERNOON WITH ORDER TO D/C PT TO [facility]. CALLED AND REPORT GIVEN TO RNS SYEDA AND STATED THAT PT WILL GO TO ROOM 24A. CONTACTED PT'S SISTER MACIEL LANE @ [facility]# [phone] AND SPOKE TO ASSISTED LIVING FACILITY REFRIGERATING TECHNICIAN AND SAID THAT PT NO LONGER LIVE IN THEIR FACILITY.
[2019-01-12 16:20] VITALS: BP 105/58
[2019-01-12] MEDS: MONTELUKAST SODIUM (10MG) 10 MG TABLET PO SCH (17:12)
--- NOTE | 2019-01-12 19:14 | NUR ---
RN DISCHARGED NOTES PT DISCHARGED TO [facility] IN STABLE CONDITION. A/O X1. RESPONDS TO VERBAL STIMULI AT TIMES. V/S TAKEN, STABLE AND RECORDED. PHOTOS OF SKIN ISSUES TAKEN AND FILED ON CHART. PT HAS NO BELONGINGS WHEN HE WAS ADMITTED. BERNARDO CATHETER KEPT IN PLACE PER DR ROMERO'S ORDER. IV ACCESS REMOVED WITH NO BLEEDING NOTED, DRY DRESSING APPLIED TO SITE. REPORT GIVEN TO EMS AND EARLIER TO [facility] SYEDA. PT LEFT UNIT VIA GURNEY AT 1900 WITH EMS STAFF. MD AND CHARGE NURSE AWARE OF DISCHARGE.
--- NOTE | 2019-01-12 19:45 | NUR ---
RT NOTE PT IS DISCHARGED.
== END 2019-01-13 | DRG 853 ==
LOC: ER 19:55 → TELE 22:25 → MED 01-03 13:14
PROVIDERS: ADMIT Legal Medicine; ATTEND Legal Medicine
PROC: 0JBG0ZZ Excision of Right Lower Arm Subcutaneous Tissue and Fascia, Open Approach (ICD-10-PCS; principal; 2019-01-04)
PROC: 0JBD0ZZ Excision of Right Upper Arm Subcutaneous Tissue and Fascia, Open Approach (ICD-10-PCS; 2019-01-10)
DX: A41.9 Sepsis, unspecified organism (principal); L89.013 Pressure ulcer of right elbow, stage 3; J69.0 Pneumonitis due to inhalation of food and vomit; G93.41 Metabolic encephalopathy; J96.01 Acute respiratory failure with hypoxia; E87.2 Acidosis; F03.90 Unspecified dementia, unspecified severity, without behavioral disturbance, psychotic disturbance, mood disturbance, and anxiety; J45.909 Unspecified asthma, uncomplicated; M19.90 Unspecified osteoarthritis, unspecified site; E78.2 Mixed hyperlipidemia; Z88.2 Allergy status to sulfonamides; M20.42 Other hammer toe(s) (acquired), left foot; M20.41 Other hammer toe(s) (acquired), right foot; L89.520 Pressure ulcer of left ankle, unstageable; L89.510 Pressure ulcer of right ankle, unstageable; I73.9 Peripheral vascular disease, unspecified; B35.1 Tinea unguium; L84 Corns and callosities; L89.100 Pressure ulcer of unspecified part of back, unstageable; S70.211A Abrasion, right hip, initial encounter; X58.XXXA Exposure to other specified factors, initial encounter; Y92.89 Other specified places as the place of occurrence of the external cause; D64.9 Anemia, unspecified; E87.6 Hypokalemia; R47.02 Dysphasia; J31.0 Chronic rhinitis
CPT/HCPCS: 36415; 71045-TC; 80048-TC; 80076-TC; 80202-TC; 83605-TC; 83735-TC; 83880; 84100-TC; 84484-TC; 85025-TC; 87040-TC; 87081-TC; 92526; 92611-TC; 94799-TC; A6248; A6403; C9113; G0378; J1650; J2543; J3370; J3475; J3480; J7030; J7060